=== PATIENT | female | born 1945 | race Caucasian/White ===

== ENCOUNTER 2019-03-04 15:16 | Inpatient (IN) ==
[2019-03-04 15:54] LABS: BASO# 0.06 X1000 (0.0-0.2); BASO% 0.5 % (0.0-0.8); EOS# 0.24 X1000 (0.0-0.7); EOS% 2.1 % (0.0-10.0); HEMATOCRIT 34.8 % (37.0-47.0); HEMOGLOBIN 10.9 g/dL (12.0-16.0); IMM GRAN# 0.04 X1000 (0.0-0.04); IMM GRAN% 0.4 % (0.0-0.5); LYMPH# 1.83 X1000 (1.2-3.4); MCH 29.1 PG (27-31); MCHC 31.3 g/dL (33-37); MONO# 0.93 X1000 (0.11-0.59); MONO% 8.2 % (1.7-9.3); MPV 10.1 FL (7.4-10.4); NEUT# 8.31 X1000 (1.4-6.5); NEUT% 72.8 % (42.2-75.2); PLT 219 X1000 (130-400); RBC 3.74 XMIL (4.2-5.4); RDW 15.4 % (11.5-14.5); WBC 11.41 X1000 (4.8-10.8)
[2019-03-04] MEDS ORDERED: SOLU-MEDROL IV ONE (15:55)
[2019-03-04] MEDS ORDERED: DUONEB (A & A) INH ONE (15:55)
--- NOTE | 2019-03-04 16:00 | EKG Report ---
Test Performed on : 03/04/2019 3:36:19 PM Test Reason : sob Blood Pressure : / mmHG Vent. Rate : 067 BPM Atrial Rate : 067 BPM P-R Int : 136 ms QRS Dur : 090 ms QT Int : 426 ms P-R-T Axes : 049 008 090 degrees QTc Int : 450 ms Normal sinus rhythm. Nonspecific T wave abnormality Abnormal ECG When compared with ECG of 12-NOV-2018 06:53, Nonspecific T wave abnormality, worse in Lateral leads Unconfirmed Result
[2019-03-04 16:08] LABS: INR 0.87; PROTIME 12.6 Seconds (11.0-16.0); PTT 21.4 Seconds (22.3-41.8)
[2019-03-04] MEDS ORDERED: ZOFRAN IV ONE (16:25)
[2019-03-04 16:44] LABS: ALB/GLOB RATIO 1.4; ALBUMIN 3.6 g/dL (3.5-5.0); CALCIUM 8.8 mg/dL (8.8-10.2); CREATININE 1.1 mg/dL (0.5-0.9); POTASSIUM 4.4 mmol/L (3.5-5.1); TOTAL BILIRUBIN 0.25 mg/dL (0.20-1.00); TOTAL PROTEIN 6.1 g/dL (6.3-8.3)
--- NOTE | 2019-03-04 17:11 | Diag Imaging Result Doc PS360 ---
EXAM: CHEST-2 VIEWS INDICATION: sob TECHNIQUE: 2 views COMPARISON: 11/11/2018 FINDINGS: The central vasculature appears mildly prominent suggesting mild pulmonary venous congestion similar to the previous study. The lungs are grossly clear, otherwise. There is no discrete pleural fluid collection or pneumothorax. There is stable cardiomegaly. IMPRESSION: Cardiomegaly and suggestion of mild pulmonary venous congestion. Electronically signed by Sagar Hunter 03/04/2019 5:09 PM
[2019-03-04] MEDS ORDERED: LASIX IV ONE (17:57)
--- NOTE | 2019-03-04 18:07 | PROVIDER DOCUMENTATION ---
This chart was entered by Uyen Gottlieb Scribe, acting as scribe for Leland Garza MD. HPI-Respiratory General - General Chief Complaint: Shortness of Breath Stated Complaint: SMOTHERING SPELLS/HIGH BP Time Seen by Provider: 03/04/19 15:36 Source: patient Allergies/Adverse Reactions: Patient Allergies Allergy/AdvReac Type Severity Reaction Status Date / Time amoxicillin Allergy SHORTNESS Verified 03/04/19 18:00 OF BREATH clarithromycin [From Biaxin] Allergy Unknown Verified 03/04/19 18:00 clavulanic acid Allergy SHORTNESS Verified 03/04/19 18:00 [From Augmentin] OF BREATH levofloxacin [From Levaquin] Allergy Unknown Verified 03/04/19 18:00 NSAIDS (Non-Steroidal Allergy Unknown Verified 03/04/19 18:00 Anti-Inflamma Penicillins Allergy Unknown Verified 03/04/19 18:00 pork derived (porcine) Allergy Unknown Verified 03/04/19 18:00 shellfish derived Allergy Unknown Verified 03/04/19 18:00 spironolactone Allergy Unknown Verified 03/04/19 18:00 [From Aldactone] Home Medications: Home Medication List Medication Instructions Recorded Confirmed Last Taken Type Aspirin [Aspir-Low] 81 mg PO QHS 11/26/17 11/11/18 11/10/18 History Budesonide/Formoterol Fumarate 10.2 gm IH QHS 11/26/17 11/11/18 11/10/18 History [Symbicort 160-4.5 Mcg Inhaler] Duloxetine [Cymbalta] 60 mg PO QHS 11/26/17 11/11/18 1 Day Ago History ~11/10/18 Hydroxychloroquine Sulfate 200 mg PO BID 11/26/17 11/11/18 11/10/18 History [Plaquenil] Isosorbide Mononitrate E.r. [Imdur] 30 mg PO DAILY 11/26/17 11/11/18 11/10/18 History Levothyroxine Sodium [Synthroid] 200 microgm PO QHS 11/26/17 11/11/18 11/10/18 History Montelukast Sodium [Singulair] 10 mg PO QAM 11/26/17 11/11/18 11/10/18 History Omeprazole [Prilosec] 20 mg PO BID 11/26/17 11/11/18 11/10/18 History Potassium Chloride [Klor-Con] 20 meq PO QAM 11/26/17 11/11/18 11/10/18 History Pregabalin [Lyrica] 50 mg PO QHS 11/26/17 11/11/18 11/10/18 History Tiotropium Bent Inhaler 1 puff INH RTDAILY 11/26/17 11/11/18 11/10/18 History [Spiriva] Tramadol [Ultram] 50 mg PO Q8HR PRN #20 tab 12/06/17 11/11/18 11/10/18 Rx Cholecalciferol (Vitamin D3) 2,000 unit PO DAILY 03/30/18 11/11/18 11/10/18 History [Vitamin D3] Cyanocobalamin (Vitamin B-12) 1,000 mcg SL DAILY 03/30/18 11/11/18 11/10/18 History [Vitamin B-12] Nitroglycerin 0.4 mg SL PRN PRN 03/30/18 11/11/18 Unknown History Metoprolol Succinate [Toprol Xl] 50 mg PO DAILY 04/02/18 11/11/18 11/10/18 History - History of Present Illness-Resp Nature of Presenting Problem: Patient is a 73 year old female who presents with shortness of breath that started 5 days ago. States having chest pain that radiates to left arm, nausea and vomiting this morning. History of COPD and uses CPAP. Denies home oxygen use. Patient's O2 sat on room air was 88%. Quality of Pain: reports: tightness Severity in ED: reports: mild Onset/Duration: reports: 5 days ago Timing: reports: still present, getting worse Associated Symptoms: reports: chest pain/soreness, shortness of breath, other (nausea and vomiting.) Similar Symptoms Previously?: Yes Recently seen or treated by another doctor?: No Review of Systems - Adult - REVIEW OF SYSTEMS - ADULT Constitutional: reports: no symptoms reported. denies: chills, fever, fatique Eyes: reports: no symptoms reported Ears, Nose, Mouth & Throat: reports: no symptoms reported Cardiovascular: reports: see HPI, chest pain. denies: irregular heart rate, palpitations Respiratory: reports: see HPI, shortness of breath. denies: cough, wheezing Gastrointestinal: reports: see HPI, nausea, vomiting. denies: abdominal pain, diarrhea Genitourinary: reports: no symptoms reported Musculoskeletal: reports: no symptoms reported Integumentary: reports: no symptoms reported Neurological: reports: no symptoms reported Psychiatric: reports: no symptoms reported Endocrine: reports: no symptoms reported Hematologic/Lymphatic: reports: no symptoms reported Allergic/Immunologic: reports: no symptoms reported All Other Systems: Reviewed and Negative Past History - Adult - PAST MEDICAL HISTORY-ADULT Review of Records: reports: Old Records Reviewed, Nursing Assessment Review, M edications Reviewed, Social history reviewed & non-contributory. Major Childhood Illnesses: reports: denies history Cardiovascular: reports: CHF, HTN, [place] Respiratory: reports: COPD, sleep apnea Gastrointestinal: reports: GERD Obstetrical/Gynecological: reports: denies history Genitourinary: reports: kidney disease Musculoskeletal: reports: denies history Neurological: reports: CVA, TIA Psychiatric: reports: depression Endocrine/Immune: reports: thyroid disorder Other Conditions: reports: denies history, other (fibromylegia) - PRIOR SURGERIES/PROCEDURES Surgical/Procedure History: reports: reviewed, not pertinent, cholecystectomy, hysterectomy, - IMMUNIZATION STATUS Childhood Immunizations: See Nurse Assessment Flu Vaccine: See Nurse Assessment - FAMILY HISTORY Family History: reviewed, not pertinent - SOCIAL HISTORY Smoking: cigarettes (former) Substance Use: denies Physical Exam-General - PHYSICAL EXAM-ADULT Initial Vital Signs Reviewed: Yes - CONSTITUTIONAL General Appearance: alert, no apparent distress. negative: lethargic, slow to respond - HEAD, EARS, NOSE, MOUTH & THROAT HENMT: normocephalic/atraumatic, moist mucous membranes. negative: angioedema, hearing deficit - RESPIRATORY Respiratory: chest non-tender, decreased breath sounds. negative: respiratory distress, crackles, rhonchi, wheezing - CARDIOVASCULAR Cardiovascular: normal peripheral pulses, regular rate, rhythm. negative: tachycardia, systolic murmur - GASTROINTESTINAL (ABDOMEN) Abdominal Exam: normal bowel sounds, non tender, soft. negative: guarding, rebound - MUSCULOSKELETAL Extremity: non-tender, normal inspection. negative: deformity, erythema, swelling - SKIN Integumentary: normal color, normal turgor, warm/dry. negative: cyanosis, ecchymosis, erythema, jaundice - NEUROLOGIC Neurologic: grossly normal. negative: aphasia, facial droop - PSYCHIATRIC Psych/Mental Status: normal mood/affect, oriented x 3. negative: anxious - HEART Score HEART Score: History: Slightly Suspicious HEART Score: ECG: Non-Specific Repolarization Disturbance/LBBB/PM HEART Score: Age: > or = 65 Years HEART Score: Risk Factors for Atherosclerotic Disease: > or = 3 Risk Factors or History of Atherosclerotic Disease HEART Score: Troponin: < or = Normal Limit (5) Total HEART Score:: 5 Progress - PLAN OF CARE/RESULTS Progress/Plan/Lab Results: Vital Signs - 8 hr 03/04/19 15:20 03/04/19 15:39 03/04/19 15:41 Temperature 99.1 F Pulse Rate 74 69 69 Respiratory Rate 24 22 38 H Blood Pressure 185/93 170/85 O2 Sat by Pulse Oximetry 91 L 90 L 90 L 03/04/19 15:50 03/04/19 16:00 03/04/19 16:02 Temperature Pulse Rate 68 66 66 Respiratory Rate 32 H 19 31 H Blood Pressure 186/81 O2 Sat by Pulse Oximetry 92 L 91 L 92 L 03/04/19 16:09 03/04/19 16:10 03/04/19 16:20 Temperature Pulse Rate 67 67 65 Respiratory Rate 27 H 25 H 28 H Blood Pressure O2 Sat by Pulse Oximetry 94 L 96 96 03/04/19 16:30 03/04/19 16:40 03/04/19 16:51 Temperature Pulse Rate 69 76 69 Respiratory Rate 22 19 21 Blood Pressure O2 Sat by Pulse Oximetry 93 L 90 L 03/04/19 17:00 03/04/19 17:10 03/04/19 17:20 Temperature Pulse Rate 70 69 71 Respiratory Rate 21 30 H 24 Blood Pressure O2 Sat by Pulse Oximetry 92 L 91 L 03/04/19 17:30 03/04/19 17:31 03/04/19 17:32 Temperature Pulse Rate 71 70 69 Respiratory Rate 17 24 21 Blood Pressure 194/82 182/77 O2 Sat by Pulse Oximetry 90 L 92 L 89 L 03/04/19 17:40 03/04/19 17:50 03/04/19 17:58 Temperature Pulse Rate 72 70 77 Respiratory Rate 20 17 25 H Blood Pressure 197/92 O2 Sat by Pulse Oximetry 93 L 93 L 03/04/19 18:00 Temperature Pulse Rate 76 Respiratory Rate 26 H Blood Pressure 197/92 O2 Sat by Pulse Oximetry 86 L Laboratory Results - last 24 hr 03/04/19 03/04/19 03/04/19 15:35 15:35 16:10 WBC 11.41 H RBC 3.74 L Hgb 10.9 L Hct 34.8 L MCV 93.0 MCH 29.1 MCHC 31.3 L RDW Std Deviation 15.4 H Plt Count 219 MPV 10.1 Immature Gran % (Auto) 0.4 Neut % (Auto) 72.8 Lymph % (Auto) 16.0 L [place] % (Auto) 8.2 Eos % (Auto) 2.1 Baso % (Auto) 0.5 Immature Gran # (Auto) 0.04 Neut # (Auto) 8.31 H Lymph # (Auto) 1.83 [place] # (Auto) 0.93 H Eos # (Auto) 0.24 Baso # (Auto) 0.06 PT 12.6 INR 0.87 PTT (Actin FS) 21.4 L Sodium 142 Potassium 4.4 Chloride 104 Carbon Dioxide 28 Anion Gap 10 BUN 14 Creatinine 1.1 H Estimated GFR/1.73 m2 49 BUN/Creatinine Ratio 13 Glucose 89 Calculated Osmolality 283 Calcium 8.8 Total Bilirubin 0.25 AST 32 H ALT 28 Alkaline Phosphatase 132 H Creatine Kinase 79 Troponin T [id number] Pept Total Protein 6.1 L Albumin 3.6 Globulin 2.5 Albumin/Globulin Ratio 1.4 03/04/19 03/04/19 16:10 16:10 WBC RBC Hgb Hct MCV MCH MCHC RDW Std Deviation Plt Count MPV Immature Gran % (Auto) Neut % (Auto) Lymph % (Auto) [place] % (Auto) Eos % (Auto) Baso % (Auto) Immature Gran # (Auto) Neut # (Auto) Lymph # (Auto) [place] # (Auto) Eos # (Auto) Baso # (Auto) PT INR PTT (Actin FS) Sodium Potassium Chloride Carbon Dioxide Anion Gap BUN Creatinine Estimated GFR/1.73 m2 BUN/Creatinine Ratio Glucose Calculated Osmolality Calcium Total Bilirubin AST ALT Alkaline Phosphatase Creatine Kinase Troponin T < 0.010 [id number] Pept 1739 H Total Protein Albumin Globulin Albumin/Globulin Ratio Orders Category Date Time Status Cardiac Monitoring DIRECTED Care 03/04/19 15:27 Active Oxygen Therapy- ED Nursing DIRECTED Care 03/04/19 15:27 Active Saline Loc NOW Care 03/04/19 15:27 Active CHEST-2 VIEWS [RAD] Stat Exams 03/04/19 15:27 Completed CBC WITH ELECTRONIC DIFF [HEME] Stat Lab 03/04/19 15:35 Completed CK PROFILE [SP CHEM] Stat Lab 03/04/19 16:10 Completed COMPREHENSIVE METABOLIC PANEL [CHEM] Stat Lab 03/04/19 16:10 Completed PRO B-NATRIURETIC PEPTIDE Stat Lab 03/04/19 16:10 Completed PROTIME WITH INR [COAG] Stat Lab 03/04/19 15:35 Completed PTT [COAG] Stat Lab 03/04/19 15:35 Completed TROPONIN T Stat Lab 03/04/19 16:10 Completed Albuterol 2.5MG/Ipratrop 0.5MG [Duoneb (A & A)] Med 03/04/19 15:55 Discontinued 3 ml INH NOW ONE Furosemide [Lasix] Med 03/04/19 17:57 Discontinued 20 mg IV NOW ONE Methylprednisolone Sod Succ [Solu-Medrol] Med 03/04/19 15:55 Discontinued 80 mg IV NOW ONE Ondansetron [Zofran] Med 03/04/19 16:25 Discontinued 4 mg IV NOW ONE Aerosol Treatments Routine Oth 03/04/19 15:56 Completed Aerosol Treatments Stat Oth 03/04/19 15:56 Completed CP/SOB/Palp >45 yrs of Age Stat Oth 03/04/19 15:25 Ordered EKG [EKG] Stat Ther 03/04/19 15:27 Draft A/P: hypoxia , sat 86% not using home oxygen, Xray pulmonary edema. CP rule out, initial sets troponin neg. has history of IL with stints. BP increased, but had BP to 215/104. Result Diagrams: 03/04/19 15:35 03/04/19 16:10 - EKG 1 Time of EKG reading by physician:: 15:36 EKG Read and Signed by:: Юлия Pham EKG Interpretation (*Must complete 3 of following elements*): Abnormal Rate: 67 Rhythm: normal sinus rhythm [place]: normal DC Interval: normal Comments: nonspecific T wave abnormality - XRAY 1 XRAY Study: Chest Impression: Abnormal ([facility] [address], [address], [place] [address] Department of Imaging Patient: [facility] Date: 03/04/19#: [id number] : 1945ADM [facility] [id number] Age/Sex: 73/FRoom/Bed: Loc: ED Ordering Physician: Юлия Pham MD Family Physician: Annetta Weiss Reason for Procedure: sob Signed EXAM: CHEST-2 VIEWS INDICATION: sob TECHNIQUE: 2 views COMPARISON: 11/11/2018 FINDINGS: The central vasculature appears mildly prominent suggesting mild pulmonary venous congestion similar to the previous study. The lungs are grossly clear, ot herwise. There is no discrete pleural fluid collection or pneumothorax. There is stable cardiomegaly. IMPRESSION: Cardiomegaly and suggestion of mild pulmonary venous congestion. Electronically signed by Sagar Hunter 03/04/2019 5:09 PM 03/04/191708 Interpreting Physician: Sagar Hunter MD Dictated Date/Time: 03/04/191707 cc: Юлия Pham MD; Annetta Weiss) Departure - Departure Date of Disposition Decision: 03/04/19 Time of Disposition Decision: 18:05 DIAGNOSIS: Hypoxia, Pulmonary edema, Chest pain at rest Disposition: ADMITTED INPATIENT 09 Certified Medical Emergency: Emergent Condition: Stable Additional Freetext Instructions: We have examined and treated you today on an emergency basis only. This was not a substitute for, or an effort to provide, complete medical care. In most cases, you must let your doctor check you again. Tell your doctor about any new or lasting problems. We cannot recognize and treat all injuries or illnesses in one Emergency Department visit. If you had special tests, such as X-rays or CT scans, will be reviewed by radiologist and will call you if there are any new suggestions Follow up with primary care provider in 1 to 2 days if no improvement. If you do not have a primary care provider, you need to choose one as soon as possible. Take medicines as prescribed. Monitor for any side effects or adverse events from medications. If any side effect, adverse event or rash develops, or if you suspect any other adverse reaction to the medication, then discontinue the medication immediately and contact clinic /PCP or go to the nearest ER. Narcotic meds / sedative meds instruction - patent advised not to drive, operate any machinery or go into water after taking meds as it may impair mental ability to react to the situation in an appropriate manner . Continue other current medicines. Follow up with PCP within 24-48 hours, or sooner if symptoms worsen or fail to improve. Patient / guardian verbalizes understanding of treatment plan, medication, and side effects and agrees with treatment plan. Patient leaves ER in stable condition and ambulatory state. Return to ER as needed. Discharge instructions reviewed verbally and given to patient in written form. Follow up with primary care provider. Referrals and Follow-Ups: Annetta Weiss CRNP [Primary Care Provider] - - Critical Care Note This patient required my direct & personal management of CC.: No Attestation - Physician/ KAUSHIK Attestation Patient care was provided by Advanced Practice Provider:: No The physician spent face to face time with patient:: Yes Advanced Practice Provider documentation review:: Supervising physician onsite and consulted in the evaluation and care of this patient. The physician did have a face to face encounter with the patient. This chart was documented by the indicated scribe, (Uyen Gottlieb Scribe) and accurately reflects the services I performed and decisions made by me, Leland Larry MD, as attested by the provider's signature.
[2019-03-04] MEDS ORDERED: NITROGLYCERIN SL PRN (18:20)
[2019-03-04] MEDS ORDERED: ULTRAM PO PRN (18:20)
[2019-03-04] MEDS ORDERED: TYLENOL PO PRN (19:25)
[2019-03-04] MEDS ORDERED: ZOFRAN IV PRN (19:25)
[2019-03-04] MEDS ORDERED: DUONEB (A & A) INH SCH (19:30)
[2019-03-04] MEDS ORDERED: SYNTHROID PO SCH (21:00)
--- NOTE | 2019-03-04 21:17 | HISTORY AND PHYSICAL ---
PRIMARY CARE PROVIDER: BEVERLY García CHIEF COMPLAINT: Shortness of breath, elevated blood pressure, nausea, vomiting, and chest pain that radiated into her neck that has been present for the past 5 days and progressively worsened. HISTORY OF PRESENTING ILLNESS: This is a 73-year-old female who presents to [facility] with shortness of breath, along with some chest pain substernal that radiated into her neck. She had nausea and vomiting this morning, but the others have been going on for 5 days and progressively worsened. When she arrived, she had an O2 saturation on room air of 86% to 88%. Denies home oxygen use but states that she does use a CPAP at night. She states that since she has been using the CPAP, she has had an increase in falls and dizziness. Her chest x-ray showed cardiomegaly and suggestion of mild pulmonary venous congestion. Her proBNP was elevated at 1739, which is the highest it has been for her. In October it was 763, so these presentations are consistent with an acute CHF exacerbation. It is noted that she had an echocardiogram in 10/2018 that showed an ejection fraction of 55% with left ventricular function normal. On arrival her blood pressure was 185/93, currently it is 197/92. She is receiving Lasix 20 mg IV x1 at this moment, and she will be admitted for further evaluation and treatment. PAST MEDICAL HISTORY: CHF, hypertension, MT, COPD, sleep apnea, GERD, CKD, CVA, depression, hypothyroidism, fibromyalgia. PAST SURGICAL HISTORY: Cholecystectomy, hysterectomy and a . FAMILY HISTORY: Reviewed and noncontributory. SOCIAL HISTORY: She currently lives alone, is a former smoker but has not smoked in many years. Denies any alcohol or illicit drug use. ALLERGIES: Amoxicillin, clarithromycin, Augmentin, Levaquin, NSAIDs, penicillin, pork-derived, shellfish-derived and spironolactone. HOME MEDICATIONS: She takes aspirin 81 mg p.o. at bedtime; Symbicort 160/4.5 mcg inhaler at bedtime; vitamin D3, 2000 units p.o. daily; vitamin B12, 1000 mcg sublingually daily; Cymbalta 60 mg p.o. at bedtime; Plaquenil 200 mg p.o. b.i.d.; Imdur 30 mg p.o. daily; Synthroid 200 mcg p.o. at bedtime; Toprol 50 mg p.o. daily; montelukast sodium 10 mg p.o. q.p.m.; nitroglycerin 0.4 mg sublingually p.r.n.; Prilosec 20 mg p.o. b.i.d.; potassium 20 mEq p.o. q.a.m.; Lyrica 50 mg p.o. at bedtime; Spiriva 1 inhalation daily; Ultram 50 mg p.o. q.8 hours p.r.n. LABORATORY DATA: White blood cell count of 11.41, hemoglobin 10.9, hematocrit 34.8, platelets 219,000. PT and INR of 12.6 and 0.87. Sodium 142, potassium 4.4, chloride 104, CO2 is 28, BUN 14, creatinine 1.1, glucose 89. First set of cardiac enzymes were negative. ProBNP of 1739. DIAGNOSTIC DATA: Chest x-ray showed cardiomegaly and a suggestion of mild pulmonary venous congestion. EKG showed normal sinus rhythm at 67. REVIEW OF SYSTEMS: She denied any fever, chills or blurred vision. She has been positive for shortness of breath and chest pain that radiated into her neck, nausea and vomiting. Denied any abdominal pain, constipation, diarrhea or burning or hurting with urination. PHYSICAL EXAMINATION: VITAL SIGNS: On arrival she had a temperature of 99.1 degrees, pulse 74, respirations 24, blood pressure 185/93, saturating 91% on room air. She did drop to 86% to 88% on room air. Currently on 2 L, she is 94% via nasal cannula. GENERAL: This is a 73-year-old female who is sitting up in the bed and answers questions appropriately. HEENT: Normocephalic, atraumatic. Normal ENT inspection. Oropharynx and nares are clear. EYES: Pupils are equal, round and reactive to light and accommodation. Extraocular movements are intact. NECK: Normal inspection. Normal range of motion. LUNGS: Decreased breath sounds bilaterally. O2 via nasal cannula currently in use. Equal lung expansion and chest wall movement noted at this time. HEART: Regular rate and rhythm. No murmurs, rubs or gallops. ABDOMEN: Soft, nontender, nondistended. Bowel sounds are present x4 quadrants. MUSCULOSKELETAL: She has 5/5 strength x4 extremities. NEUROLOGICAL: The cranial nerves 2-12 appear grossly intact. ASSESSMENT: 1. Chest pain. 2. Acute respiratory failure. 3. Acute congestive heart failure exacerbation with pulmonary edema. 4. Accelerated hypertension. PLAN: She will be admitted to the CIC unit, placed on telemetry, O2 per protocol. We will do Lasix 40 mg IV q.12. We will recheck an echocardiogram. We know she has had one in October, but suspicion of an exacerbation and possible cardiac event so we will repeat that. We will continue her other home medications. Place her on a healthy-heart diet. Use her CPAP at night. Recheck a CBC and BMP in the a.m. We will do her serial cardiac enzymes and further orders after seen by attending. Dictated by BEVERLY Green for Jeronimo Zavala MD cc: BEVERLY Green CRNP Agree with the above. the following is my own face to face assessment. patient with acute hypoxic respiratory failure. has been off her lasix for almost a week. last echo with pulmonary htn but no ronit CHF. suspect she has at least a component of acute on chronic diastolic CHF. given signficant change in BNP, will repeat echo and trend troponins. diuresis and monitor. bibasilar crackles on exam. globally decreased air entry but no wheezing. will continue home steroid dose as she has been on a slow taper for almost 2 months. CKD3: stable. monitor ins and outs. gerd: cont PPI COPD: no exacerbation at this time. will give nebs. hypothyroidism: check TSH. cont synthroid CAD: continue home meds. MTDD
[2019-03-04] MEDS: SYMBICORT 160/4.5 MICROGM INHALER INH SCH (21:24)
[2019-03-04] MEDS: PRILOSEC PO SCH (22:25)
[2019-03-04] MEDS: LASIX IV SCH (22:26)
[2019-03-04] MEDS: ASPIRIN EC PO SCH (22:26)
[2019-03-04] MEDS: CYMBALTA PO SCH (22:26)
[2019-03-04] MEDS: PLAQUENIL PO SCH (22:33)
[2019-03-04] MEDS: LYRICA PO SCH (22:35)
[2019-03-05 03:22] LABS: HEMATOCRIT 34.8 % (37.0-47.0); HEMOGLOBIN 11.1 g/dL (12.0-16.0); MCH 29.2 PG (27-31); MCHC 31.9 g/dL (33-37); MCV 91.6 FL (81-99); MONO% 1.5 % (1.7-9.3); MPV 10.1 FL (7.4-10.4); NEUT% 90.2 % (42.2-75.2); PLT 232 X1000 (130-400); RDW 14.9 % (11.5-14.5); WBC 8.12 X1000 (4.8-10.8)
[2019-03-05 03:23] LABS: BASO# 0.01 X1000 (0.0-0.2); BASO% 0.1 % (0.0-0.8); IMM GRAN# 0.02 X1000 (0.0-0.04); IMM GRAN% 0.2 % (0.0-0.5); LYMPH# 0.65 X1000 (1.2-3.4); MONO# 0.12 X1000 (0.11-0.59); NEUT# 7.32 X1000 (1.4-6.5)
[2019-03-05 04:09] LABS: ALB/GLOB RATIO 1.2; ALBUMIN 3.7 g/dL (3.5-5.0); CALCIUM 8.9 mg/dL (8.8-10.2); CREATININE 1.1 mg/dL (0.5-0.9); DIRECT BILIRUBIN 0.1 mg/dL (0.00-0.20); POTASSIUM 3.8 mmol/L (3.5-5.1); TOTAL BILIRUBIN 0.28 mg/dL (0.20-1.00); TOTAL PROTEIN 6.9 g/dL (6.3-8.3)
[2019-03-05 05:48] LABS: URINE SOURCE CLEAN CATCH
[2019-03-05 05:50] LABS: BILIRUBIN URINE NEGATIVE (NEGATIVE); BLOOD URINE NEGATIVE (NEGATIVE); COLOR YELLOW; GLUCOSE URINE NEGATIVE (NEGATIVE); KETONE URINE NEGATIVE (NEGATIVE); LEUKOCYTES URINE NEGATIVE (NEGATIVE); NITRITE URINE NEGATIVE (NEGATIVE); PROTEIN URINE NEGATIVE (NEGATIVE); SP GRAVITY URINE 1.009; TURBIDITY URINE CLEAR (CLEAR); UROBILINOGEN URINE NORMAL (NORMAL)
[2019-03-05 05:51] LABS: URINE RBC <10 /HPF (<10); URINE WBC <10 /HPF (<10)
[2019-03-05 05:52] LABS: UR EPITHELIAL CELLS <10 /HPF (<10); URINE BACTERIA NEGATIVE /HPF
[2019-03-05] MEDS: NORVASC PO SCH ×2 (06:20→09:24)
[2019-03-05] MEDS: DUONEB (A & A) INH PRN ×3 (08:07→16:23)
[2019-03-05] MEDS: SPIRIVA INH SCH (08:12)
[2019-03-05] MEDS ORDERED: VITAMIN B-12 PO SCH (09:00)
[2019-03-05] MEDS ORDERED: VITAMIN D PO SCH (09:00)
[2019-03-05] MEDS: PLAQUENIL PO SCH ×2 (09:24→21:21)
[2019-03-05] MEDS: TOPROL XL PO SCH (09:24)
[2019-03-05] MEDS: KLOR-CON POWDER PACKET PO SCH (09:24)
[2019-03-05] MEDS: PREDNISONE PO SCH (09:24)
[2019-03-05] MEDS: IMDUR PO SCH (09:24)
[2019-03-05] MEDS: SINGULAIR PO SCH (09:24)
[2019-03-05] MEDS: PRILOSEC PO SCH ×2 (09:24→21:21)
[2019-03-05] MEDS: LASIX IV SCH ×2 (09:24→21:21)
[2019-03-05] MEDS: MIRALAX PO SCH (09:26)
--- NOTE | 2019-03-05 18:10 | PROGRESS NOTE ---
DATE: 03/05/2019 INTERVAL HISTORY: The patient with significant improvement in dyspnea and a feeling of smothering with diuresis overnight. Still complaining of aching to burning pain that comes and goes from her epigastrium to the base of her throat. Also reports this discomfort radiates to the back somewhat. Denies nausea, vomiting, diarrhea, fever, chills. No acute events overnight. REVIEW OF SYSTEMS: 12 point review of systems negative except as per Interval History. LABS: WBC 8.1, hemoglobin 11.1, hematocrit 34.8, platelets 232,000. Sodium 142, potassium 3.8, BUN 15, creatinine 1.1, glucose 142, AST 27, ALT 27, alkaline phosphatase 135. Troponin negative x 3. TSH 0.1, free T4 1.56. Urinalysis normal. VITAL SIGNS: T-max 98.5, pulse 70, respirations 17, blood pressure 145/65. O2 sat 99% on 2 L by nasal cannula. PHYSICAL EXAMINATION: General: No acute distress. Vitals: As above. HEENT: Normocephalic, atraumatic. Moist mucous membranes. No cervical adenopathy. Cardiovascular: Regular rate and rhythm. No murmurs noted. Pulmonary: Still with faint bibasilar crackles on exam, but improved from previous. Slightly decreased air entry, but no wheezing noted. Abdomen: Soft. Mild epigastric tenderness without rebound or guarding. Bowel sounds positive. Extremities: Peripheral pulses intact. Trace lower extremity edema bilaterally. Neurologic: Cranial nerves grossly intact. No focal deficits. Psychiatric: Normal mood and affect. Awake, alert, oriented x 3. Skin: No new rashes or lesions identified. ASSESSMENT AND PLAN: 1. Acute hypoxic respiratory failure. Patient with O2 saturations down to 86% on room air on arrival in the ED. Mild cardiomegaly and pulmonary venous congestion on initial x-ray. BNP significantly elevated from previous at 1739, last BNP 763. Minimal leukocytosis, but no convincing evidence of infection. Presumably placed on Lasix for presumed acute on chronic diastolic congestive heart failure and pulmonary hypertension. The patient has responded well to Lasix overnight. Symptomatically much improved. Oxygen sats slightly improved. Still had sats as low as 91% on 2 L of oxygen, but overall trend seems to be improved. Remains afebrile. No leukocytosis today. Will continue Lasix and monitor. Repeat echocardiogram pending. Last echocardiogram showed enlarged left ventricle, mild pulmonary hypertension with pressure of 38. No clear diastolic dysfunction. Normal EF of 55%. 2. Acute on chronic diastolic congestive heart failure, pulmonary hypertension. Treatment and evaluation as above. Repeat chest x-ray in the morning. 3. Chronic obstructive pulmonary disease. The patient with definitely decreased breath sounds, but no wheezing on exam. Likely contributing to respiratory issues, but no signs of exacerbation at this time. Continue nebulizers and monitor. 4. Abdominal pain, gastroesophageal reflux disease. The patient reports epigastric pain with radiation to the back and up to the base of the throat. Favor GERD, especially in light of patient's long history of GERD and history of H pylori. However, given location tenderness and radiation to the back, we will check a lipase to evaluate for pancreatitis, although this is felt to be much less likely. Continue PPI and monitor. If patient continues to have issues despite PPI, then may need evaluation by GI for failure of therapy for H pylori, although this could likely be done as an outpatient. 5. Hypertension. Patient with some occasional moderate elevations, but overall acceptable control on current Norvasc, Lasix, isosorbide, metoprolol. 6. Coronary artery disease, continue aspirin. 7. Chronic kidney disease 3. Creatinine stable, monitor. 8. Chronic pain. Continue home tramadol. 9. Hypothyroidism. TSH slightly low, but free T4 within normal limits. Continue current dose of Synthroid for now, but recommend recheck with PCP after discharge to see if her Synthroid dose may need to be adjusted. MTDD
[2019-03-05] MEDS: SYMBICORT 160/4.5 MICROGM INHALER INH SCH (20:20)
[2019-03-05] MEDS: ASPIRIN EC PO SCH (21:21)
[2019-03-05] MEDS: CYMBALTA PO SCH (21:21)
[2019-03-05] MEDS: LYRICA PO SCH (21:25)
[2019-03-06] MEDS: SYNTHROID PO SCH (06:19)
--- NOTE | 2019-03-06 07:09 | Diag Imaging Result Doc PS360 ---
EXAM: CHEST-PORTABLE HISTORY: dyspnea TECHNIQUE: Chest single view COMPARISON: 03/04/2019 FINDINGS: The lungs are well expanded. The heart is mildly enlarged. The vessels are mildly distended. There are no infiltrates. No effusion identified. IMPRESSION: Mild cardiomegaly with mild pulmonary edema. No interval improvement. Electronically signed by Lukasz Barraza 03/06/2019 7:06 AM
[2019-03-06 07:19] LABS: BASO# 0.04 X1000 (0.0-0.2); BASO% 0.4 % (0.0-0.8); EOS# 0.15 X1000 (0.0-0.7); EOS% 1.4 % (0.0-10.0); HEMATOCRIT 35.3 % (37.0-47.0); HEMOGLOBIN 11.3 g/dL (12.0-16.0); IMM GRAN# 0.04 X1000 (0.0-0.04); IMM GRAN% 0.4 % (0.0-0.5); LYMPH# 2.21 X1000 (1.2-3.4); LYMPH% 20.5 % (20.5-51.1); MCH 29.4 PG (27-31); MCV 91.9 FL (81-99); MONO# 0.93 X1000 (0.11-0.59); MONO% 8.6 % (1.7-9.3); MPV 10.1 FL (7.4-10.4); NEUT% 68.7 % (42.2-75.2); PLT 250 X1000 (130-400); RBC 3.84 XMIL (4.2-5.4); WBC 10.77 X1000 (4.8-10.8)
[2019-03-06 07:47] LABS: CALCIUM 8.7 mg/dL (8.8-10.2); CREATININE 1.3 mg/dL (0.5-0.9); POTASSIUM 3.8 mmol/L (3.5-5.1)
[2019-03-06] MEDS: SPIRIVA INH SCH (07:51)
[2019-03-06] MEDS: NORVASC PO SCH (08:13)
[2019-03-06] MEDS: KLOR-CON POWDER PACKET PO SCH (08:13)
[2019-03-06] MEDS: MIRALAX PO SCH (08:13)
[2019-03-06] MEDS: TOPROL XL PO SCH (08:13)
[2019-03-06] MEDS: PRILOSEC PO SCH ×2 (08:13→21:21)
[2019-03-06] MEDS: PLAQUENIL PO SCH ×2 (08:13→21:20)
[2019-03-06] MEDS: SINGULAIR PO SCH (08:13)
[2019-03-06] MEDS: IMDUR PO SCH (08:14)
[2019-03-06] MEDS: PREDNISONE PO SCH (08:14)
[2019-03-06] MEDS: LASIX IV SCH (08:14)
[2019-03-06] MEDS: DUONEB (A & A) INH PRN ×3 (11:32→19:55)
--- NOTE | 2019-03-06 17:05 | PROGRESS NOTE ---
DATE: 03/06/2019 INTERVAL HISTORY: No acute events overnight. She was hypertensive with systolic blood pressure 190 on presentation which had gone down to 140. She is still needing oxygen. SUBJECTIVE: She is feeling much better at least at rest as compared to when she came in with. We discussed about physical exam findings. I answered all of her questions. Currently, she is denying any chest pain. She denies any shortness of breath at rest. She has not really done a lot of ambulation. She still complains of occasional burning sensation in epigastric region, which is intermittent. VITAL SIGNS: Currently vitals suggest temperature 97.8 degrees, pulse 62, respiratory rate 20, blood pressure 148/76, saturating 97% on 2 L cannula. PHYSICAL EXAMINATION: General: Does not appear in any acute distress. Mouth: Oral cavity is moist. Lungs: She has inspiratory crackles bilateral infrascapular region. No wheeze or rhonchi. Heart: S1, S2 normal. No murmur, rub, or gallop. Abdomen: Obese, nontender. Extremities: She does have bilateral lower extremity edema extending up to knee level. LABS: Input and output not charted appropriately, though she had good urine output according to her. Normocytic anemia, normal platelet count. On BMP, she had elevation in her BUN and slight elevation of creatinine. MICROBIOLOGY: No new data. IMAGING: Chest x-ray today morning suggests she has persistent bilateral pulmonary edema. ASSESSMENT AND PLAN: 1. Acute hypoxic respiratory failure due to acute on chronic diastolic congestive heart failure exacerbation and pulmonary hypertension. Apparently, patient was taken off her home Lasix by her culture media laboratory assistant 7 days prior to presentation because of her recurrent falls, which could have triggered her episode. Continue intravenous Lasix and follow up with basic metabolic panel tomorrow. She does have baseline chronic kidney disease stage III. Continue oxygen to maintain saturation more than 92%. Start patient on incentive spirometry. 2. History of coronary artery disease and essential hypertension. Continue home aspirin, amlodipine, isosorbide, metoprolol/ 3. History of chronic obstructive pulmonary disease. Continue albuterol ipratropium nebulization, Symbicort, Ditropan, and montelukast. 4. Epigastric burning with chronic gastroesophageal reflux disease. Continue patient on omeprazole twice daily, which is her home medication. She was previously treated for Helicobacter pylori gastritis twice in the past and was declared clear of infection. She should follow up with her regular outpatient provider. 5. Others. Continue duloxetine, pregabalin, and tramadol for chronic pain; hydroxychloroquine, which is her home medication; MiraLAX to avoid constipation. DISPOSITION: I plan to monitor patient inside the hospital since she still has oxygen requirement. I will order physical therapy as well as incentive spirometry to help decrease the oxygen needs. Depending on how patient does in the next 24 hours, we will decide disposition, either home with home physical therapy versus rehab. Plan of care discussed with the patient. All of her questions have been answered. I will also start her on CPAP at nighttime for history of obstructive sleep apnea, for which she uses CPAP and 2 L oxygen at nighttime. Plan of care discussed with her. cc: Sammy Ellis MD
[2019-03-06] MEDS: DULCOLAX PR SCH ×2 (17:27→21:20)
[2019-03-06] MEDS: SYMBICORT 160/4.5 MICROGM INHALER INH SCH (19:55)
[2019-03-06] MEDS: LASIX PO SCH (21:20)
[2019-03-06] MEDS: CYMBALTA PO SCH (21:20)
[2019-03-06] MEDS: ASPIRIN EC PO SCH (21:20)
[2019-03-06] MEDS: LYRICA PO SCH (21:21)
[2019-03-07] MEDS: SYNTHROID PO SCH (05:59)
[2019-03-07 07:03] LABS: BASO% 0.7 % (0.0-0.8); EOS% 2.3 % (0.0-10.0); HEMATOCRIT 36.1 % (37.0-47.0); HEMOGLOBIN 11.3 g/dL (12.0-16.0); IMM GRAN% 0.3 % (0.0-0.5); LYMPH# 2.13 X1000 (1.2-3.4); LYMPH% 21.4 % (20.5-51.1); MCH 28.8 PG (27-31); MCHC 31.3 g/dL (33-37); MCV 91.9 FL (81-99); MONO% 8.6 % (1.7-9.3); MPV 10.3 FL (7.4-10.4); NEUT# 6.63 X1000 (1.4-6.5); NEUT% 66.7 % (42.2-75.2); PLT 251 X1000 (130-400); RBC 3.93 XMIL (4.2-5.4); RDW 15.1 % (11.5-14.5); WBC 9.94 X1000 (4.8-10.8)
[2019-03-07 07:04] LABS: BASO# 0.07 X1000 (0.0-0.2); EOS# 0.23 X1000 (0.0-0.7); IMM GRAN# 0.03 X1000 (0.0-0.04); MONO# 0.85 X1000 (0.11-0.59)
[2019-03-07 07:11] LABS: CALCIUM 8.8 mg/dL (8.8-10.2); CREATININE 1.1 mg/dL (0.5-0.9); POTASSIUM 3.5 mmol/L (3.5-5.1)
[2019-03-07] MEDS: DUONEB (A & A) INH PRN (07:54)
[2019-03-07] MEDS: SPIRIVA INH SCH (07:54)
[2019-03-07] MEDS: MIRALAX PO SCH (08:21)
[2019-03-07] MEDS: TOPROL XL PO SCH (08:22)
[2019-03-07] MEDS: PLAQUENIL PO SCH ×2 (08:22→20:14)
[2019-03-07] MEDS: LASIX PO SCH ×2 (08:22→20:14)
[2019-03-07] MEDS: PREDNISONE PO SCH (08:22)
[2019-03-07] MEDS: PRILOSEC PO SCH ×2 (08:22→20:14)
[2019-03-07] MEDS: NORVASC PO SCH (08:22)
[2019-03-07] MEDS: KLOR-CON POWDER PACKET PO SCH (08:22)
[2019-03-07] MEDS: SINGULAIR PO SCH (08:22)
[2019-03-07] MEDS: IMDUR PO SCH (08:22)
[2019-03-07] MEDS: DULCOLAX PR SCH ×2 (08:23→20:13)
--- NOTE | 2019-03-07 09:17 | ECHO REPORT ---
ORDER DATE: 03/05/2019 MEASUREMENTS: Septal thickness 1.2, left ventricular internal diameter in diastole 5.0, aortic root 3.5. SUMMARY: 1. Very difficult study for interpretation due to very limited acoustic window quality. Intravenous echo contrast agent, Optison, was utilized to enhance endocardial definition. 2. Aortic valve is not well imaged, but appears to open adequately on 2-dimensional images. Peak gradient across the aortic valve is 11 mmHg. There is mild aortic regurgitation. Mitral and tricuspid valves are without gross structural abnormality, while pulmonic valve is not well visualized. There is trace mitral regurgitation. The aortic root is normal in size. 3. Normal left ventricular chamber size with mild concentric left ventricular hypertrophy suggested. Estimated left ventricular ejection fraction appears to be at least 60%. No regional wall motion abnormalities are evident. Doppler suggests grade 1 left ventricular diastolic dysfunction. Left atrium, right atrium, and right ventricle are grossly normal in size with grossly preserved right ventricular systolic function. 4. No pericardial effusion. 5. Appearance of inferior vena cava suggests normal central venous pressure. cc: MD Guadalupe Champion CRNP
--- NOTE | 2019-03-07 12:52 | PROGRESS NOTE ---
DATE: 03/07/2019 SUBJECTIVE: The patient notes that she had a bad night. States she still currently feels short of breath and feels fatigued. Notes that she is nervous about going home. OBJECTIVE: Temperature 98, pulse 71, respiratory rate 18, BP 137/61. General: Patient is awake. She is lying in the bed. She currently is in no respiratory distress. She did use CPAP last night, has BiPAP at home. HEENT: Normocephalic. Neck: Supple. Cardiovascular: Regular rate. Chest: Clear crackles, decreased but equal breath sounds. Abdomen: Soft. Nondistended. Obese. Extremities: Moves all extremities. No edema. Neurologic: No focal changes. She is awake, alert, oriented. ASSESSMENT: 1. Obstructive sleep apnea. 2. Chronic obstructive pulmonary disease. 3. Hypoxic respiratory failure. Patient has a history of requiring oxygen at home, but has been off of it for the last couple years. 4. Chronic reflux which is likely creating some of her epigastric and chest discomfort. PLAN: Patient currently is still on oxygen. We will discontinue her oxygen at this point and see if she is going to require it at home. We will attempt to get her out of bed and ambulate and we will follow. Hopefully home later this evening or tomorrow. cc: Sebastián Garcia MD MTDD
[2019-03-07] MEDS: SYMBICORT 160/4.5 MICROGM INHALER INH SCH (19:54)
[2019-03-07] MEDS: CYMBALTA PO SCH (20:13)
[2019-03-07] MEDS: ASPIRIN EC PO SCH (20:13)
[2019-03-07] MEDS: LYRICA PO SCH (20:14)
[2019-03-08] MEDS: SYNTHROID PO SCH (06:29)
[2019-03-08 07:30] LABS: BASO# 0.06 X1000 (0.0-0.2); BASO% 0.7 % (0.0-0.8); EOS# 0.23 X1000 (0.0-0.7); EOS% 2.7 % (0.0-10.0); HEMOGLOBIN 11.3 g/dL (12.0-16.0); IMM GRAN# 0.02 X1000 (0.0-0.04); IMM GRAN% 0.2 % (0.0-0.5); LYMPH# 2.21 X1000 (1.2-3.4); LYMPH% 25.8 % (20.5-51.1); MCHC 31.4 g/dL (33-37); MCV 92.5 FL (81-99); MONO# 0.74 X1000 (0.11-0.59); MONO% 8.6 % (1.7-9.3); MPV 10.3 FL (7.4-10.4); PLT 229 X1000 (130-400); RBC 3.89 XMIL (4.2-5.4); RDW 15.1 % (11.5-14.5); WBC 8.56 X1000 (4.8-10.8)
[2019-03-08] MEDS: SPIRIVA INH SCH (07:33)
[2019-03-08] MEDS: DUONEB (A & A) INH PRN ×4 (07:33→19:45)
[2019-03-08 07:43] LABS: CREATININE 1.3 mg/dL (0.5-0.9); POTASSIUM 4.1 mmol/L (3.5-5.1)
[2019-03-08] MEDS: SINGULAIR PO SCH (09:11)
[2019-03-08] MEDS: TOPROL XL PO SCH (09:11)
[2019-03-08] MEDS: PREDNISONE PO SCH (09:11)
[2019-03-08] MEDS: NORVASC PO SCH (09:12)
[2019-03-08] MEDS: MIRALAX PO SCH (09:12)
[2019-03-08] MEDS: PLAQUENIL PO SCH ×2 (09:12→20:40)
[2019-03-08] MEDS: IMDUR PO SCH (09:12)
[2019-03-08] MEDS: PRILOSEC PO SCH ×2 (09:12→20:39)
[2019-03-08] MEDS: DULCOLAX PR SCH ×2 (09:12→20:40)
[2019-03-08] MEDS: LASIX PO SCH ×2 (09:12→20:40)
[2019-03-08] MEDS: KLOR-CON POWDER PACKET PO SCH (09:12)
--- NOTE | 2019-03-08 19:42 | PROGRESS NOTE ---
DATE: 03/08/2019 SUBJECTIVE: Breathing has overall improved. Up and ambulating. I actually examined her right after. She had done a decent amount of ambulating with a rolling walker, and her breathing seemed regular and without major distress. OBJECTIVE: Vital Signs: Blood pressure 122/58, heart rate 67 respiratory rate 20, temperature 98 degrees, 94% on room air. Cardiovascular: Regular rate and rhythm. Pulmonary: No rales or rhonchi. GI: Soft, nontender, nondistended. Bowel sounds are positive. LABORATORY DATA: White count 8, hemoglobin and hematocrit 11 and 36, platelets 229. Creatinine 1.3. PROBLEM LIST: 1. Hypoxic and hypercapnic respiratory failure. She is doing better. Current treatment continued. She is on low dose steroids, antibiotics. 2. Chest tightness, wheezing, unclear etiology. She had a stress test back in October that was really unremarkable. Her echocardiogram this admission really looks stable. I am going to kind of observe her and see how she does. DISPOSITION: Anticipate discharge, hopefully tomorrow. She has progressed well with physical therapy, and we have her home oxygen worked out for her. cc: MD Annetta Wise CRNP
[2019-03-08] MEDS: ASPIRIN EC PO SCH (20:39)
[2019-03-08] MEDS: LYRICA PO SCH (20:39)
[2019-03-08] MEDS: CYMBALTA PO SCH (20:40)
[2019-03-08] MEDS: SYMBICORT 160/4.5 MICROGM INHALER INH SCH (21:03)
[2019-03-09] MEDS: SYNTHROID PO SCH (06:09)
[2019-03-09] MEDS: SPIRIVA INH SCH (07:57)
[2019-03-09] MEDS: NORVASC PO SCH (09:09)
[2019-03-09] MEDS: IMDUR PO SCH (09:09)
[2019-03-09] MEDS: PREDNISONE PO SCH (09:09)
[2019-03-09] MEDS: PLAQUENIL PO SCH (09:09)
[2019-03-09] MEDS: LASIX PO SCH (09:09)
[2019-03-09] MEDS: SINGULAIR PO SCH (09:09)
[2019-03-09] MEDS: TOPROL XL PO SCH (09:09)
[2019-03-09] MEDS: MIRALAX PO SCH (09:09)
[2019-03-09] MEDS: PRILOSEC PO SCH (09:09)
[2019-03-09] MEDS: DULCOLAX PR SCH ×2 (09:10→15:47)
[2019-03-09] MEDS: KLOR-CON POWDER PACKET PO SCH (09:13)
--- NOTE | 2019-03-09 09:30 | Diag Imaging Result Doc PS360 ---
EXAM: CT THORAX W/O CONTRAST INDICATION: pneumonia TECHNIQUE: This exam was performed using automated exposure control, adjustment of mA or kV according to patient size, and/or use of iterative reconstruction technique. COMPARISON: 11/11/2018 FINDINGS: There are linear densities at the right lower lobe peripherally near the base and in the right middle lobe suggesting mild subsegmental atelectasis. There is a 7 mm noncalcified nodule that is pleural-based at the periphery of the left lower lobe. This is stable as far back as the earliest available prior study dated 01/24/2018. It is nonspecific but certainly may represent a noncalcified granuloma. There are a couple of smaller nodules in the right lower lobe that are also stable. The lungs are grossly clear, otherwise. There is no pleural fluid collection and no pneumothorax. There is no significant mediastinal or hilar lymphadenopathy. There is no cardiomegaly. Limited views of the upper abdomen are essentially unremarkable. IMPRESSION: 1.Mild subsegmental atelectasis in the right middle lobe and right lower lobe near the lung base. 2.Stable subcentimeter lung nodules involving both lower lobes. 3.No definite acute pathology by CT, otherwise. Electronically signed by Sagar Hunter 03/09/2019 9:27 AM
[2019-03-09 16:24] VITALS: BP 118/83
--- NOTE | 2019-03-10 06:36 | DISCHARGE SUMMARY ---
ADMISSION DATE: 03/04/2019 DISCHARGE DATE: 03/09/2019 DISCHARGE DIAGNOSES: 1. Acute respiratory failure secondary to pulmonary edema. 2. Accelerated hypertension. 3. History of chronic obstructive pulmonary disease. CONSULTATIONS: None. PROCEDURES: None. HISTORY: Briefly, this is a 73-year-old female with a CHF, COPD history, and CAD history. She has had elevations in her BNP, some intermittent chest discomfort. Sats were low 85 to 80 percent. She is supposed to be on home oxygen, but has not been on it currently. She had been off her Lasix. Her last echocardiogram showed pulmonary hypertension. She was placed on diuretics. She overall improved. The COPD was not felt to be exacerbated, so she had not been placed on increased enzymes. Her echocardiogram showed no wall motion abnormality with EF of 60% with some grade 1 diastolic dysfunction so was felt to have diastolic dysfunction. She was treated with diuretics and improved. I did evaluate her for home oxygen which we did. She is not placed on any antibiotics because there is no clear infection. No white count. No fever. She had some recurrent falls. She was continued to be monitored. She did qualify for oxygen. I did pursue a chest CT just because she had this nebulous chest pain diagnosis, and that really was unremarkable. No pneumonia just some atelectasis. She was full in her abdomen, but was likely related to constipation. In any case, patient was felt stable for discharge. Really, the only major change I did was Lasix which I am not sure. I guess it had been discontinued because of kidney issues, but I have put her back on 20 daily, and we will see how she does. ADDITIONAL DISCHARGE MEDICATIONS: 1. Aspirin 81 daily. 2. Cymbalta 60 daily. 3. Symbicort 10.2 at bedtime. 4. Synthroid 200 daily. 5. Imdur 30 daily. 6. Klor-Con 20 daily. 7. Nitroglycerin. 8. Plaquenil 200 b.i.d. 9. Prilosec 20 b.i.d. 10. Singulair 10 daily. 11. Spiriva daily. 12. Toprol-XL 50 daily. 13. Vitamin B12 1000 mcg daily. 14. Ultram p.r.n. 15. Vitamin D3 2000 units daily. 16. Lasix 20 daily. 17. Prednisone taper 30 for 3 days, 20 for 3 days. FOLLOW UP: PCP and we will continue to monitor closely. She sees Dr. Chadwick and she is due for a left heart catheterization on 03/17 apparently, but we will see how she does. We will continue to follow. PRIMARY CARE PHYSICIAN: BEVERLY García TIME SPENT: 32 minutes. cc: MD Dr. Netta Wise
== END 2019-03-09 17:16 | disposition home health service (06) | DRG 291 ==
LOC: ED 15:16 → SUATTDRO 18:48 → 3S 18:48 → 3N 03-05 13:38
PROVIDERS: ATTEND Internal Medicine
CPT/HCPCS: 71010; 71020; 71045; 71046; 71250; 80048; 80053; 80076; 81001; 82550; 82948; 83690; 83880; 84439; 84443; 84484; 85025; 85610; 85730; 93005; 93306; 94640; 94660; 94761; 94799; 96374; 96375; 97163; 97530; 99285; A9270; C8929; J1940; J2405; J2930; J7506; J7512; Q9957; XXXXX

== ENCOUNTER 2019-10-22 16:54 | Inpatient (IN) ==
[2019-10-22] MEDS ORDERED: LASIX IV ONE (17:23)
--- NOTE | 2019-10-22 18:17 | Diag Imaging Result Doc PS360 ---
EXAM: CHEST-PORTABLE 10/22/2019 HISTORY: SOB TECHNIQUE: AP portable at 1755 COMMENT: There is mild cardiomegaly and increased pulmonary vascularity. There is increased interstitial opacity in the lung bases. These findings were also present on 07/25/2019. IMPRESSION: Chronic or recurrent pulmonary edema versus fibrosis. Electronically signed by Faisal Churchill 10/22/2019 6:14 PM
--- NOTE | 2019-10-22 18:30 | PROVIDER DOCUMENTATION ---
This chart was entered by Cecilia Pena Scribe, acting as scribe for Anderson Nelson MD. HPI-Respiratory General - General Source: patient, EMS ([facility]) - History of Present Illness-Resp Quality of Pain: reports: fullness Severity in ED: reports: moderate Onset/Duration: reports: 1 week ago Timing: reports: still present, getting worse Cough Quality/Degree: reports: productive cough (clear sputum) Episode Frequency: chronic episodes Current Respiratory Medication Therapy: Initiated see nurses note Modifying Factors: improves with: oxygen, sitting upright. worse with: exertion Associated Symptoms: reports: cough, shortness of breath, other (weight gain) Similar Symptoms Previously?: Yes (hx of copd) Recently seen or treated by another doctor?: Yes (urgent care ) <Anderson Nelson - Last Filed: 10/22/19 18:44> <Rom Minaya - Last Filed: 10/22/19 21:13> - General Chief Complaint: Shortness of Breath Stated Complaint: SOB Time Seen by Provider: 10/22/19 17:18 Allergies/Adverse Reactions: Patient Allergies Allergy/AdvReac Type Severity Reaction Status Date / Time amoxicillin Allergy SHORTNESS Verified 07/25/19 13:09 OF BREATH clarithromycin [From Biaxin] Allergy Unknown Verified 07/25/19 13:09 clavulanic acid Allergy SHORTNESS Verified 07/25/19 13:09 [From Augmentin] OF BREATH levofloxacin [From Levaquin] Allergy Unknown Verified 07/25/19 13:09 NSAIDS (Non-Steroidal Allergy Unknown Verified 07/25/19 13:09 Anti-Inflamma Penicillins Allergy Unknown Verified 07/25/19 13:09 pork derived (porcine) Allergy Unknown Verified 07/25/19 13:09 shellfish derived Allergy Unknown Verified 07/25/19 13:09 spironolactone Allergy Unknown Verified 07/25/19 13:09 [From Aldactone] Home Medications: Home Medication List Medication Instructions Recorded Confirmed Last Taken Type Budesonide/Formoterol Fumarate 10.2 gm IH QHS 11/26/17 07/25/19 1 Day Ago History [Symbicort 160-4.5 Mcg Inhaler] ~07/24/19 Duloxetine [Cymbalta] 60 mg PO QHS 11/26/17 07/25/19 07/25/19 History Hydroxychloroquine Sulfate 200 mg PO QHS 11/26/17 07/25/19 1 Day Ago History [Plaquenil] ~07/24/19 Isosorbide Mononitrate E.r. [Imdur] 30 mg PO DAILY 11/26/17 07/25/19 07/25/19 History Levothyroxine Sodium [Synthroid] 175 microgm PO QHS 11/26/17 07/25/19 1 Day Ago History ~07/24/19 Montelukast Sodium [Singulair] 10 mg PO QAM 11/26/17 07/25/19 07/25/19 History Potassium Chloride [Klor-Con] 20 meq PO QAM 11/26/17 07/25/19 07/25/19 History Tramadol [Ultram] 50 mg PO Q8HR PRN #20 tab 12/06/17 07/25/19 1 Month Ago Rx ~06/24/19 Nitroglycerin 0.4 mg SL PRN PRN 03/30/18 07/25/19 3 Months Ago History ~04/24/19 Furosemide [Lasix] 40 mg PO DAILY 04/01/19 07/25/19 07/25/19 History Losartan Potassium 100 mg PO DAILY 04/01/19 07/25/19 07/25/19 History Doxycycline [Vibramycin] 50 mg PO DAILY 07/25/19 07/25/19 07/25/19 History Prednisone 5 mg PO BID 07/25/19 07/25/19 07/25/19 History - History of Present Illness-Resp Nature of Presenting Problem: 74 yowf presents to the ed via ems from urgent care in [place]. pt sts she went to urgent care due to fluid retention, productive cough, wheeze, sob and weight gain 8lbs in 1 week. pt has hx of chf and sts has been taking all medications as prescribed. pt on exam is in no obvious distress and nontoxic in appearance (Anderson Nelson) Review of Systems - Adult - REVIEW OF SYSTEMS - ADULT Constitutional: reports: weight gain (8lbs 1 week). denies: chills, fever Eyes: reports: no symptoms reported Ears, Nose, Mouth & Throat: reports: no symptoms reported Cardiovascular: reports: see HPI, edema. denies: palpitations, syncope Respiratory: reports: see HPI, cough, dyspnea on exertion, shortness of breath, wheezing Gastrointestinal: denies: abdominal pain, diarrhea, nausea, vomiting Genitourinary: reports: no symptoms reported Musculoskeletal: denies: back pain, neck pain Integumentary: reports: no symptoms reported Neurological: reports: no symptoms reported Psychiatric: reports: no symptoms reported Endocrine: reports: no symptoms reported Hematologic/Lymphatic: reports: no symptoms reported Allergic/Immunologic: reports: no symptoms reported All Other Systems: Reviewed and Negative <Anderson Nelson - Last Filed: 10/22/19 18:44> Past History - Adult - PAST MEDICAL HISTORY-ADULT Review of Records: reports: Old Records Reviewed, Nursing Assessment Review, Medications Reviewed, Social history reviewed & non-contributory. Major Childhood Illnesses: reports: denies history Cardiovascular: reports: CHF, HTN, [place] Respiratory: reports: COPD, sleep apnea Gastrointestinal: reports: GERD Obstetrical/Gynecological: reports: denies history Genitourinary: reports: other (only has 1 kidney) Musculoskeletal: reports: chronic pain, fibromyalgia Neurological: reports: CVA, TIA Psychiatric: reports: depression Endocrine/Immune: reports: lupus, thyroid disorder Other Conditions: reports: denies history, other (fibromylegia) - PRIOR SURGERIES/PROCEDURES Surgical/Procedure History: reports: reviewed, not pertinent, cholecystectomy, hysterectomy, - IMMUNIZATION STATUS Childhood Immunizations: See Nurse Assessment Flu Vaccine: See Nurse Assessment - FAMILY HISTORY Family History: reviewed, not pertinent - SOCIAL HISTORY Smoking: quit greater than 1 year Substance Use: denies Living Situation: family <Anderson Nelson - Last Filed: 10/22/19 18:44> Physical Exam-General - PHYSICAL EXAM-ADULT Initial Vital Signs Reviewed: Yes - CONSTITUTIONAL General Appearance: appears well, alert, mild distress, obese - EYES Eyes: PERRL/EOMI, pink conjunctivae - HEAD, EARS, NOSE, MOUTH & THROAT HENMT: moist mucous membranes - NECK Neck: non-tender, full range of motion, supple, normal inspection - RESPIRATORY Respiratory: chest non-tender, lungs clear, respiratory distress (mild) - CARDIOVASCULAR Cardiovascular: normal peripheral pulses, regular rate, rhythm - CHEST (BREASTS) Chest/Breast: deferred - GASTROINTESTINAL (ABDOMEN) Abdominal Exam: normal bowel sounds, non tender, soft - GENITOURINARY Female Genitalia/Pelvic Exam: deferred Rectal Exam: deferred Hemoccult Exam: deferred - LYMPHATIC Lymphatic: no adenopathy - MUSCULOSKELETAL Back Exam: no CVA tenderness, no vertebral tenderness Extremity: normal range of motion, non-tender, swelling (BLE edema 2+) - SKIN Integumentary: normal color, normal turgor, warm/dry - NEUROLOGIC Neurologic: grossly normal - PSYCHIATRIC Psych/Mental Status: normal mood/affect, normal thought content, normal thought process, oriented x 3 <Anderson Nelson - Last Filed: 10/22/19 18:44> Progress - XRAY 1 XRAY: Bilateral XRAY Study: Chest Impression: See EMR Report - CHANGE OF SHIFT REPORT (ED Provider) 1 Report Given and Care Transferred to:: DR Dangelo MINAYA Time of Transfer: 19:00 <Anderson Nelson - Last Filed: 10/22/19 18:44> - PLAN OF CARE/RESULTS Result Diagrams: 10/22/19 18:53 10/22/19 18:53 - REASSESSMENT Reassessment #1 Time Reassessed: 20:30 Status: unchanged (Pt has conversation dyspnea and saturating 95% on 2L O2. will admit for observation. Hospitalist paged.) - CONSULTS/PCP/HOSPITALIST Notification #1 *Consult/PCP/Hospitalist*: d/w Dr Ellis Time Discussed: 20:50 Consult Disposition: Admit <Rom Minaya - Last Filed: 10/22/19 21:13> - PLAN OF CARE/RESULTS Progress/Plan/Lab Results: Vital Signs - 8 hr 10/22/19 17:03 Temperature 98.5 F Pulse Rate 69 Respiratory Rate 18 Blood Pressure 151/75 O2 Sat by Pulse Oximetry 99 10/22/19 20:00 Influenza Screen - Final Nasopharyngeal Laboratory Results - last 24 hr 10/22/19 10/22/19 10/22/19 18:53 18:53 18:53 WBC 8.70 RBC 3.48 L Hgb 10.5 L Hct 33.8 L MCV 97.1 MCH 30.2 MCHC 31.1 L RDW Std Deviation 14.2 Plt Count 203 MPV 10.4 Immature Gran % (Auto) 0.2 Neut % (Auto) 76.6 H Lymph % (Auto) 15.2 L Morrill % (Auto) 6.1 Eos % (Auto) 1.3 Baso % (Auto) 0.6 Immature Gran # (Auto) 0.02 Neut # (Auto) 6.67 H Lymph # (Auto) 1.32 Morrill # (Auto) 0.53 Eos # (Auto) 0.11 Baso # (Auto) 0.05 PT INR PTT (Actin FS) Sodium 146 H Potassium 4.3 Chloride 105 Carbon Dioxide 29 Anion Gap 12 BUN 17 Creatinine 1.2 H Estimated GFR/1.73 m2 44 BUN/Creatinine Ratio 14 Glucose 104 Calculated Osmolality 292 Calcium 9.0 Magnesium Total Bilirubin AST ALT Alkaline Phosphatase Creatine Kinase Troponin T High Sens Hnh-H-Zzmhcrzpvjo Pept Total Protein Albumin Globulin Albumin/Globulin Ratio Plasma Lactate Free T4 1.39 Urine Source Urine Color Urine Turbidity Urine pH Ur Specific [place] Urine Protein Ur Glucose (Stick) Ur Ketones (Stick) Urine Blood Urine Nitrite Urine Bilirubin Urobilinogen Dipstick Urine Leukocytes Urine WBC (Auto) Urine RBC (Auto) U Epithel Cells (Auto) Urine Bacteria (Auto) 10/22/19 10/22/19 10/22/19 18:53 18:53 18:53 WBC RBC Hgb Hct MCV MCH MCHC RDW Std Deviation Plt Count MPV Immature Gran % (Auto) Neut % (Auto) Lymph % (Auto) Mor[place] % (Auto) Eos % (Auto) Baso % (Auto) Immature Gran # (Auto) Neut # (Auto) Lymph # (Auto) [place] # (Auto) Eos # (Auto) Baso # (Auto) PT INR PTT (Actin FS) Sodium 146 H Potassium 4.7 Chloride 106 Carbon Dioxide 29 Anion Gap 11 BUN 18 Creatinine 1.2 H Estimated GFR/1.73 m2 44 BUN/Creatinine Ratio 15 Glucose 106 H Calculated Osmolality 293 Calcium 9.0 Magnesium 1.6 Total Bilirubin 0.33 AST 22 ALT 16 Alkaline Phosphatase 105 H Creatine Kinase 72 Troponin T High Sens 17 Zeu-Z-Rjnnhatwsnb Pept 596 H Total Protein 6.3 Albumin 3.6 Globulin 2.7 Albumin/Globulin Ratio 1.3 Plasma Lactate Free T4 Urine Source Urine Color Urine Turbidity Urine pH Ur Specific [place] Urine Protein Ur Glucose (Stick) Ur Ketones (Stick) Urine Blood Urine Nitrite Urine Bilirubin Urobilinogen Dipstick Urine Leukocytes Urine WBC (Auto) Urine RBC (Auto) U Epithel Cells (Auto) Urine Bacteria (Auto) 10/22/19 10/22/19 10/22/19 18:53 18:53 20:40 WBC RBC Hgb Hct MCV MCH MCHC RDW Std Deviation Plt Count MPV Immature Gran % (Auto) Neut % (Auto) Lymph % (Auto) [place] % (Auto) Eos % (Auto) Baso % (Auto) Immature Gran # (Auto) Neut # (Auto) Lymph # (Auto) [place] # (Auto) Eos # (Auto) Baso # (Auto) PT 13.2 INR 0.99 PTT (Actin FS) 28.7 Sodium Potassium Chloride Carbon Dioxide Anion Gap BUN Creatinine Estimated GFR/1.73 m2 BUN/Creatinine Ratio Glucose Calculated Osmolality Calcium Magnesium Total Bilirubin AST ALT Alkaline Phosphatase Creatine Kinase Troponin T High Sens Zhn-C-Ljrpajvhrbl Pept Total Protein Albumin Globulin Albumin/Globulin Ratio Plasma Lactate 0.8 Free T4 Urine Source CLEAN CATCH Urine Color STRAW Urine Turbidity CLEAR Urine pH 6.0 Ur Specific [place] 1.010 Urine Protein NEGATIVE Ur Glucose (Stick) NEGATIVE Ur Ketones (Stick) NEGATIVE Urine Blood NEGATIVE Urine Nitrite NEGATIVE Urine Bilirubin NEGATIVE Urobilinogen Dipstick NORMAL Urine Leukocytes SMALL A Urine WBC (Auto) 10-20 A Urine RBC (Auto) <10 U Epithel Cells (Auto) <10 Urine Bacteria (Auto) 3+ Orders Category Date Time Status Cardiac Monitoring DIRECTED Care 10/22/19 17:19 Active Cardiac Monitoring DIRECTED Care 10/22/19 18:28 Active IV Insertion ORDERED Care 10/22/19 18:28 Completed Notify MD of + Sepsis Screen NOW Care 10/22/19 18:28 Active Notify Physician As Ordered Care 10/22/19 18:28 Active Saline Loc NOW Care 10/22/19 17:19 Active CHEST-PORTABLE [RAD] Stat Exams 10/22/19 17:22 Completed BASIC METABOLIC PANEL [CHEM] Stat Lab 10/22/19 18:53 Completed BLOOD CULTURE [BLDCUL] Stat Lab 10/22/19 20:00 Results CBC WITH ELECTRONIC DIFF [HEME] Stat Lab 10/22/19 18:53 Completed CK PROFILE [SP CHEM] Stat Lab 10/22/19 18:53 Completed COMPREHENSIVE METABOLIC PANEL [CHEM] Stat Lab 10/22/19 18:53 Completed FREE T4 Stat Lab 10/22/19 18:53 Completed INFLUENZA SCREEN A/B Stat Lab 10/22/19 20:00 Completed LACTATE, PLASMA [CHEM] Q3H Lab 02/07/20 18:53 Completed LACTATE, PLASMA [CHEM] Q3H Lab 10/22/19 21:30 Uncollected LACTATE, PLASMA [CHEM] Q3H Lab 10/23/19 00:30 Uncollected MAGNESIUM [CHEM] Stat Lab 10/22/19 18:53 Completed PRO B-NATRIURETIC PEPTIDE Stat Lab 10/22/19 18:53 Completed PROTIME WITH INR [COAG] Stat Lab 10/22/19 18:53 Completed PTT [COAG] Stat Lab 10/22/19 18:53 Completed TROPONIN T HIGH SENSITIVITY Stat Lab 10/22/19 18:53 Completed URINALYSIS W/POSS RFLX CULT [URINALYSIS] Stat Lab 10/22/19 20:40 Completed URINE CULTURE [RM] Routine Lab 10/22/19 20:40 Received Furosemide [Lasix] Med 10/22/19 17:23 Discontinued 40 mg IV NOW ONE Oxygen Device Stat Oth 10/22/19 18:28 Completed EKG [EKG] Stat Ther 10/22/19 17:19 Ordered Departure - Critical Care Note This patient required my direct & personal management of CC.: No <Anderson Nelson - Last Filed: 10/22/19 18:44> - Departure Date of Disposition Decision: 10/22/19 Time of Disposition Decision: 20:42 Certified Medical Emergency: Emergent <Rom Minaya - Last Filed: 10/22/19 21:13> - Departure DIAGNOSIS: Pulmonary edema, Dyspnea Disposition: ADMITTED INPATIENT 09 Condition: Stable Referrals and Follow-Ups: Vik Delong [Primary Care Provider] - Attestation - Physician/ KAUSHIK Attestation Patient care was provided by Advanced Practice Provider:: No The physician spent face to face time with patient:: Yes Advanced Practice Provider documentation review:: Supervising physician onsite and consulted in the evaluation and care of this patient. The physician did have a face to face encounter with the patient. <Anderson Nleson - Last Filed: 10/22/19 18:44> This chart was documented by the indicated scribe, (Cecilia Pena Scribe) and accurately reflects the services I performed and decisions made by me, Anderson Nelson MD, as attested by the provider's signature.
[2019-10-22 19:24] LABS: BASO# 0.05 X1000 (0.0-0.2); BASO% 0.6 % (0.0-0.8); EOS# 0.11 X1000 (0.0-0.7); EOS% 1.3 % (0.0-10.0); HEMATOCRIT 33.8 % (37.0-47.0); HEMOGLOBIN 10.5 g/dL (12.0-16.0); IMM GRAN# 0.02 X1000 (0.0-0.04); IMM GRAN% 0.2 % (0.0-0.5); LYMPH# 1.32 X1000 (1.2-3.4); LYMPH% 15.2 % (20.5-51.1); MCH 30.2 PG (27-31); MCHC 31.1 g/dL (33-37); MCV 97.1 FL (81-99); MONO# 0.53 X1000 (0.11-0.59); MONO% 6.1 % (1.7-9.3); MPV 10.4 FL (7.4-10.4); NEUT# 6.67 X1000 (1.4-6.5); NEUT% 76.6 % (42.2-75.2); PLT 203 X1000 (130-400); RBC 3.48 XMIL (4.2-5.4); RDW 14.2 % (11.5-14.5)
[2019-10-22 19:28] LABS: CREATININE 1.2 mg/dL (0.5-0.9); INR 0.99; POTASSIUM 4.3 mmol/L (3.5-5.1); PROTIME 13.2 Seconds (11.0-16.0)
[2019-10-22 19:33] LABS: ALB/GLOB RATIO 1.3; ALBUMIN 3.6 g/dL (3.5-5.0); CREATININE 1.2 mg/dL (0.5-0.9); MAGNESIUM 1.6 mg/dL (1.5-2.7); POTASSIUM 4.7 mmol/L (3.5-5.1); TOTAL BILIRUBIN 0.33 mg/dL (0.20-1.00); TOTAL PROTEIN 6.3 g/dL (6.3-8.3)
[2019-10-22 19:42] LABS: PTT 28.7 Seconds (22.3-41.8)
[2019-10-22 20:48] LABS: URINE SOURCE CLEAN CATCH
[2019-10-22 20:50] LABS: BILIRUBIN URINE NEGATIVE (NEGATIVE); BLOOD URINE NEGATIVE (NEGATIVE); COLOR STRAW; GLUCOSE URINE NEGATIVE (NEGATIVE); KETONE URINE NEGATIVE (NEGATIVE); LEUKOCYTES URINE SMALL (NEGATIVE); NITRITE URINE NEGATIVE (NEGATIVE); PROTEIN URINE NEGATIVE (NEGATIVE); TURBIDITY URINE CLEAR (CLEAR); UR EPITHELIAL CELLS <10 /HPF (<10); URINE BACTERIA 3+ /HPF; URINE RBC <10 /HPF (<10); UROBILINOGEN URINE NORMAL (NORMAL)
[2019-10-22] MEDS ORDERED: ZOFRAN IV PRN (23:04)
[2019-10-22] MEDS ORDERED: ASPIRIN EC PO ONE (23:05)
[2019-10-23] MEDS ORDERED: NITROGLYCERIN SL PRN (00:08)
[2019-10-23] MEDS ORDERED: ULTRAM PO PRN (00:08)
[2019-10-23] MEDS: MIRALAX PO SCH ×3 (01:32→20:34)
[2019-10-23] MEDS: DUONEB (A & A) INH SCH ×4 (03:30→21:36)
--- NOTE | 2019-10-23 03:54 | EKG Report ---
Test Performed on : 10/22/2019 10:36:15 PM Test Reason : CHF Exacerbation Blood Pressure : / mmHG Vent. Rate : 065 BPM Atrial Rate : 065 BPM P-R Int : 142 ms QRS Dur : 088 ms QT Int : 460 ms P-R-T Axes : 034 006 056 degrees QTc Int : 478 ms Normal sinus rhythm. Normal ECG When compared with ECG of 25-JUL-2019 12:42, No significant change was found Confirmed by Edson Lisa MD ([id number]) on 10/23/2019 8:42:13 AM
[2019-10-23] MEDS ORDERED: MELATONIN PO ONE (04:01)
--- NOTE | 2019-10-23 05:20 | Diag Imaging Result Doc PS360 ---
EXAM: ABDOMEN FLAT/UPRIGHT HISTORY: epigastric pain TECHNIQUE: Two views COMPARISON: 01/23/2018 FINDINGS: No free air beneath the diaphragm. No organomegaly. No bowel obstruction. There is a small amount stool throughout the colon. The gallbladder has been removed. Moderate scoliosis with severe degenerative spine changes. IMPRESSION: Mild constipation Electronically signed by Lukasz Barraza 10/23/2019 5:18 AM
[2019-10-23] MEDS: LASIX IV SCH ×2 (06:00→17:45)
[2019-10-23 06:29] LABS: BASO# 0.05 X1000 (0.0-0.2); BASO% 0.7 % (0.0-0.8); EOS% 2.8 % (0.0-10.0); HEMATOCRIT 31.4 % (37.0-47.0); HEMOGLOBIN 9.8 g/dL (12.0-16.0); IMM GRAN# 0.02 X1000 (0.0-0.04); IMM GRAN% 0.3 % (0.0-0.5); LYMPH# 1.81 X1000 (1.2-3.4); LYMPH% 25.1 % (20.5-51.1); MCH 30.2 PG (27-31); MCHC 31.2 g/dL (33-37); MCV 96.9 FL (81-99); MONO# 0.61 X1000 (0.11-0.59); MONO% 8.5 % (1.7-9.3); MPV 10.4 FL (7.4-10.4); NEUT# 4.52 X1000 (1.4-6.5); NEUT% 62.6 % (42.2-75.2); PLT 179 X1000 (130-400); RBC 3.24 XMIL (4.2-5.4); RDW 14.2 % (11.5-14.5); WBC 7.21 X1000 (4.8-10.8)
[2019-10-23] MEDS ORDERED: SYNTHROID PO SCH ×4 (07:00→21:00)
[2019-10-23 07:40] LABS: CREATININE 1.2 mg/dL (0.5-0.9); MAGNESIUM 1.4 mg/dL (1.5-2.7); POTASSIUM 3.9 mmol/L (3.5-5.1)
--- NOTE | 2019-10-23 08:17 | HISTORY AND PHYSICAL ---
ADDENDUM TO HISTORY AND PHYSICAL DICTATED BY CARDIAC CARE UNIT NURSE: I agree with most of the history and physical, and plan. In brief, ms Chadwick is a 74-year-old lady with a past medical history of chronic diastolic congestive heart failure, chronic constipation, hiatal hernia, coronary artery disease managed medically, grade 1 diastolic dysfunction, and COPD who comes in with chief complaint of shortness of breath which has been ongoing since the last 10 days. By the time I evaluated the patient, she was given intravenous Lasix and she had made almost 800 mL of urine. SUBJECTIVE: She is complaining of abdominal discomfort in the center of the epigastric region. She is also complaining of orthopnea and shortness of breath. PHYSICAL EXAMINATION: VITAL SIGNS: Temperature of 98.5 degrees, pulse 69, respiratory 18, blood pressure 150/75, saturating 99% room air. GENERAL: She is in mild distress because of shortness of breath. HEENT: Oral cavity is moist. LUNGS: She has decreased air entry with inspiratory crackles in the infrascapular region. CARDIOVASCULAR: S1, S2 normal. No murmur or gallop. ABDOMEN: Soft. Epigastric tenderness. Active bowel sounds. EXTREMITIES: Bilateral lower extremity edema. NEUROLOGIC: She is alert oriented x3. LABS: Suggestive of WBC of 8000, hemoglobin 10.5, platelet 203,000. She had sodium of 146, creatinine of 1.2. Her proBNP is 596. EKG had normal sinus rhythm. Chest x-ray had bilateral lung base opacities. ASSESSMENT AND PLAN: 1. Acute pulmonary edema and mild bilateral pleural effusion leading to shortness of breath due to acute congestive heart failure with preserved ejection fraction exacerbation. Though patient is hemodynamically stable, clinically, she does have difficulty completing sentences and orthopnea. I will start her on intravenous Lasix and follow up with BMP. 2. Epigastric discomfort, likely because of hiatal hernia and constipation. I will start her on stool softeners and antacid medication. 3. History of chronic obstructive pulmonary disease, not in any again acute exacerbation. I will give her inhaled bronchodilators. DISPOSITION: I will keep the patient on observation status with intravenous Lasix. Plan of care discussed with her. Her questions have been answered. She is in agreement. cc: Sammy Ellis MD
[2019-10-23] MEDS ORDERED: KLOR-CON POWDER PACKET PO SCH (09:00)
[2019-10-23] MEDS: POTASSIUM CHLORIDE 10% LIQUID PO SCH (10:45)
[2019-10-23] MEDS: SYNTHROID PO SCH (10:46)
[2019-10-23] MEDS: COZAAR PO SCH (10:47)
[2019-10-23] MEDS: SINGULAIR PO SCH (10:47)
[2019-10-23] MEDS: IMDUR PO SCH (10:47)
[2019-10-23] MEDS: COREG PO SCH ×2 (10:49→20:36)
[2019-10-23] MEDS: DULCOLAX PR SCH ×2 (10:51→20:36)
--- NOTE | 2019-10-23 11:12 | HISTORY AND PHYSICAL ---
PRIMARY CARE PROVIDER: Dr. Vik Delong. SOFTWARE BUILD ENGINEER: Dr. Chadwick at [facility]. CHIEF COMPLAINT: Shortness of breath. HISTORY OF PRESENT ILLNESS: Ms. Chadwick is a 74-year-old female who has a past medical history most pertinent for CHF, coronary artery disease, hypertension, COPD, CKD, TIAs and hypothyroidism. The patient states that for approximately 2 weeks now she has had increased swelling in her bilateral lower extremities. She states for approximately a week, she has been having some wheezing and she has noticed that she has had some exertional dyspnea. The patient states over the last few days that her breathing has continued to worsen. She is now short of breath at rest and she becomes very short of breath with exertion. She has been reporting some dizziness. She has been having chest pressure in the left center of her chest that has been intermittent over the past week or so. She reported that this initially came on when she became short of breath when she exerted herself and when she was rest, her breathing would improved. This would subside. She reports that since her breathing is worse over the last few days that she has been having constant chest pressure that just becomes worse at times. She has reported a nonproductive cough for the past few days. She has reported some chills and denied any body aches or known fever. The patient states she does not have a thermometer at home. She did report 1 episode of some nausea for which she did vomit 1 time a few days ago, but has not had any further episodes of this. She has been reporting some epigastric pain that has been ongoing for a few months now, though she states that this pain is constant, a crampy type pain that does become sharp at times. She states that Dr. Chery has recently told her that she has a hiatal hernia and that this may be the cause of some her pain. He has recently performed studies of an echocardiogram, abdominal ultrasound and she did just complete wearing a cardiac event monitor. She states she has not received these results of these tests from her physician yet. She did report that she has had EGD within the last year. She does report that the epigastric pain that she is experiencing at times does radiate to her right and left upper quadrants though is mainly in the epigastric and left upper quadrant area. She denies any hematemesis, hematochezia or melena. She does report chronic constipation. She denies any dysuria, urinary frequency or lower abdominal pain. The patient states she does have chronic low back pain though this has not worsened or changed recently. She denied any orthopnea, though has reported some paroxysmal nocturnal dyspnea. She does have sleep apnea. She wears CPAP at night. She also wears 2 L of oxygen at night as well. She denies any increased use of her oxygen though she did state she has had to increase the use of her nebulizer and nd inhaler at home. She also did state that on October 18, Dr. Delong did prescribe her Bumex as well 1 mg p.o. daily and she does take Lasix 40 mg p.o. daily. Other than this, she denied any recent medication changes. On evaluation in the ER, the patient's vital signs have been within normal limits. She was placed on nasal cannula 2 L for comfort given her reports of dyspnea. Remarkably, her laboratory results looked pretty unremarkable. Her CK and troponin have been within normal limits. She does have a creatinine of 1.2 with a GFR of 44, that she has some chronic kidney disease. This does appear to be at her baseline. Her proBNP was slightly elevated at 596. Though her chest x-ray did show chronic or recurrent pulmonary edema versus fibrosis. Chest x-ray of the abdomen did show constipation. We are awaiting the radiologist's impression of this. EKG showed normal sinus rhythm at a rate of 65 though clinically upon physical examination, the patient does appear to be slightly dyspneic at rest. She is not in any acute respiratory distress. She was able to easily speak in full sentences. Her dyspnea has become worse when she has been ambulating back and forth to the bathroom. She does have some slight JVD noted. She does have diminished lung sounds with crackles in bilateral bases and does have 2+ pitting edema noted in bilateral lower extremities. She has already been given an initial dose of Lasix 40 mg IV in the ER and has been having a good response to this with a total of 830 mL of urine output at present. We did give her a 325 mg aspirin as well given her chest pain. She has been placed inpatient admission for evaluation of CHF exacerbation. REVIEW OF SYSTEMS: A 14 point review of systems was conducted with the patient and all were negative except for pertinent positives mentioned in the above HPI. PAST MEDICAL HISTORY: 1. Congestive heart failure with last known ejection fraction of 60% in February 2019. 2. Hypertension. 3. History of coronary artery disease status post myocardial infarction for which she reports was treated medically. This occurred in 2014. 4. History of history of patent foramen ovale status post closure. 5. COPD on home oxygen per nasal cannula at 2 L at night. 6. Sleep apnea. The patient does wear CPAP at night. 7. Gastroesophageal reflux disease. 8. History of chronic kidney disease with an atrophic right kidney. 9. History of TIAs. The patient denies any residual deficits. 10. Depression. 11. Hypothyroidism. 12. Fibromyalgia. 13. Scoliosis. 14. Spinal stenosis. 15. Raynaud syndrome. 16. Sjogren's syndrome. 17. Osteoarthritis. 18. Lupus. PAST SURGICAL HISTORY: 1. Cholecystectomy. 2. Hysterectomy. 3. section. 4. PFO closure. 5. Sinus surgery. 6. Thyroidectomy. 7. Breast reduction. 8. Bunionectomy. 9. Back surgery. 10. Cataract surgery. SOCIAL HISTORY: The patient is retired. She is . She is a former smoker. She stated that she smoked a half a pack for approximately 40 years though quit smoking 13 years ago. There is no known history of past or present alcohol or illicit drug use. Her daughter was at bedside during my examination. ALLERGIES: Patient has allergies to tape though states she can use paper tape, NSAID, Augmentin, Levaquin, amoxicillin, Aldactone, pork, shellfish, arrow root, penicillin, Biaxin. FAMILY HISTORY: Positive for her mother having a history of lymphoma, hypertension, vulva cancer CVA and possibly Sjogren's syndrome. Her father had a history of pancreatic cancer. She reports that her sisters have all had surgeries for lipoma removal. HOME MEDICATIONS: 1. Aspirin 81 mg p.o. daily. 2. Bumex 1 mg p.o. daily. 3. Cymbalta 60 mg p.o. at bedtime. 4. Lasix 40 mg p.o. daily. 5. Imdur 30 mg p.o. daily. 6. Synthroid 175 mcg p.o. daily. 7. Losartan 100 mg p.o. daily. 8. Singulair 10 mg p.o. q.a.m. 9. Nitroglycerin 0.4 mg sublingual p.r.n. for chest pain. 10. Potassium chloride 20 mEq p.o. daily. 11. Spiriva inhaler inhaled as directed. 12. Coreg 25 mg p.o. b.i.d. DIAGNOSTIC DATA/LABORATORY RESULTS: White blood cell count is 8700, hemoglobin 10.5, hematocrit 33.8, platelet count 203,000. PT 13.2, INR 0.9, PTT is 28.7. Sodium 146, potassium 4.7, chloride 106, bicarb 29, BUN 18, creatinine 0.2 with a GFR of [*] glucose 106, calcium 9, magnesium 1.6. Liver function tests within normal limits. Alkaline phosphatase is slightly elevated at 105. CK 72, troponin T I sensitivity 17, proBNP is 596. Urine was obtained via clean catch, positive for small leukocyte and 10 to 20 white blood cells and 2+ bacteria. EKG showed normal sinus rhythm at a rate of 65 with a QTc of 478. Chest showed chronic recurrent pulmonary edema versus fibrosis. This is per Radiology. Flat and upright of the abdomen showed constipation though we are awaiting Radiologist's impression as well. PHYSICAL EXAMINATION: VITAL SIGNS: Temperature 98.5 degrees, heart rate 69, respirations 19, blood pressure is 153/58. Oxygen saturation is 96% on nasal cannula at 2 L. GENERAL: Mr. Chadwick is a very pleasant 74-year-old female, she is resting in the ER stretcher. She was in no acute distress. She was awake and alert and answered questions appropriately. HEENT: Head is atraumatic, normocephalic. Pupils are equal, round, reactive to light, were 3 mm bilaterally and brisk. Oral mucosa is moist. Oropharynx was clear. NECK: Supple. Trachea midline. She did have some very slight JVD noted upon examination. CARDIOVASCULAR: The patient has S1, S2 present. No murmurs, gallops, rubs appreciated with a regular rate and rhythm. PULMONARY: In upper lung jones anterior and posteriorly, she was clear to auscultation though she did have crackles and diminished lung sounds noted in bilateral bases. ABDOMEN: Soft. It does not appear to be overtly distended though the patient does have a protuberant abdomen noted. She reports some tenderness in the epigastric area and left upper quadrant though no rebound tenderness noted. Bowel sounds were present in all 4 quadrants, were slightly hyperactive. EXTREMITIES: No cyanosis noted. The patient did have 2+ pitting edema noted in bilateral lower extremities from approximately mid calf down, though pulse motor and sensory is intact in all extremities. Radial pulses were 2+ bilaterally. Pedal pulses were 1+ bilaterally. INTEGUMENTARY: Patient's skin is pink, warm, and dry. NEUROLOGICAL: The patient is alert and oriented to person, place, time, and situation. She is able to move all extremities. There are no focal neurological deficits noted. ASSESSMENT AND PLAN: 1. Congestive heart failure exacerbation. For this, we will continue with the series of cardiac enzymes. We will repeat an EKG in the morning. The patient did have an echocardiogram in March 2019 which showed an EF 60%. She also reports that she just recently had an echocardiogram performed at her physician's. They are open on Friday. We are going to try to request these records today. We will continue with her daily aspirin and regularly prescribed cardiac medication. We have placed her with a diuretic of Lasix 40 mg IV q.12 hours. We will do strict intake and output, daily weight, and we will closely monitor her response to this. We will repeat a BMP and magnesium in the morning as well. 2. Chronic obstructive pulmonary disease. We will continue with the patient's supplemental oxygen. We also placed orders for DuoNeb treatments. 3. Epigastric pain. The patient did state she has recently been having problems with and her primary care physician told her that he thought this was secondary to a hiatal hernia. We did perform a flat and upright abdomen tonight and this did show constipation and we are awaiting the radiologist's impression. She has also just recently had an abdominal ultrasound with her primary care provider. We are going to try obtain these records as well. We will continue her omeprazole. She does have p.r.n. pain medications as needed. She has not reported any recent nausea or vomiting. We will await results of flat and upright and try to obtain ultrasound results. Continue to follow. 4. Hypertension. We will continue her with the prescribed medicine of Morgan and Kelsi. 5. Chronic kidney disease with a history of atrophic right kidney. The patient's creatinine is 1.2 so this as this is her baseline. We will continue to monitor this closely. We will avoid nephrotoxic medications and renally dose medicines as necessary. We will do strict intake and output. 6. Hypothyroidism. We will continue her Synthroid. 7. Constipation. The patient states that she has had problems with chronic constipation for a while. We have placed orders for MiraLAX twice daily as well as Dulcolax 10 mg per rectum b.i.d. 8. Asymptomatic bacteriuria. We have placed a urine culture. We will await those results and continue to follow. The patient has been placed on the medical floor telemetry. She will have vital signs q.4 hours. We will do strict intake and output, daily weight, incentive spirometry. She will be on a healthy diet. Further orders and recommendations pending hospital course, diagnostic studies, and physician evaluation. Dictated by BEVERLY Lane for Sammy Ellis MD cc: Sammy Ellis MD
--- NOTE | 2019-10-23 14:51 | PROGRESS NOTE ---
DATE: 10/23/2019 I have seen and examined Ms. Chadwick today. Ms. Chadwick is a 74-year-old female who was admitted overnight, presented because of shortness of breath. I understand Ms. Chdawick actually went to an urgent care in [place] because of productive cough, wheezing, some shortness of breath associated with fluid retention. She referred to have gained about 18 pounds so 8 pounds in 1 week. Upon presenting to the emergency department, she underwent a chest x-ray which revealed chronic or recurrent pulmonary edema versus fibrosis. She had O2 saturation of 94% on presentation. This morning, she refers to be doing a lot better. She thinks the swelling in the lower extremities has improved. OBJECTIVELY: Ms. Chadwick is a 74-year-old female. She was in bed, no distress.HEENT: Mucosa is pink and moist. Anicteric. Acyanotic. Neck: Supple. Did not see any JVD. Chest: Air entry was bilaterally reduced. There are a few crackles in the posterior lung jones. Cardiovascular: Regular rate and rhythm. GI: Abdomen is soft. It is distended. Extremities: About 1+ pedal edema. CHARGING PLUG PLACER: Patient is awake, alert, and oriented. An EKG which was done early this morning shows a normal sinus rhythm, no ST-segment or T-waves abnormality. The QT seems to be slightly prolonged. A chest x-ray has already been noted. KUB showed mild constipation. ASSESSMENT: 1. Dyspnea on presentation secondary to pulmonary edema presumably from congestive heart failure with preserved ejection fraction. 2. Acute on chronic hypoxemic respiratory failure. The patient is on home 2 oxygen at 2 L. She is back on 2 L this morning. 3. Constipation. Will continue to address with bowel regimen. 4. History of chronic obstructive pulmonary disease. 5. Solitary kidney with an atrophic right kidney. 6. CKD stage 3A. 7. Hypothyroidism. Patient is on Synthroid. PLAN: In general, I think Ms. Chadwick is referring to be feeling a lot better. We will continue with her home medicine. Continue with the IV diuretics for another day and re-evaluate her fluid status. We will keep her strict I's and O's, low-salt diet. cc: Enzo Turner MD
[2019-10-23] MEDS: PREPARATION H OINT TOP PRN (20:33)
[2019-10-23] MEDS: CYMBALTA PO SCH (20:35)
[2019-10-24] MEDS: MELATONIN PO PRN (01:13)
[2019-10-24] MEDS: DUONEB (A & A) INH SCH ×4 (03:23→22:10)
[2019-10-24] MEDS: LASIX IV SCH ×2 (05:22→18:39)
[2019-10-24] MEDS: TYLENOL PO PRN (05:22)
[2019-10-24] MEDS: SYNTHROID PO SCH (06:25)
[2019-10-24] MEDS: COZAAR PO SCH (09:14)
[2019-10-24] MEDS: SINGULAIR PO SCH (09:14)
[2019-10-24] MEDS: POTASSIUM CHLORIDE 10% LIQUID PO SCH (09:14)
[2019-10-24] MEDS: ASPIRIN EC PO SCH (09:14)
[2019-10-24] MEDS: MIRALAX PO SCH (09:14)
[2019-10-24] MEDS: COREG PO SCH ×2 (09:14→21:11)
[2019-10-24] MEDS: DULCOLAX PR SCH (09:14)
[2019-10-24] MEDS: IMDUR PO SCH (09:14)
[2019-10-24] MEDS: PREPARATION H OINT TOP PRN (09:36)
[2019-10-24] MEDS: ROCEPHIN 1 GM in NS 50 ML IV SCH (09:36)
[2019-10-24] MEDS ORDERED: CALMOSEPTINE OINTMENT TOP PRN (15:14)
--- NOTE | 2019-10-24 17:12 | PROGRESS NOTE ---
DATE: 10/24/2019 SUBJECTIVE: This morning Ms. Chadwick refers to be doing a lot better. She said her breathing has significantly improved. The daughter was at the bedside with her at the time of the encounter. OBJECTIVE: Vital signs: Blood pressure is 120/56, pulse of 62, respirations 16, temperature 97.8 degrees. General: Ms. Chadwick is a 74-year-old elderly, female, morbidly obese with a BMI of 39.8. She was in bed in no distress. HEENT: Mucosa is pink and moist. Anicteric. Acyanotic. Neck: Supple. Chest: Good air entry bilaterally, still a few crackles in the posterior lung jones. Cardiovascular: Regular rate and rhythm. No murmurs, no rubs, no gallops. GI.: Soft, nontender. Bowel sounds present. Extremities: About 1+ pedal edema. SUPERVISOR SHIPFITTERS: Patient is awake, alert, oriented. No focal deficits. LABORATORY DATA: None for this morning. ASSESSMENT: 1. Dyspnea on presentation secondary to pulmonary edema from congestive heart failure with preserved ejection fraction. 2. Acute on chronic hypoxemic respiratory failure; patient is down to 2 L. 3. Constipation. Will continue bowel regimen. 4. History of chronic obstructive pulmonary disease, not in exacerbation. 5. Solitary kidney with an atrophic right kidney associated with stage 3 chronic kidney disease. 6. Hypothyroidism. Patient is on supplement. 7. Escherichia coli urinary tract infection. The patient has been started on ceftriaxone. PLAN: In general, I think Ms. Chadwick is doing a lot better. Breathing has improved. She has been started on ceftriaxone and has not had any allergic reaction to this. We are going to continue with the IV diuretics for now and re-evaluate her volume status tomorrow. cc: Enzo Turner MD
[2019-10-24] MEDS: CYMBALTA PO SCH (21:11)
[2019-10-25] MEDS: DUONEB (A & A) INH SCH ×4 (03:39→22:23)
[2019-10-25] MEDS: DULCOLAX PR SCH ×3 (04:02→20:45)
[2019-10-25] MEDS: MIRALAX PO SCH ×3 (04:02→20:45)
[2019-10-25] MEDS: SYNTHROID PO SCH (06:21)
[2019-10-25] MEDS: LASIX IV SCH (06:21)
[2019-10-25 08:03] LABS: ALBUMIN 3.4 g/dL (3.5-5.0); CALCIUM 8.6 mg/dL (8.8-10.2); CREATININE 2.1 mg/dL (0.5-0.9); POTASSIUM 4.2 mmol/L (3.5-5.1)
--- NOTE | 2019-10-25 09:58 | Diag Imaging Result Doc PS360 ---
EXAM: CHEST-2 VIEWS INDICATION: hypoxia TECHNIQUE: 2 views COMPARISON: 10/22/2019 FINDINGS: Increased interstitial markings at the lung bases are again identified. They are stable to marginally improved. There is also probably a component of atelectasis at the lung bases. No new consolidation is identified. Cardiac silhouette is stable. IMPRESSION: Stable to marginal decrease in interstitial markings at the lung bases. Electronically signed by Sagar Hunter 10/25/2019 9:56 AM
[2019-10-25] MEDS: COZAAR PO SCH (10:02)
[2019-10-25] MEDS: SINGULAIR PO SCH (10:03)
[2019-10-25] MEDS: POTASSIUM CHLORIDE 10% LIQUID PO SCH (10:03)
[2019-10-25] MEDS: COREG PO SCH ×2 (10:03→20:44)
[2019-10-25] MEDS: IMDUR PO SCH (10:03)
[2019-10-25] MEDS: ASPIRIN EC PO SCH (10:04)
[2019-10-25] MEDS: ROCEPHIN 1 GM in NS 50 ML IV SCH (10:04)
[2019-10-25] MEDS ORDERED: HALL'S COUGH LOZENGE MT PRN (11:21)
--- NOTE | 2019-10-25 12:44 | NEPHROLOGY CONSULTATION ---
DATE: 10/25/2019 REASON FOR ADMISSION: Shortness of breath, fluid volume overload. REASON FOR CONSULTATION: Acute on chronic kidney disease. CONSULTING PHYSICIAN: Enzo Turner MD HISTORY OF PRESENT ILLNESS: This is a 74-year-old female with a past medical history of CHF with preserved ejection fraction of 60% COPD, CKD with a solitary functioning left kidney. History of TIAs, coronary artery disease, hypothyroidism. Her greater the prior to admission. She had about 2 weeks of worsening edema. She is already on a low-sodium diet. She states that she has a 32 ounce fluid restriction from her geopolitics teacher. Her shortness of breath continued. She stated that her lower extremities swelled up significantly. She came into the emergency room. She was admitted to the hospital for that, for CHF, pulmonary edema as well as abdominal pain and had her Lasix increased over several days. The patient stated that she has significant urine output. The chart however indicates that she has only made about 2.6 L total. However, she appears to be 1.7 L negative according to the charting. It is unclear if the patient had been using they facilities without measuring or not. She had no edema to any significance to her lower extremities today and patient states that her legs are "back to normal." The patient does have COPD. She is on a BiPAP now for about 2 years. She uses oxygen chronically at home 2 L at night. The patient states that she had a PFO closure some years ago and follows with Cardiology in [place]. She states that because of her solitary kidney. She is followed with Nephrology in [place] but is it is difficult for her to drive over there. PAST MEDICAL HISTORY: Congestive heart failure. Last known ejection fraction 60%. Hypertension, coronary artery disease, history of myocardial infarction. PFO, patent foramina ovale she is status post closure, COPD on O2 at night along with a CPAP for her sleep apnea. GERD, CKD, atrophic right kidney. Baseline creatinine around 1.2. TIA, depression, hypothyroidism, fibromyalgia, scoliosis, spinal stenosis, Raynaud, Sjogren, osteoarthritis and lupus. SURGICAL HISTORY: Cholecystectomy, hysterectomy, section, PFO closure, sinus surgery, thyroidectomy breast reduction bunionectomy, acute distress. Back surgery, cataract surgery. ALLERGIES: She has an extensive list of allergies. Please see chart but those do include amoxicillin, clarithromycin, clavulanic acid. Levofloxacin, nonsteroidals, penicillin, shellfish, spironolactone, pork and adhesive today. HOME MEDICATIONS: Aspirin, Bumex, Cymbalta, Lasix, Imdur, Synthroid, losartan, Singulair, nitroglycerine, potassium chloride. Spiriva. Coreg. FAMILY HISTORY: Lymphoma, hypertension, cancer, CVA. SOCIAL HISTORY: , former smoker. Quit smoking 13 years ago. No ETOH or illicit drug use. REVIEW OF SYSTEM: Systems today denies shortness of breath, is on room air. Continues with some mild abdominal/epigastric pain. PHYSICAL EXAMINATION: Vital Signs: Temperature 97.3 degrees, pulse 76, respiratory rate 18, blood pressure 122/62. Intake 440 mL. Output 500 mL plus voids not measured. General: This is an elderly female, sitting up on the side of the bed. She is awake and alert. She is in no acute distress. HEENT: Normocephalic, atraumatic. [place]. Neck: Supple. There is no JVD in the upright position. Cardiovascular: Regular rate and rhythm without murmur. Pulmonary: She is clear bilaterally. Decreased breath sounds but no rales or wheezes. Is on room air. Abdomen: Obese, positive bowel sounds. Genitourinary: Voiding. Extremities: She has some trace lower pretibial/pedal edema on the left. No edema on the right pretibial. Integumentary: Skin is warm and dry. Neurologic: Nonfocal. LAB DATA: Sodium 144, potassium 4.2, CO2 32, creatinine 2.1. Her chest x-ray with pleural effusion that is chronic versus fibrosis. ASSESSMENT AND PLAN: 1. Acute on chronic kidney disease in the setting of congestive heart failure exacerbation, and increased diuretic use. The patient does have a solitary kidney. Her diuretics have been held. Her losartan has been held. We have ordered imaging and urine studies this morning. Once we have those results back further plan to follow. 2. Electrolytes, acid-base balance. These are all stable. 3. Hypertension controlled. She had 1 episode of mildly hypotensive episodes in the last 2 days. 4. Fluid volume. The chart indicates she is 1 to 2 kg down since admission. The patient by report indicates that her edema was much greater than what one would expect with 1 to 2 kg on so it is unclear picture of her fluid volume although at this particular time she does not appear overloaded. She did have a chest x-ray this morning. That report is not quite available yet. Thank you for the consult. Dictated by BEVERLY Wilkes for Mao Freire MD Face to face encounter, data reviewed, discussed with Maurizio Mistry on 10/25/18. I agree with the above assessment and plan of care. cc: Mao Freire MD [facility]
--- NOTE | 2019-10-25 15:39 | Diag Imaging Result Doc PS360 ---
EXAM: US RENAL 2 (RETROPER) COMPLETE INDICATION: darci/arf TECHNIQUE: COMPARISON: None. FINDINGS: Right kidney is atrophic measuring 5.4 cm in the greatest longitudinal axes. Right renal cortex measures 0.6 cm in thickness. The left kidney measures 10.7 cm in the greatest longitudinal axes with a renal cortex of 0.8 cm in thickness. There is a 1.6 cm slightly complex cyst at the mid left kidney appearing to have internal debris. There is a 1.1 cm simple cyst at the lower pole of the left kidney. The urinary bladder is nondistended and does not well evaluated. IMPRESSION: 1.Atrophic right kidney. 2.Nonspecific slightly complex cyst associated with the left kidney. Consider follow-up with either ultrasound or contrast-enhanced CT. Electronically signed by Sagar Hunter 10/25/2019 3:36 PM
[2019-10-25] MEDS: TYLENOL PO PRN (15:48)
--- NOTE | 2019-10-25 18:58 | PROGRESS NOTE ---
DATE: 10/25/2019 SUBJECTIVE: This morning, Ms. Chadwick refers to be doing well. She was actually off supplemental oxygen at the time of the encounter. OBJECTIVE: Vital signs: Blood pressure is 117/73, pulse of 67, respirations 19, and temperature 98.2 degrees. The patient was saturating 96% on room air. General: Ms. Chadwick is a 74-year- old elderly female. She was sitting at the edge of the bed. No distress. Mucosa is pink and moist. Anicteric. Acyanotic. Neck: Supple. Chest: Good air entry bilaterally. There were no crackles. Cardiovascular: Regular rate and rhythm. No murmurs, no rubs, no gallops. [place] beat was at 5th intercostal space, midclavicular line. Gastrointestinal: Abdomen was soft, nontender. Bowel sounds present. There was no hepatosplenomegaly. Extremities: No pedal edema. Central nervous system: Patient was awake, alert, oriented. No focal deficit. LABORATORY DATA: CBC is reviewed. Sodium is 141. Creatinine has gone up to 2.1. INPUT AND OUTPUT: Urine output was 500. She is currently negative balance over 1781. IMAGING: A chest x-ray this morning shows stable marginal decrease in interstitial markings at the lung bases. Renal ultrasound shows atrophic right kidney and nonspecific slight complex cyst in the left kidney, and they recommend a follow-up ultrasound or contrast-enhanced CT scan. CURRENT MEDICATIONS: Have all been reviewed. Lasix and Cozaar have both been withheld. ASSESSMENT AND PLAN: 1. Dyspnea on presentation secondary to pulmonary edema from congestive heart failure exacerbation. 2. Acute on chronic hypoxemic respiratory failure. Patient is improved. 3. Acute on chronic kidney failure. Ultrasound shows atrophic right kidney. Creatinine has gone up this morning. Nephrology has been consulted. The patient's diuretics and ARBs have both been withheld. 4. Hypothyroidism. We will continue with supplements. 5. Escherichia coli urinary tract infection. Patient is on ceftriaxone. Today is day 1 for a total of 7 to 10 days treatment. 6. Constipation. Improved with bowel regimen. 7. History of chronic obstructive pulmonary disease, currently not in exacerbation. In general, Ms. Chadwick presented initially because of shortness of breath, congestive heart failure symptoms. Chest x-ray did reveal recurrent pulmonary edema versus fibrosis. The patient was diuresed with IV diuretic. She felt better. This morning she was off supplemental oxygen. Unfortunately, her kidney function has gotten worse. We withheld the diuretics as well as the ARBs, and Nephrology has been consulted. On the renal ultrasound, it is noted that the patient has atrophic right kidney. She also has a complex cyst on the left kidney, which recommendation is to follow up with ultrasound or a contrast CT at a later date. We will follow up with further recommendations from Nephrology. cc: Enzo Turner MD
[2019-10-25] MEDS: CYMBALTA PO SCH (20:44)
[2019-10-26] MEDS: MELATONIN PO PRN ×2 (00:39→22:31)
[2019-10-26 01:38] LABS: UR CREAT RANDOM 176.9 mg/dL (11-20)
[2019-10-26] MEDS: DUONEB (A & A) INH SCH ×4 (05:49→22:35)
[2019-10-26] MEDS: SYNTHROID PO SCH (06:06)
[2019-10-26 07:42] LABS: ALBUMIN 3.6 g/dL (3.5-5.0); PHOSPHORUS 4.2 mg/dL (2.7-4.5); POTASSIUM 4.1 mmol/L (3.5-5.1)
[2019-10-26] MEDS: COREG PO SCH ×2 (10:14→21:35)
[2019-10-26] MEDS: SINGULAIR PO SCH (10:14)
[2019-10-26] MEDS: ASPIRIN EC PO SCH (10:14)
[2019-10-26] MEDS: ROCEPHIN 1 GM in NS 50 ML IV SCH (10:14)
[2019-10-26] MEDS: IMDUR PO SCH (10:14)
[2019-10-26] MEDS: TYLENOL PO PRN (10:15)
[2019-10-26] MEDS: MIRALAX PO SCH ×2 (10:15→21:35)
[2019-10-26] MEDS: POTASSIUM CHLORIDE 10% LIQUID PO SCH (10:15)
[2019-10-26] MEDS: DULCOLAX PR SCH ×2 (10:15→21:35)
--- NOTE | 2019-10-26 12:31 | PROVIDER PROGRESS NOTE ---
Progress Note Subjective: Voices feeling less short of breath. Denies N/V, chills, fever, and chest pain. Objective: temperature 98.2, pulse 65, respirations 20, blood pressure 123/54, 02 sat 97% on room air. General: Elderly white female lying in bed in no acute distress. HEENT: Normocephalic, atraumatic. Dry mucous membranes. Pupils equal and reactive. Trachea midline. Skin: warm and dry with multiple bruises. Neck: supple, 6cm JVD with hepatojugular reflux Cardiovascular: S1S2, regular rate and rhythm, no murmurs or gallops. Respiratory: Rhonchi noted anteriorly. Abdomen: soft, obese, nontender, nondistended. Bowel sounds hypoactive. : non inspected Extremities: Left lower extremity edema starting mid calf with tenderness and erythema. Neurological: alert and oriented to person place and time. Labs: sodium 136, potassium 4.1, chloride 94, carbon dioxide 28, BUN 41, creatinine 2.0, intake 320, output 400. Impression: Acute on chronic kidney disease. Fractional excretion of urea is suggestive of prerenal azotemia. Continue to hold lasix and losartan. Left lower leg edema. Doppler ultrasound. Blood pressure. Stable. Fluid volume. Stable. Electrolytes and acid base balance. Stable. Nutrition. Adequate. Medication review. No changes. abel
[2019-10-26] MEDS: CYMBALTA PO SCH (21:35)
[2019-10-26] MEDS: PRILOSEC PO SCH (21:35)
--- NOTE | 2019-10-26 22:54 | PROGRESS NOTE ---
DATE: 10/26/2019 SUBJECTIVE: Patient has no major complaints. OBJECTIVE: Vital signs: Blood pressure 140/58, heart rate 65, respiratory rate of 16, temperature 98.6 degrees. Cardiovascular: Regular rate and rhythm. Pulmonary: Bilateral breath sounds clear to auscultation. Gastrointestinal: Soft, nontender, nondistended. Bowel sounds were positive. LABORATORY DATA: Basic was normal except creatinine bumped up to 2. PROBLEM LIST: 1. Acute kidney injury. We will continue gentle hydration and follow closely. 2. Congestive heart failure exacerbation. We will have to monitor. Her hypoxia has resolved. 3. Hypothyroidism. Continue Synthroid. 4. Escherichia coli urinary tract infection. She is on day 2 of 7 of Rocephin. 5. Constipation is stable. DISPOSITION: Pending her clinical status. cc: Rickie Myles MD
[2019-10-27] MEDS: DUONEB (A & A) INH SCH ×4 (03:32→22:00)
[2019-10-27 07:03] LABS: BASO# 0.05 X1000 (0.0-0.2); BASO% 0.8 % (0.0-0.8); EOS# 0.24 X1000 (0.0-0.7); EOS% 3.8 % (0.0-10.0); HEMATOCRIT 31.6 % (37.0-47.0); HEMOGLOBIN 9.6 g/dL (12.0-16.0); LYMPH# 1.55 X1000 (1.2-3.4); LYMPH% 24.7 % (20.5-51.1); MCH 29.5 PG (27-31); MCHC 30.4 g/dL (33-37); MCV 97.2 FL (81-99); MONO# 0.57 X1000 (0.11-0.59); MONO% 9.1 % (1.7-9.3); MPV 10.4 FL (7.4-10.4); NEUT# 3.87 X1000 (1.4-6.5); NEUT% 61.6 % (42.2-75.2); PLT 185 X1000 (130-400); RBC 3.25 XMIL (4.2-5.4); RDW 14.3 % (11.5-14.5); WBC 6.28 X1000 (4.8-10.8)
[2019-10-27] MEDS ORDERED: PREDNISONE PO ONE (07:16)
[2019-10-27 07:58] LABS: CREATININE 1.5 mg/dL (0.5-0.9)
[2019-10-27] MEDS: IMDUR PO SCH (10:18)
[2019-10-27] MEDS: PRILOSEC PO SCH ×2 (10:18→21:20)
[2019-10-27] MEDS: SYNTHROID PO SCH (10:18)
[2019-10-27] MEDS: SINGULAIR PO SCH (10:19)
[2019-10-27] MEDS: COREG PO SCH ×2 (10:19→21:20)
[2019-10-27] MEDS: POTASSIUM CHLORIDE 10% LIQUID PO SCH (10:19)
[2019-10-27] MEDS: ASPIRIN EC PO SCH (10:19)
[2019-10-27] MEDS: DULCOLAX PR SCH (10:19)
[2019-10-27] MEDS: ROCEPHIN 1 GM in NS 50 ML IV SCH (10:20)
[2019-10-27] MEDS: MIRALAX PO SCH ×2 (10:20→21:20)
--- NOTE | 2019-10-27 15:48 | PROVIDER PROGRESS NOTE ---
Progress Note Subjective: Voices feeling less short of breath. Denies N/V, chills, fever, and chest pain. Objective: temperature 98.4, pulse 68, respirations 20, blood pressure 126/69, 02 sat 98% on room air. General: Elderly white female lying in bed in no acute distress. HEENT: Normocephalic, atraumatic. Dry mucous membranes. Pupils equal and reactive. Trachea midline. Skin: warm and dry with multiple bruises. Neck: supple, 6cm JVD with hepatojugular reflux Cardiovascular: S1S2, regular rate and rhythm, no murmurs or gallops. Respiratory: Rhonchi noted anteriorly. Abdomen: soft, obese, nontender, nondistended. Bowel sounds hypoactive. : non inspected Extremities: Left lower extremity edema starting mid calf with tenderness and erythema. Neurological: alert and oriented to person place and time. Labs: WBC 6.28, hemoglobin 9.6, hematocrit 31.6, platelet count 185, sodium 138, potassium 4.0, chloride 97, carbon dioxide 29, BUN 37, creatinine 1.5. Intake 900, output 1300. Impression: Acute on chronic kidney disease. Likely prerenal azotemia. BUN and Creatinine have improved. Continue to hold lasix and losartan. Left lower leg edema. Possible Gout. One dose of prednisone PO ordered. Doppler ultrasound. Blood pressure. Stable. Fluid volume. Stable. Electrolytes and acid base balance. Stable. Nutrition. Adequate. Medication review. No changes.
--- NOTE | 2019-10-27 20:13 | Diag Imaging Result Doc PS360 ---
EXAM: ABDOMEN FLAT/UPRIGHT INDICATION: pain TECHNIQUE: 2 views COMPARISON: 10/22/2019 FINDINGS: There is a fair amount stool throughout the colon suggesting possible constipation. There is no obstructive bowel pattern. There is no evidence of large volume free abdominal gas. There is extensive degenerative arthropathy involving the lumbar spine. IMPRESSION: Possible constipation. Nonspecific abdomen, otherwise. Electronically signed by Sagar Hunter 10/27/2019 8:11 PM
--- NOTE | 2019-10-27 21:10 | Extremity Venous Study ---
PROCEDURE NAME: Venous U/S Left Leg - 10/26/2019 ASSOCIATION EXECUTIVE: Jasmine. REQUEST PHYSICIAN: Dr. Freire. INDICATIONS: Left lower extremity swelling. Date of exam for comparison is 04/01/2019. FINDINGS: The deep superficial veins of the left lower extremity were visualized along their course. The vessels were compressible with forward flow and no evidence of intraluminal thrombus. SUMMARY: No deep or superficial venous thrombosis in the left lower extremity. cc: MD Mao Barton MD
--- NOTE | 2019-10-27 21:18 | PROGRESS NOTE ---
DATE: 10/27/2019 SUBJECTIVE: The patient looks like she is breathing okay. No major complaints. OBJECTIVE: Vital signs: Blood pressure is 123/56, heart rate 64, respiratory rate 18, temperature 98.2 degrees. Cardiovascular: Regular rate and rhythm. Pulmonary: Bilateral breath sounds clear to auscultation. Gastrointestinal: Soft, nontender, nondistended. Bowel sounds are positive. Extremity Exam: No clubbing or cyanosis. Lymphatic Exam: She does have peripheral edema. LABORATORY DATA: Her creatinine is down to 1.5, BUN 37, H and H 9 and 31, which is normal. PROBLEM LIST: 1. Acute kidney injury. She is improving. Nephrology service is following. 2. Acute congestive heart failure exacerbation. She seems to be stabilizing. We have held her diuretics, ARBs for the time being until her renal function improves. 3. Possible irritable bowel syndrome, chronic constipation, which apparently is an issue that has been going on for a significant amount of time. We will continue to monitor. 4. Acute gouty pauciarticular arthritis. She has been started on some steroids. Alternatively, also we could give her colchicine once her renal function stabilizes. We will follow. DISPOSITION: I anticipate she should be able to go back home hopefully in the next day or so. We will discuss with consultants. cc: Rickie Myles MD
[2019-10-27] MEDS: CYMBALTA PO SCH (21:20)
[2019-10-27] MEDS: MELATONIN PO PRN (21:20)
[2019-10-28] MEDS: DUONEB (A & A) INH SCH ×4 (04:00→21:26)
[2019-10-28] MEDS: DULCOLAX PR SCH ×3 (05:05→20:26)
[2019-10-28 07:18] LABS: BASO# 0.03 X1000 (0.0-0.2); BASO% 0.4 % (0.0-0.8); EOS# 0.15 X1000 (0.0-0.7); HEMATOCRIT 30.2 % (37.0-47.0); HEMOGLOBIN 9.2 g/dL (12.0-16.0); IMM GRAN# 0.02 X1000 (0.0-0.04); IMM GRAN% 0.3 % (0.0-0.5); LYMPH# 1.45 X1000 (1.2-3.4); LYMPH% 19.3 % (20.5-51.1); MCH 29.5 PG (27-31); MCHC 30.5 g/dL (33-37); MCV 96.8 FL (81-99); MONO# 0.72 X1000 (0.11-0.59); MONO% 9.6 % (1.7-9.3); MPV 10.6 FL (7.4-10.4); NEUT# 5.16 X1000 (1.4-6.5); NEUT% 68.4 % (42.2-75.2); PLT 192 X1000 (130-400); RBC 3.12 XMIL (4.2-5.4); RDW 13.9 % (11.5-14.5); WBC 7.53 X1000 (4.8-10.8)
[2019-10-28 07:47] LABS: ALBUMIN 3.2 g/dL (3.5-5.0); CREATININE 1.5 mg/dL (0.5-0.9); PHOSPHORUS 3.2 mg/dL (2.7-4.5); POTASSIUM 4.2 mmol/L (3.5-5.1); URIC ACID 10.3 mg/dL (2.4-5.7)
[2019-10-28] MEDS: PRILOSEC PO SCH ×2 (08:24→20:24)
[2019-10-28] MEDS: SYNTHROID PO SCH (08:24)
[2019-10-28] MEDS: SINGULAIR PO SCH (09:22)
[2019-10-28] MEDS: POTASSIUM CHLORIDE 10% LIQUID PO SCH (09:22)
[2019-10-28] MEDS: IMDUR PO SCH (09:23)
[2019-10-28] MEDS: COREG PO SCH ×2 (09:23→20:25)
[2019-10-28] MEDS: ASPIRIN EC PO SCH (09:23)
[2019-10-28] MEDS: MIRALAX PO SCH (09:24)
[2019-10-28] MEDS: ROCEPHIN 1 GM in NS 50 ML IV SCH (11:03)
[2019-10-28] MEDS: PREDNISONE PO SCH (16:11)
--- NOTE | 2019-10-28 19:50 | PROGRESS NOTE ---
DATE: 10/28/2019 SUBJECTIVE: Patient has no major complaints. Her stomach feels better. She looks like she is breathing better, but she still says she gets short of breath. OBJECTIVE: Blood pressure is 120/53, heart rate of 69, respiratory rate 16, temperature 98.2 degrees, 97% on 2 L.Cardiovascular: Regular rate and rhythm. Pulmonary: Bilateral breath sounds clear to auscultation. GI: Soft, nontender, nondistended. Bowel sounds are positive. LABORATORY DATA: White count 7, hemoglobin 9 and hematocrit 30, platelets 192,000. Basic was normal. Creatinine 1.5. Uric acid 10.3, albumin 3.2. Urine sodium was 16. ASSESSMENT AND PLAN: 1. Acute kidney injury. This is slowly improving. We will continue to follow. 2. Acute sees congestive heart failure exacerbation. She is off of her diuretics and ARBs because of the acute kidney issue but at some point we will have to resume some of these. 3. Constipation. We will continue regular medications. DISPOSITION: I anticipate discharge soon. Just awaiting final recommendations from consultants. cc: Rickie Myles MD
[2019-10-28] MEDS: CYMBALTA PO SCH (20:25)
--- NOTE | 2019-10-28 20:25 | PROVIDER PROGRESS NOTE ---
Progress Note Subjective: She Voiced some relief with prednisone yesterday, but she still has pain and redness to left ankle and foot. Objective: temperature 97.9, pulse 84, respirations 16, blood pressure 139/49, 02 sat 92% on room air. General: Elderly white female lying in bed in no acute distress. HEENT: Normocephalic, atraumatic. Dry mucous membranes. Pupils equal and reactive. Trachea midline. Skin: warm and dry with multiple bruises. Neck: supple, 6cm JVD with hepatojugular reflux Cardiovascular: S1S2, regular rate and rhythm, no murmurs or gallops. Respiratory: Rhonchi noted anteriorly. Abdomen: soft, obese, nontender, nondistended. Bowel sounds hypoactive. : non inspected Extremities: Left lower extremity edema starting at the ankle area with tenderness and erythema. Neurological: alert and oriented to person place and time. Labs: WBC 7.53, hemoglobin 9.2, hematocrit 30.2, platelet count 192, sodium 139, potassium 4.2, chloride 101, carbon dioxide 28, BUN 33, creatinine 1.5, albumin 3.2. Intake 700, output 600. Impression: Acute on chronic kidney disease. Likely prerenal azotemia. BUN and Creatinine stable. Adequate urine output. Continue to hold lasix and losartan. No change in plan. We will sign off. Please call if we can help further. rg Left lower leg edema. Possible Gout. Doppler ultrasound ordered. We will order p rednisone 20mg Daily for 4 days. Blood pressure. Stable. Fluid volume. Stable. Electrolytes and acid base balance. Stable. Nutrition. Adequate. Medication review. No changes.
[2019-10-28] MEDS: MELATONIN PO PRN (23:57)
[2019-10-29] MEDS: DUONEB (A & A) INH SCH ×2 (04:35→11:26)
[2019-10-29] MEDS ORDERED: ATIVAN IV ONE (04:59)
[2019-10-29] MEDS: PRILOSEC PO SCH (07:26)
[2019-10-29] MEDS: SYNTHROID PO SCH (07:26)
[2019-10-29 07:40] LABS: BASO# 0.02 X1000 (0.0-0.2); BASO% 0.3 % (0.0-0.8); EOS# 0.03 X1000 (0.0-0.7); EOS% 0.4 % (0.0-10.0); HEMATOCRIT 31.7 % (37.0-47.0); HEMOGLOBIN 9.7 g/dL (12.0-16.0); IMM GRAN# 0.02 X1000 (0.0-0.04); IMM GRAN% 0.3 % (0.0-0.5); LYMPH# 1.21 X1000 (1.2-3.4); LYMPH% 16.3 % (20.5-51.1); MCH 29.6 PG (27-31); MCHC 30.6 g/dL (33-37); MCV 96.6 FL (81-99); MONO# 0.44 X1000 (0.11-0.59); MONO% 5.9 % (1.7-9.3); MPV 10.4 FL (7.4-10.4); NEUT% 76.8 % (42.2-75.2); PLT 207 X1000 (130-400); RBC 3.28 XMIL (4.2-5.4); RDW 14.2 % (11.5-14.5); WBC 7.42 X1000 (4.8-10.8)
[2019-10-29 08:24] LABS: POTASSIUM 4.6 mmol/L (3.5-5.1)
[2019-10-29] MEDS ORDERED: MIRALAX PO SCH ×2 (09:00)
[2019-10-29] MEDS: SINGULAIR PO SCH (09:05)
[2019-10-29] MEDS: COREG PO SCH (09:05)
[2019-10-29] MEDS: PREDNISONE PO SCH (09:05)
[2019-10-29] MEDS: ASPIRIN EC PO SCH (09:05)
[2019-10-29] MEDS: IMDUR PO SCH (09:05)
[2019-10-29] MEDS: POTASSIUM CHLORIDE 10% LIQUID PO SCH (09:06)
[2019-10-29] MEDS: DULCOLAX PR SCH (09:06)
[2019-10-29] MEDS: ROCEPHIN 1 GM in NS 50 ML IV SCH (09:36)
--- NOTE | 2019-10-29 11:32 | Diag Imaging Result Doc PS360 ---
CHEST-2 VIEWS - 10/29/2019 INDICATION: hypoxia COMPARISON: 10/25/2019 FINDINGS: Stable cardiomegaly and significant pulmonary vascular congestion. There is been slight decrease in the density of the focal infiltrates in the right middle lobe in the left lung base. No new infiltrates. No pneumothorax or pleural effusion. IMPRESSION: Slight improvement from prior. Electronically signed by Oscar Dobbins 10/29/2019 11:30 AM
[2019-10-29 11:40] VITALS: BP 146/78
--- NOTE | 2019-10-29 23:52 | DISCHARGE SUMMARY ---
ADMISSION DATE: 10/23/2019 DISCHARGE DATE: 10/29/2019 DISCHARGE DIAGNOSES: 1. Acute kidney injury due to diuretics. 2. Acute presumed CHF exacerbation. 3. Chronic constipation, likely with irritable bowel syndrome. 4. COPD. CONSULTATIONS: Nephrology. PROCEDURES: None. This is a 74-year-old female admitted on the for shortness of breath, CHF. She was placed on diuretics. Her initial creatinine was 0.2. The patient was otherwise stable and doing okay, bowel regimen. Chest x-ray was increased and then her creatinine jumped up to 2 with diuretics from 1.2. Renal ultrasound. Nephrology consultation was obtained. She had some complex cyst in the left kidney. Nephrology was following. They felt that this was likely due to hypotension and diuretic effect. She was given gentle hydration, I think improved and her creatinine went down to 1.5 and then down to 1.0. The patient Lasix and losartan were held. Venous ultrasounds were obtained which were negative. She was complaining of some intermittent abdominal discomfort which is chronic and it looks like she probably had some constipation. Her x-ray on the day of discharge was improved. She still had some atelectasis, but overall looked okay. Her room air sat was 95% on room air. She is on oxygen at home at night. DISCHARGE MEDICATIONS: Cymbalta 60 at bedtime, albuterol nebs q. 6, Bumex we will stop, red yeast rice soft gel, Coreg 25 b.i.d., Imdur 30 daily, Klor-Con 20 daily, losartan 100 daily, nitroglycerin p.r.n., Plaquenil 200 three times a week on Friday, Singulair 10 daily, Spiriva 1 puff daily, aspirin 81 daily, Synthroid 175 daily, vitamin B12 2000 mcg daily, vitamin D3 at 2000 units daily, Ultram 50 q. 8 h. p.r.n. pain Ativan 0.5 b.i.d. p.r.n. anxiety, Omnicef 300 p.o. b.i.d. for 7 days, prednisone 20 daily, and it will be Lasix 40 daily. DISCHARGE CONDITION: Stable. We will continue to follow closely. I told her to follow-up with Dr. Delong in a week just to repeat her labs. Also probably add MiraLAX for chronic constipation. cc: Rickie Myles MD
== END 2019-10-29 15:27 | disposition home or self-care (01) | DRG 291 ==
LOC: SUPCPDRO → ED 16:54 → SUATTDRO 23:33 → EDIPHOLD 23:33 → 4N 10-23 13:50
PROVIDERS: ATTEND Internal Medicine

== ENCOUNTER 2019-11-15 11:10 | Inpatient (IN) ==
[2019-11-15] MEDS ORDERED: NS 1,000 ML IV ONE ×2 (11:57→15:54)
--- NOTE | 2019-11-15 12:07 | PROVIDER DOCUMENTATION ---
HPI-General Adult - General Chief Complaint: B/P Problems Stated Complaint: BP LOW FLUID Time Seen by Provider: 11/15/19 11:34 Source: patient Allergies/Adverse Reactions: Patient Allergies Allergy/AdvReac Type Severity Reaction Status Date / Time adhesive tape Allergy ITCHING Verified 11/15/19 11:46 amoxicillin Allergy SHORTNESS Verified 11/15/19 11:46 OF BREATH clarithromycin [From Biaxin] Allergy Unknown Verified 11/15/19 11:46 clavulanic acid Allergy SHORTNESS Verified 11/15/19 11:46 [From Augmentin] OF BREATH levofloxacin [From Levaquin] Allergy Unknown Verified 11/15/19 11:46 NSAIDS (Non-Steroidal Allergy Unknown Verified 11/15/19 11:46 Anti-Inflamma Penicillins Allergy Unknown Verified 11/15/19 11:46 pork derived (porcine) Allergy Unknown Verified 11/15/19 11:46 shellfish derived Allergy Unknown Verified 11/15/19 11:46 spironolactone Allergy Unknown Verified 11/15/19 11:46 [From Aldactone] Home Medications: Home Medication List Medication Instructions Recorded Confirmed Last Taken Type Duloxetine [Cymbalta] 60 mg PO QHS 11/26/17 11/15/19 11/15/19 History Isosorbide Mononitrate E.r. [Imdur] 30 mg PO DAILY 11/26/17 11/15/19 11/15/19 History Levothyroxine Sodium [Synthroid] 175 microgm PO QAM 11/26/17 11/15/19 11/15/19 History Montelukast Sodium [Singulair] 10 mg PO QAM 11/26/17 11/15/19 11/15/19 History Potassium Chloride [Klor-Con] 20 meq PO QAM 11/26/17 11/15/19 11/15/19 History Tramadol [Ultram] 50 mg PO Q8HR PRN #20 tab 12/06/17 11/15/19 1 Month Ago Rx ~06/24/19 Nitroglycerin 0.4 mg SL PRN PRN 03/30/18 11/15/19 3 Months Ago History ~04/24/19 Losartan Potassium 100 mg PO DAILY 04/01/19 11/15/19 11/15/19 History Albuterol [Albuterol Neb] 2.5 mg INH Q6H PRN PRN 10/23/19 11/15/19 Unknown History Aspirin [[place] Aspirin EC] 81 mg PO DAILY 10/23/19 11/15/19 11/15/19 History Carvedilol [Coreg] 25 mg PO BID 10/23/19 11/15/19 11/15/19 History Cholecalciferol (Vitamin D3) 2,000 unit PO DAILY 10/23/19 11/15/19 11/15/19 History [Vitamin D3] Cyanocobalamin (Vitamin B-12) 2,000 mcg PO DAILY 10/23/19 11/15/19 11/15/19 History [Vitamin B-12] Hydroxychloroquine [Plaquenil] 200 mg PO DIRECTED 10/23/19 11/15/19 11/15/19 History Tiotropium [place] Inhaler 1 puff INH RTDAILY 10/23/19 11/15/19 11/15/19 History [Spiriva] Ubidecarenone/Red Yeast Rice [Co 1 ea PO DAILY 10/23/19 11/15/19 11/15/19 History Q-10 Red Yeast Rice Softgel] CefDINIR [Omnicef] 300 mg PO BID #14 cap 10/29/19 11/15/19 11/15/19 Rx Lorazepam [Ativan] 0.5 mg PO BID PRN #20 tab 10/29/19 Unknown Rx Polyethylene Glycol 3350 [Miralax] 17 gm PO DAILY #30 powd.pack 10/29/19 11/15/19 11/15/19 Rx Prednisone 20 mg PO DAILY #5 tab 10/29/19 11/15/19 11/15/19 Rx Torsemide [Demadex] 1 tab PO DAILY 11/15/19 11/15/19 11/15/19 History - History of Present Illness -Gen Adult Nature of Presenting Problems: 74 year old female pmh significant for recent visit to urgent care for lower extremty swelling for which she was prescribed torsemide. She took her first dose this AM along with all of her other BP medications and states she began to feel light headed and when she checked her BP it was "low". She is denying any other ROS questioning at this time. No changes in vision, hearing, feelings of passing out, ataxia, chest pain, palpitations, shortness of breath, abdominal pain, dysurea, hematuria, difficulty with ambulation, changes in range of motion or sensation. Review of Systems - Adult - REVIEW OF SYSTEMS - ADULT Constitutional: denies: chills, fever Eyes: denies: blurred vision, double vision Ears, Nose, Mouth & Throat: reports: no symptoms reported Cardiovascular: reports: edema (bilateral swelling in the legs). denies: chest pain, heart murmur, irregular heart rate, orthopnea, palpitations, syncope Respiratory: denies: chronic cough, cough, shortness of breath, wheezing Gastrointestinal: denies: abdominal pain, hematemesis, diarrhea, difficulty swallowing, frequent heartburn, nausea, vomiting Genitourinary: denies: dysuria, discharge, flank pain, frequent UTI's, hematuria, hesitency, incontinence, urinary retention Musculoskeletal: reports: joint pain (diffuse, chronic) Integumentary: reports: no symptoms reported Neurological: reports: no symptoms reported Psychiatric: reports: no symptoms reported Endocrine: reports: no symptoms reported Hematologic/Lymphatic: reports: no symptoms reported Allergic/Immunologic: reports: no symptoms reported All Other Systems: Reviewed and Negative Past History - Adult - PAST MEDICAL HISTORY-ADULT Review of Records: reports: Old Records Reviewed, Nursing Assessment Review, Medications Reviewed, Social history reviewed & non-contributory. Major Childhood Illnesses: reports: denies history Cardiovascular: reports: CHF, HTN, [place] Respiratory: reports: COPD, sleep apnea Gastrointestinal: reports: GERD Obstetrical/Gynecological: reports: denies history Genitourinary: reports: denies history Musculoskeletal: reports: denies history Neurological: reports: CVA, TIA Psychiatric: reports: depression Endocrine/Immune: reports: denies history, thyroid disorder Other Conditions: reports: denies history, other (fibromylegia) - PRIOR SURGERIES/PROCEDURES Surgical/Procedure History: reports: reviewed, not pertinent, cholecystectomy, hysterectomy, - IMMUNIZATION STATUS Childhood Immunizations: See Nurse Assessment Flu Vaccine: See Nurse Assessment - FAMILY HISTORY Family History: reviewed, not pertinent - SOCIAL HISTORY Smoking: denies Substance Use: none/never Alcohol Use Frequency: never Physical Exam-General - PHYSICAL EXAM-ADULT Initial Vital Signs Reviewed: Yes (normal stable) - CONSTITUTIONAL General Appearance: appears well, alert, no apparent distress - EYES Eyes: PERRL/EOMI - HEAD, EARS, NOSE, MOUTH & THROAT HENMT: normocephalic/atraumatic - NECK Neck: non-tender, full range of motion, supple, normal inspection. negative: Brudzinski's sign, meningismus, thyromegaly - RESPIRATORY Respiratory: lungs clear, normal breath sounds (decreased air movement in bilateral lower lobes 2/2 poor inspiratory effort.), no accessory muscle use - CARDIOVASCULAR Cardiovascular: normal peripheral pulses, regular rate, rhythm, no edema, no gallop, no JVD - GASTROINTESTINAL (ABDOMEN) Abdominal Exam: non tender, soft - MUSCULOSKELETAL Back Exam: normal inspection Extremity: non-tender, normal gait, normal inspection, pedal edema (non-pitting bilaterally) Peripheral Pulses: radial (R): 2+, radial (L): 2+ - SKIN Integumentary: normal color, warm/dry. negative: rash - NEUROLOGIC Neurologic: veterinary toxicologist II-XII nml as tested, grossly normal, no motor/sensory deficits - PSYCHIATRIC Psych/Mental Status: normal mood/affect, normal thought content, normal thought process, oriented x 3 Progress - PLAN OF CARE/RESULTS Progress/Plan/Lab Results: Vital Signs - 8 hr 11/15/19 11:14 Temperature 98.2 F Pulse Rate 67 Respiratory Rate 16 Blood Pressure 99/50 O2 Sat by Pulse Oximetry 95 Orders Category Date Time Status Repeat Vital Signs .Blood Pressure Care 11/15/19 11:57 Active Repeat Vital Signs .Heart Rate Care 11/15/19 11:58 Active Repeat Vital Signs .Oxygen Saturation Care 11/15/19 11:58 Active Repeat Vital Signs .Respiratory Rate Care 11/15/19 11:58 Active Saline Loc NOW Care 11/15/19 11:57 Active 0.9% Sodium Chloride Inj [Ns] 1,000 ml Med 11/15/19 11:57 Active IV 999 mls/hr Result Diagrams: 11/15/19 12:13 11/15/19 12:13 - XRAY 1 XRAY Study: Chest Impression: Abnormal (Impression: cephalization, atelectasis of the lower lobes bilaterally.), See EMR Report (EXAM: CHEST-1 VIEW INDICATION: tachypnea TECHNIQUE: One view COMPARISON: 10/29/2019 FINDINGS: There is mild interstitial thickening with a basilar predominance bilaterally suggesting mild interstitial edema. There is no definite pleural fluid collection or pneumothorax by plain radiograph. There is pulmonary venous congestion similar to the previous study. There is stable cardiomegaly. IMPRESSION: Pulmonary venous congestion and mild interstitial edema. Electronically signed by Sagar Hunter 11/15/2019 1:43 PM 11/15/19 1343 Interpreting Physician: Sagar Hunter MD Dictated Date/Time: 11/15/19 1340 cc: Oscar Layne DO; Vik Delong) - CONSULTS/PCP/HOSPITALIST Notification #1 *Consult/PCP/Hospitalist*: s/w Narg[place], pt will likely be admitted for observation under Dr. Benavidse Time Discussed: 15:57 (admit obs) Reason/Comments: drug induced hypotension, dizziness Consult Disposition: Will see in ED, other (admit observation) Departure - Departure Date of Disposition Decision: 11/15/19 Time of Disposition Decision: 15:55 (admit observation) DIAGNOSIS: Normocytic anemia Hypotension Qualifiers: Hypotension type: hypotension due to drug Qualified Code(s): I95.2 - Hypotension due to drugs Pulmonary edema Qualifiers: Chronicity: chronic Qualified Code(s): J81.1 - Chronic pulmonary edema Disposition: ADMITTED INPATIENT 09 Certified Medical Emergency: Emergent Condition: Fair Referrals and Follow-Ups: Vik Delong [Primary Care Provider] - - Critical Care Note This patient required my direct & personal management of CC.: No Attestation - Physician/ KAUSHIK Attestation Patient care was provided by Advanced Practice Provider:: No The physician spent face to face time with patient:: Yes Advanced Practice Provider documentation review:: Supervising physician onsite and consulted in the evaluation and care of this patient. The physician did have a face to face encounter with the patient.
--- NOTE | 2019-11-15 12:14 | ED EKG INTERP ---
This chart was entered by Uyen Gottlieb Scribe, acting as scribe for Oscar Layne DO. EKG Interpretation - EKG Time of EKG reading by physician:: 11:39 EKG Read and Signed by:: Oscar Layne EKG Interpretation (*Must complete 3 of following elements*): Normal Rate: 66 Rhythm: NSR [place]: normal [place] Interval: normal Comments: normal ECG Attestation - Physician/ KAUSHIK Attestation Patient care was provided by Advanced Practice Provider:: No The physician spent face to face time with patient:: Yes Advanced Practice Provider documentation review:: Supervising physician onsite and consulted in the evaluation and care of this patient. The physician did have a face to face encounter with the patient. This chart was documented by the indicated scribe, (Uyen Gottlieb Scribe) and accurately reflects the services I performed and decisions made by Xi patel Michael B., DO, as attested by the provider's signature.
[2019-11-15 12:35] LABS: BASO# 0.06 X1000 (0.0-0.2); BASO% 0.8 % (0.0-0.8); EOS# 0.25 X1000 (0.0-0.7); EOS% 3.3 % (0.0-10.0); HEMATOCRIT 32.9 % (37.0-47.0); HEMOGLOBIN 10.2 g/dL (12.0-16.0); LYMPH% 22.6 % (20.5-51.1); MCH 29.3 PG (27-31); MCV 94.5 FL (81-99); MONO# 0.69 X1000 (0.11-0.59); MONO% 9.2 % (1.7-9.3); MPV 10.1 FL (7.4-10.4); NEUT# 4.82 X1000 (1.4-6.5); NEUT% 64.1 % (42.2-75.2); PLT 189 X1000 (130-400); RBC 3.48 XMIL (4.2-5.4); RDW 14.3 % (11.5-14.5); WBC 7.52 X1000 (4.8-10.8)
[2019-11-15 12:40] LABS: INR 1.04; PROTIME 13.7 Seconds (11.0-16.0)
[2019-11-15 12:41] LABS: PTT 28.3 Seconds (22.3-41.8)
[2019-11-15 12:59] LABS: ALB/GLOB RATIO 1.3; ALBUMIN 3.4 g/dL (3.5-5.0); CREATININE 1.9 mg/dL (0.5-0.9); POTASSIUM 3.8 mmol/L (3.5-5.1); TOTAL BILIRUBIN 0.31 mg/dL (0.20-1.00)
--- NOTE | 2019-11-15 13:05 | EKG Report ---
Test Performed on : 11/15/2019 11:22:47 AM Test Reason : BP PROBLEMS Blood Pressure : / mmHG Vent. Rate : 066 BPM Atrial Rate : 066 BPM P-R Int : 154 ms QRS Dur : 090 ms QT Int : 450 ms P-R-T Axes : 053 006 078 degrees QTc Int : 471 ms Normal sinus rhythm. Low voltage QRS Nonspecific T wave abnormality Abnormal ECG No previous ECGs available Unconfirmed Result
--- NOTE | 2019-11-15 13:45 | Diag Imaging Result Doc PS360 ---
EXAM: CHEST-1 VIEW INDICATION: tachypnea TECHNIQUE: One view COMPARISON: 10/29/2019 FINDINGS: There is mild interstitial thickening with a basilar predominance bilaterally suggesting mild interstitial edema. There is no definite pleural fluid collection or pneumothorax by plain radiograph. There is pulmonary venous congestion similar to the previous study. There is stable cardiomegaly. IMPRESSION: Pulmonary venous congestion and mild interstitial edema. Electronically signed by Sagar Hunter 11/15/2019 1:43 PM
[2019-11-15] MEDS ORDERED: LASIX IV ONE (16:49)
--- NOTE | 2019-11-15 17:26 | HISTORY AND PHYSICAL ---
HISTORY OF PRESENT ILLNESS: Ms. Chadwick is a 74-year-old. She is followed by Dr. Vik Delong. She apparently was doing fine, but she noticed she has had some weak spells and was concerned that her blood pressure was dropping. Went to an ambulatory clinic and blood pressure was systolic down the 90s. Recently had been to the emergency room for congestive heart failure by her report and they put her on a diuretic, torsemide, I believe. She was doing this for swelling. Dr. Delong told her to stop it. She reports that her feet has had a little bit more swelling and at times she feels short of breath. She does wear CPAP at night. Also wears 2 L of oxygen at night as well. Decided to put her into observation because of low blood pressure. She has not had any focal neurologic deficits. No chest pain. Does not have any shortness of breath at this time. No complaints of palpitations. PAST MEDICAL HISTORY: 1. Congestive heart failure. Last known ejection fraction 60% in February 2019, so congestive heart failure with normal ejection fraction. 2. Hypertension. 3. History of coronary artery disease status post myocardial infarction which she reports she was treated medically. This occurred in 2014. 4. History of patent foramen ovale status post closure. 5. COPD, on home oxygen per nasal cannula at night, 2 L per nasal cannula at night. 6. Sleep apnea, wears a CPAP at night. 7. Gastroesophageal reflux disease. 8. History of chronic kidney disease and atrophic right kidney. 9. History of TIAs, denies any residual defects. 10. Depression. 11. Hypothyroidism. 12. Fibromyalgia. 13. Sclerosis. 14. Spinal stenosis. 15. Raynaud syndrome. 16. Sjogren syndrome. 17. Osteoarthritis. 18. Lupus. PAST SURGICAL HISTORY: 1. Cholecystectomy. 2. Hysterectomy. 3. section. 4. PFO closure. 5. Sinus surgery. 6. Thyroidectomy. 7. Breast reduction. 8. Bunionectomy. 9. Back surgery. 10. Cataract surgery. SOCIAL HISTORY: She is retired, . Former smoker. She stated that she smoked a half pack for approximately 40 years and quit over 13 years ago. No known history of past or recent alcohol or illicit drugs. ALLERGIES: Patient allergic to tape, topical allergy, though states she can use paper tape. Allergic to nonsteroidal anti-inflammatories, Augmentin, Levaquin, amoxicillin, Aldactone, pork, shellfish, arrowroot, penicillin, and Biaxin. FAMILY HISTORY: Positive for mother having a history of lymphoma, hypertension, vulva cancer, CVA, possible Sjogren syndrome. The patient has a history of pancreatic cancer. Reports that her sister has had surgeries for lipomas. REVIEW OF SYSTEMS: General: She does not report any fever or chills or change in her weight. She has had more swelling in her lower extremities. HEENT: No change in visual or hearing acuity. Neck: No complaints of neck pain or adenopathy. Respiratory: No increased work of breathing or dyspnea. Cardiovascular: No chest pain or tachy palpitation. GI and : No gross hematuria or dysuria. Musculoskeletal/Neurologic: No focal changes or complaints. OBJECTIVE: General: She is awake, alert, pleasant. Vital signs: Temperature 98.2 degrees, pulse 70, respirations 20, blood pressure 108/48. O2 sats 99%. Weight 201 pounds. Height 5 feet. HEENT: Pupils are equal and round. Neck: Supple. No sign of thyromegaly or adenopathy. Lungs: Clear in all lung jones. Cardiovascular: Regular rhythm and rate without murmur or S3. Abdomen: Soft. Skin: Warm and dry. LABORATORY: White blood cell count 7,520, hematocrit is 32, platelet count is 189,000. Sodium was 140, potassium 3.8, chloride 99, BUN is 29, creatinine 1.9, total protein is 6.0, albumin is 3.4. Protime is 13, PTT is 28. Chest x-ray: Pulmonary venous congestion, mild interstitial edema. ASSESSMENT AND PLAN: Pulmonary venous hypertension. Appears to have congestive heart failure with normal ejection fraction. Apparently has a history of a patent foramen ovale closure and I am not sure when that was. She is followed by Dr. Chadwick, her [employer] Agent in [place]. It appears that she had some hypotension. In looking at her home medications, we will stop her diuretic. But her x-ray seems to suggest some pulmonary venous hypertension. So I am going to ask Cardiology to look at her. We will put her in to observation and see if they have any suggestions. We will cut her Coreg down from 25 mg p.o. b.i.d. to 12.5 mg twice a day and see if this will help. Note, she is on Cymbalta and Plaquenil. She is also taking Imdur 30 mg daily. She is on Synthroid. We will check her T4, TSH. I think we can cut her losartan down to 50 mg p.o. daily and this will allow us to diurese her some. We will put her on Lasix 40 mg IV q.12. We will watch her serum creatinine; it is 1.9. I see where it was 1.0 on October 29, 2019. She has some acute kidney injury so I might wait on the Lasix and see what Cardiology wants to do. We will decrease her Coreg and decrease her losartan. cc: Orville Benavides MD
[2019-11-15] MEDS ORDERED: TYLENOL PO PRN (17:46)
[2019-11-15] MEDS ORDERED: ZOFRAN IV PRN (17:46)
[2019-11-15] MEDS: DUONEB (A & A) INH PRN (21:38)
[2019-11-15] MEDS: CYMBALTA PO SCH (22:24)
[2019-11-16] MEDS: SYNTHROID PO SCH (06:21)
--- NOTE | 2019-11-16 06:34 | Diag Imaging Result Doc PS360 ---
EXAM: CHEST-PORTABLE HISTORY: follow up TECHNIQUE: Single view COMPARISON: 11/15/2019 FINDINGS: The lungs are well expanded. The heart is enlarged. Mild vascular prominence. No consolidation. There are tiny effusions. IMPRESSION: Stable chest Electronically signed by Lukasz Barraza 11/16/2019 6:31 AM
--- NOTE | 2019-11-16 07:28 | EKG Report ---
Test Performed on : 11/16/2019 06:51:15 AM Test Reason : follow up Blood Pressure : / mmHG Vent. Rate : 071 BPM Atrial Rate : 071 BPM P-R Int : 170 ms QRS Dur : 096 ms QT Int : 456 ms P-R-T Axes : 055 031 076 degrees QTc Int : 495 ms Normal sinus rhythm. Nonspecific T wave abnormality Prolonged QT Abnormal ECG When compared with ECG of 15-NOV-2019 11:22, (Unconfirmed) No significant change was found Confirmed by Garcia Steve MD ([id number]) on 11/17/2019 6:11:02 PM
[2019-11-16 07:48] LABS: BASO# 0.05 X1000 (0.0-0.2); BASO% 0.8 % (0.0-0.8); EOS# 0.23 X1000 (0.0-0.7); EOS% 3.8 % (0.0-10.0); HEMATOCRIT 31.3 % (37.0-47.0); HEMOGLOBIN 9.7 g/dL (12.0-16.0); IMM GRAN# 0.02 X1000 (0.0-0.04); IMM GRAN% 0.3 % (0.0-0.5); LYMPH# 1.47 X1000 (1.2-3.4); LYMPH% 24.6 % (20.5-51.1); MCH 29.7 PG (27-31); MCV 95.7 FL (81-99); MONO# 0.53 X1000 (0.11-0.59); MONO% 8.9 % (1.7-9.3); MPV 10.3 FL (7.4-10.4); NEUT# 3.68 X1000 (1.4-6.5); NEUT% 61.6 % (42.2-75.2); PLT 170 X1000 (130-400); RBC 3.27 XMIL (4.2-5.4); RDW 14.2 % (11.5-14.5); WBC 5.98 X1000 (4.8-10.8)
[2019-11-16] MEDS: PREDNISONE PO SCH ×2 (08:02→10:00)
[2019-11-16] MEDS: ASPIRIN EC PO SCH (08:02)
[2019-11-16] MEDS: IMDUR PO SCH (08:02)
[2019-11-16] MEDS: SPIRIVA INH SCH (08:19)
[2019-11-16] MEDS: DUONEB (A & A) INH PRN ×3 (08:20→19:55)
[2019-11-16 08:40] LABS: ALB/GLOB RATIO 1.3; ALBUMIN 3.3 g/dL (3.5-5.0); CALCIUM 8.7 mg/dL (8.8-10.2); CREATININE 1.5 mg/dL (0.5-0.9); MAGNESIUM 1.5 mg/dL (1.5-2.7); POTASSIUM 3.2 mmol/L (3.5-5.1); TOTAL BILIRUBIN 0.4 mg/dL (0.20-1.00); TOTAL PROTEIN 5.8 g/dL (6.3-8.3)
[2019-11-16 08:46] LABS: FREE T4 1.13 ng/dL (0.93-1.70); TSH 1.42 uIUmL (0.27-4.20)
[2019-11-16] MEDS: POTASSIUM CHLORIDE 20 MEQ/SWI 20 MEQ/100 ML IVPB IV SCH ×2 (13:01→14:55)
[2019-11-16] MEDS: PRILOSEC PO SCH (13:02)
--- NOTE | 2019-11-16 14:02 | PROGRESS NOTE ---
DATE: 11/16/2019 INTERVAL HISTORY: The patient with no further hypotension. Still endorsing a little but of generalized weakness, but no other complaints. No dyspnea currently. Clarified with patient that she has been on prednisone in the past but was not actively taking prednisone at the time of admission. Patient does also complain of some reflux symptoms. REVIEW OF SYSTEMS: Twelve point review of systems negative except as per interval history. LABS: WBC 5.9, hemoglobin 9.7, hematocrit 31.3, platelets 170,000. Sodium 142, potassium 3.2, BUN 28, creatinine 1.5, glucose 99. Troponin 24, which is essentially unchanged. BNP 365. IMAGING: Chest x-ray with essentially unchanged with only mild vascular prominence and tiny effusions. VITALS: T-max 98.6 degrees, pulse 89, respirations 17, blood pressure 142/62, O2 saturation 98% on 2 L by nasal cannula. PHYSICAL EXAMINATION: General: No acute distress. Vitals: As above. HEENT: Normocephalic, atraumatic. Moist mucous membranes. No cervical adenopathy. Cardiovascular: Regular rate and rhythm. No murmurs noted. Pulmonary: Essentially clear to auscultation bilaterally with only very minimal bibasilar crackles. Abdomen: Soft, nontender, nondistended. Bowel sounds positive. Extremities: Peripheral pulses intact. Trace edema bilaterally. No clubbing or cyanosis. Neurologic: Cranial nerves grossly intact. Mild global weakness but no focal deficits. Psychiatric: Normal mood and affect. Awake, alert, oriented x3. ASSESSMENT AND PLAN: 1. Acute kidney injury, likely over-diuresis. Patient has been on several diuretics over the last few weeks, but most recently on Bumex 1 mg daily. The patient with creatinine 1.9 on admission. With some gentle hydration on admission and holding of her diuretic appears to have come down to 1.5. Of note, a dose of Lasix is was ordered on admission, but it appears to have been discontinued before being given. Exact baseline kidney function not entirely certain but has been as low as 1.0 within the last couple months. We will hold off on further fluids given diastolic congestive heart failure, but will also hold diuresis and encourage p.o. fluid intake. 2. Hypotension, likely over-diuresis as above. Improved with a little bit of fluid overnight. Holding diuretics. Continue to hold diuretics and monitor. 3. Chronic diastolic congestive heart failure. Mildly elevated BNP. Some mild congestion on her x-ray, but nothing to suggest heart failure exacerbation. We will continue her home Coreg, but hold the losartan given likely kidney injury and hold her diuretic. On discharge will likely restart diuretic, but at a lower dose. She was on 1 Bumex 1 mg daily. We will likely discharge on 0.5 mg daily or 1 mg every other day. 4. Gastroesophageal reflux disease. Restart home Prilosec. 5. Coronary artery disease, continue home aspirin. 6. Hypothyroidism, continue home Synthroid. 7. Hypokalemia, will replete and monitor. DISPOSITION: If the patient's creatinine continues to improve and no other issues develop then may be able to go home tomorrow on a lower dose of diuretic.
[2019-11-16] MEDS ORDERED: KLOR-CON PO ONE (14:36)
--- NOTE | 2019-11-16 18:55 | CONSULTATION ---
DATE OF CONSULTATION: 11/16/2019 IMPRESSION: 1. Recent low blood pressure following additional diuretic therapy with addition of single dose of booster diuretic presumably metolazone. Suspect intravascular volume depletion likely culprit and this seems to be improving. 2. Chronic lower extremity edema, which is probably multifactorial related to patient's morbid obesity. Probable venous insufficiency and some tendency for right-sided congestive heart failure related to obstructive sleep apnea. 3. Atherosclerotic coronary disease. The patient has a history of small myocardial infarction in 2015 with coronary angiography at that time reportedly demonstrating occlusion of a small obtuse marginal. Medical management recommended. Left ventricular ejection fraction is normal. Patient continues without angina. 4. History of cryptogenic cerebrovascular accident, which recurred and the patient ultimately had percutaneous closure of patent foramen ovale. 5. Morbid obesity. 6. Chronic obstructive pulmonary disease. 7. Obstructive sleep apnea. 8. Chronic kidney disease with atrophic right kidney. 9. Fibromyalgia. 10. Sjogren syndrome. RECOMMENDATIONS: 1. Continue current cardiovascular regimen. But would avoid use of metolazone for treatment of her chronic edema. 2. Conservative cardiovascular management overall. It appeared to me that she could go home soon to be managed as an outpatient. HISTORY: This 74-year-old white female with past history of morbid obesity, atherosclerotic coronary disease as outlined above, previous closure of patent foramen ovale for cryptogenic cerebrovascular accident, COPD, chronic edema, obstructive sleep apnea, fibromyalgia, and chronic inflammatory disorders was admitted because of lightheadedness, weakness and low blood pressure. She was recently hospitalized a few weeks ago for CHF and was switched from Bumex to torsemide 20 mg p.o. daily. She relates that she went into urgent care this past Friday given that she felt some swelling in her abdomen. She was given a single dose of booster diuretic, presumably metolazone. She equivocates as to whether she had much of a vigorous diuresis thereafter. However, she had noticed that she was having tendency for low blood pressure. Because of this, she came in for evaluation. She has no chest pain or angina. She has chronic dyspnea symptoms. PAST MEDICAL HISTORY: 1. Congestive heart failure with preserved left ventricular ejection fraction which is probably multifactorial and in a large part related to right-sided heart failure as well as left ventricular diastolic dysfunction. 2. Chronic tendency for edema partly related to problem #1 as well as morbid obesity and probable venous insufficiency. 3. Atherosclerotic coronary disease with previous small myocardial infarction in 2015. Coronary angiography reportedly demonstrated small obtuse marginal occluded. Left ventricle ejection fraction normal. Medical management recommended. 4. History recurrent cryptogenic cerebrovascular accident despite dual antiplatelet therapy. She is status post percutaneous closure of patent foramen ovale. 5. Chronic obstructive pulmonary disease. She is on chronic home oxygen, usually at night. 6. Obstructive sleep apnea. 7. Gastroesophageal reflux disease. 8. History of chronic kidney disease. An atrophic right kidney. 9. Depression. 10. Hypothyroidism. 11. Fibromyalgia. 12. Spinal stenosis. 13. Chronic inflammatory disorders with reported history of Raynaud syndrome, Sjogren syndrome, osteoarthritis, and lupus. PAST SURGICAL HISTORY: Includes cholecystectomy hysterectomy, section, PFO closure, unspecified sinus surgery, thyroidectomy, breast reduction surgery, bunionectomy, unspecified back surgery and cataract surgery. She has multiple drug allergies as listed. MEDICATIONS PRIOR TO ADMISSION: As listed. SOCIAL HISTORY: She is retired. She is a . She previously smoked in the past, smoking approximately half pack cigarettes for 40 years, but quit 13 years ago. She does not use alcohol. FAMILY HISTORY: Negative for premature coronary disease. REVIEW OF SYSTEMS: Pulmonary: Noteworthy for some chronic tendency for dyspnea. There has been no cough. Gastrointestinal: Noncontributory. Constitutional: Noncontributory. Remainder of review of systems negative/noncontributory with 14 total systems reviewed. PHYSICAL EXAMINATION: A morbidly obese, older, white female in no distress on supplemental oxygen per nasal cannula.Vital signs: Blood pressure 131/62, heart rate 64, oxygen saturation 96 to 98 percent on nasal cannula oxygen at 2 L/minute. HEENT: Extraocular movements intact. Mucous membranes are moist. Neck: Supple without discernible jugular distention. There are no carotid bruits. Chest: Clear to auscultation bilaterally. Cardiac Exam: Reveals a regular rate and rhythm without appreciable murmur or gallop. Abdomen: Soft. Bowel sounds normal. Extremities: Demonstrate mild pretibial edema. Left slightly greater than right with some chronic venous stasis changes. Neurologic: Reveals her to be alert and fully oriented. Speech is fluent. Moves all 4 extremities equally well. LABORATORY DATA: Includes a white blood cell count of 5.98, hematocrit 31.3, hemoglobin 9.7, platelet count 170,000. Sodium 142, potassium 3.2, chloride 101, carbon dioxide 30, BUN 28, creatinine 1.5, glucose 99. Troponin T high sensitivity 22 and follow-up troponin T high sensitivity 24 and 24. Pro B-natriuretic peptide level 365. Albumin 3.3. Initial CPK 69. Followup CPK is 72 and 82. TSH 1.42. Albumin 3.3. PERTINENT DATA: Twelve lead EKG demonstrates normal sinus rhythm and diffuse nonspecific T-wave flattening. cc: Ian Hall MD
[2019-11-16] MEDS: CYMBALTA PO SCH (21:34)
[2019-11-16] MEDS: COREG PO SCH (21:34)
[2019-11-17] MEDS: SYNTHROID PO SCH (06:11)
[2019-11-17] MEDS: PRILOSEC PO SCH (06:11)
[2019-11-17] MEDS: SPIRIVA INH SCH (07:45)
[2019-11-17] MEDS ORDERED: COZAAR PO SCH (09:00)
[2019-11-17] MEDS ORDERED: PLAQUENIL PO SCH (09:00)
[2019-11-17] MEDS: ASPIRIN EC PO SCH (09:20)
[2019-11-17] MEDS: IMDUR PO SCH (09:20)
[2019-11-17] MEDS: COREG PO SCH (09:20)
[2019-11-17] MEDS ORDERED: BUMEX PO SCH (10:45)
[2019-11-17] MEDS ORDERED: MIRALAX PO SCH (11:45)
[2019-11-17 11:53] VITALS: BP 134/67
[2019-11-17 11:57] LABS: BASO# 0.04 X1000 (0.0-0.2); BASO% 0.6 % (0.0-0.8); EOS# 0.23 X1000 (0.0-0.7); EOS% 3.5 % (0.0-10.0); HEMATOCRIT 35.2 % (37.0-47.0); HEMOGLOBIN 11.1 g/dL (12.0-16.0); IMM GRAN# 0.02 X1000 (0.0-0.04); IMM GRAN% 0.3 % (0.0-0.5); LYMPH# 1.36 X1000 (1.2-3.4); LYMPH% 20.8 % (20.5-51.1); MCHC 31.5 g/dL (33-37); MCV 95.1 FL (81-99); MONO# 0.52 X1000 (0.11-0.59); MONO% 7.9 % (1.7-9.3); MPV 10.2 FL (7.4-10.4); NEUT# 4.38 X1000 (1.4-6.5); NEUT% 66.9 % (42.2-75.2); PLT 213 X1000 (130-400); RDW 14.3 % (11.5-14.5); WBC 6.55 X1000 (4.8-10.8)
[2019-11-17 13:01] LABS: CALCIUM 9.6 mg/dL (8.8-10.2); CREATININE 1.2 mg/dL (0.5-0.9); POTASSIUM 3.8 mmol/L (3.5-5.1)
--- NOTE | 2019-11-18 09:30 | DISCHARGE SUMMARY ---
ADMISSION DATE: 11/17/2019 DISCHARGE DATE: 11/17/2019 CONSULT: Cardiology, Dr. Hall. DISCHARGE DIAGNOSES: 1. Dehydration. 2. Acute kidney injury on likely chronic kidney disease 3. 3. Hypotension. 4. Chronic diastolic congestive heart failure. 5. Gastroesophageal reflux disease. 6. Coronary artery disease. 7. Hypothyroidism. 8. Hypokalemia. HISTORY AND HOSPITAL COURSE: The patient presented initially complaining of hypotension with generalized weakness. On initial evaluation, she was found to be hypotensive with blood pressure of 99/50. She was also noted to have acute kidney injury with creatinine 1.9. The patient has had several changes to her diuretics over the last few weeks and may have also gotten an additional dose of some metolazone on top of her usual diuretic. Volume depletion/dehydration was strongly suspected. She was given gentle fluids despite minimal vascular congestion seen on initial x-ray. The patient did seem to improve with initial fluid bolus. Blood pressure improved the next morning and over the course of the next day. On the day of discharge, she was running anywhere from 118/47 to 162/56 and no longer symptomatic. Her kidney function also improved with gentle hydration from creatinine of 1.9 to a creatinine of 1.2, which was based on previous records felt to be her likely baseline. BNP was only mildly elevated at 365. Oxygen was fairly reasonable throughout. On the day of discharge, it had a slight dip down to 92 on a couple liters of oxygen, so we went ahead and restarted her diuretic at a lower dose, but she was able to be weaned off oxygen entirely with a good oxygen saturation prior to discharge. We discussed with the patient the need to weigh herself daily and keep an eye on her swelling. Especially since she only has 1 kidney, it is likely to be a very fine line between keeping her dry enough to avoid significant swelling and dyspnea issues but not so dry that her blood pressure drops or kidney function declines. I discussed the need with her to stay in close contact with her doctors. If she requires frequent adjustments in her diuretic, then it might be worth getting her in with the [facility] at [place] since her regular net ui developer is over there anyway. She did have some mildly increased swelling on the day of discharge, which was part of what prompted us to go ahead and restart her diuretic, but it was fairly mild at 1+ edema bilaterally. Her lungs were clear. Oxygenation was good. Her other chronic comorbidities were stable during this hospitalization. DISCHARGE VITAL SIGNS: Temperature 97.8 degrees, pulse 68, respirations 16, blood pressure 134/67, and O2 saturation 98% on room air. DISCHARGE DIET: Cardiac, low salt, with 2 liters volume restriction. DISCHARGE MEDICATIONS: Cymbalta 60 mg p.o. every night at bedtime, albuterol nebulizer as needed, Coreg 25 mg p.o. b.i.d., Imdur 30 mg p.o. daily, potassium as previously prescribed, nitroglycerin sublingual p.r.n., Plaquenil 200 mg p.o. as previously prescribed, Singulair 10 mg p.o. daily, Spiriva 1 puff inhaled daily, aspirin 81 mg p.o. daily, Synthroid 175 mcg p.o. daily. B12 and vitamin D3 as previously prescribed. Ultram 50 mg p.o. every 8 hours as needed, Ativan 0.5 mg p.o. b.i.d. as needed, Bumex 0.5 mg p.o. daily, MiraLAX 17 grams p.o. daily as needed. FOLLOWUP AND PLAN: Patient discharging home on a lower dose of her diuretic. The patient to weigh herself daily and stay in close contact with her PCP and/or net ui developer as additional tweaks to her diuretic regimen are likely to be needed. TIME SPENT: Greater than 30 minutes spent arranging discharge and counseling the patient.
== END 2019-11-17 15:57 | disposition home health service (06) | DRG 683 ==
LOC: EDIPHOLD 11:10 → ED 11:10 → SUATTDRO 17:12 → 3N 19:39
PROVIDERS: ATTEND Internal Medicine

== ENCOUNTER 2019-12-13 15:23 | Inpatient (IN) ==
--- NOTE | 2019-12-13 15:57 | EKG Report ---
Test Performed on : 12/13/2019 3:31:05 PM Test Reason : CHEST PAIN Blood Pressure : / mmHG Vent. Rate : 061 BPM Atrial Rate : 061 BPM P-R Int : 160 ms QRS Dur : 090 ms QT Int : 490 ms P-R-T Axes : 064 014 076 degrees QTc Int : 493 ms Normal sinus rhythm. Low voltage QRS Nonspecific T wave abnormality Abnormal ECG When compared with ECG of 16-NOV-2019 06:51, No significant change was found Unconfirmed Result
--- NOTE | 2019-12-13 16:08 | PROVIDER DOCUMENTATION ---
HPI-General Adult - General Chief Complaint: Shortness of Breath Stated Complaint: DIFFICULTY BREATHING Time Seen by Provider: 12/13/19 15:25 Source: patient Allergies/Adverse Reactions: Patient Allergies Allergy/AdvReac Type Severity Reaction Status Date / Time adhesive tape Allergy ITCHING Verified 11/15/19 11:46 amoxicillin Allergy SHORTNESS Verified 11/15/19 11:46 OF BREATH clarithromycin [From Biaxin] Allergy Unknown Verified 11/15/19 11:46 clavulanic acid Allergy SHORTNESS Verified 11/15/19 11:46 [From Augmentin] OF BREATH levofloxacin [From Levaquin] Allergy Unknown Verified 11/15/19 11:46 NSAIDS (Non-Steroidal Allergy Unknown Verified 11/15/19 11:46 Anti-Inflamma Penicillins Allergy Unknown Verified 11/15/19 11:46 pork derived (porcine) Allergy Unknown Verified 11/15/19 11:46 shellfish derived Allergy Unknown Verified 11/15/19 11:46 spironolactone Allergy Unknown Verified 11/15/19 11:46 [From Aldactone] Home Medications: Home Medication List Medication Instructions Recorded Confirmed Last Taken Type Duloxetine [Cymbalta] 60 mg PO QHS 11/26/17 11/15/19 11/15/19 History Isosorbide Mononitrate E.r. [Imdur] 30 mg PO DAILY 11/26/17 11/15/19 11/15/19 History Levothyroxine Sodium [Synthroid] 175 microgm PO QAM 11/26/17 11/15/19 11/15/19 History Montelukast Sodium [Singulair] 10 mg PO QAM 11/26/17 11/15/19 11/15/19 History Potassium Chloride [Klor-Con] 20 meq PO QAM 11/26/17 11/15/19 11/15/19 History Tramadol [Ultram] 50 mg PO Q8HR PRN #20 tab 12/06/17 11/15/19 1 Month Ago Rx ~06/24/19 Nitroglycerin 0.4 mg SL PRN PRN 03/30/18 11/15/19 3 Months Ago History ~04/24/19 Albuterol [Albuterol Neb] 2.5 mg INH Q6H PRN PRN 10/23/19 11/15/19 Unknown History Aspirin [Basin Aspirin EC] 81 mg PO DAILY 10/23/19 11/15/19 11/15/19 History Carvedilol [Coreg] 25 mg PO BID 10/23/19 11/15/19 11/15/19 History Cholecalciferol (Vitamin D3) 2,000 unit PO DAILY 10/23/19 11/15/19 11/15/19 History [Vitamin D3] Cyanocobalamin (Vitamin B-12) 2,000 mcg PO DAILY 10/23/19 11/15/19 11/15/19 History [Vitamin B-12] Hydroxychloroquine [Plaquenil] 200 mg PO DIRECTED 10/23/19 11/15/19 11/15/19 History Tiotropium [place] Inhaler 1 puff INH RTDAILY 10/23/19 11/15/19 11/15/19 History [Spiriva] Lorazepam [Ativan] 0.5 mg PO BID PRN #20 tab 10/29/19 Unknown Rx Polyethylene Glycol 3350 [Miralax] 17 gm PO DAILY #30 powd.pack 10/29/19 11/15/19 11/15/19 Rx Bumetanide [Bumex] 0.5 mg PO DAILY #45 tab 11/17/19 Unknown Rx - History of Present Illness -Gen Adult Nature of Presenting Problems: [id number] presents to the ER with c/o SOB. She reports that she was seen by an urgent care earlier in the weak for the problem and was called this afternoon due to "elevated lab values that may mean a blood clot in her lungs." She was sent here for evaluation. She reports she has a history of CHF, reports incre ased edema and weight gain in the last week. She also has a hx of HTN, [place], COPD, and a CVA. She reports she is not on any blood thinners at this time. She is dyspneic on exertion, O2 is 97% at rest. Location of Pain/Injury: reports: chest Pain Radiation: reports: no radiation Quality of Pain: reports: pressure Severity: reports: mild Onset/Duration: reports: other (greater than a month, worse in the last week) Timing: reports: getting worse Associated Symptoms: reports: shortness of breath. denies: cough, fever/chills Similar Symptoms Previously?: No Recently seen or treated by another doctor?: No Review of Systems - Adult - REVIEW OF SYSTEMS - ADULT Constitutional: reports: see HPI. denies: chills, fever Eyes: reports: no symptoms reported Ears, Nose, Mouth & Throat: reports: no symptoms reported Cardiovascular: reports: see HPI, edema, orthopnea, palpitations Respiratory: reports: see HPI, dyspnea on exertion, shortness of breath. denies: wheezing Gastrointestinal: reports: no symptoms reported. denies: abdominal pain, diarrhea, nausea, vomiting Genitourinary: reports: no symptoms reported Musculoskeletal: reports: no symptoms reported Integumentary: reports: no symptoms reported Neurological: reports: no symptoms reported Psychiatric: reports: no symptoms reported Endocrine: reports: no symptoms reported Hematologic/Lymphatic: reports: no symptoms reported Allergic/Immunologic: reports: no symptoms reported All Other Systems: Reviewed and Negative Past History - Adult - PAST MEDICAL HISTORY-ADULT Review of Records: reports: Old Records Reviewed, Nursing Assessment Review, Medications Reviewed, Social history reviewed & non-contributory. Major Childhood Illnesses: reports: denies history Cardiovascular: reports: CHF, HTN, [place] Respiratory: reports: COPD, sleep apnea Gastrointestinal: reports: GERD Obstetrical/Gynecological: reports: denies history Genitourinary: reports: denies history Musculoskeletal: reports: denies history Neurological: reports: CVA, TIA Psychiatric: reports: depression Endocrine/Immune: reports: denies history, thyroid disorder Other Conditions: reports: denies history, other (fibromylegia) - PRIOR SURGERIES/PROCEDURES Surgical/Procedure History: reports: reviewed, not pertinent, cholecystectomy, hysterectomy, - IMMUNIZATION STATUS Childhood Immunizations: See Nurse Assessment Flu Vaccine: See Nurse Assessment - FAMILY HISTORY Family History: reviewed, not pertinent - SOCIAL HISTORY Smoking: denies Substance Use: denies Living Situation: family Physical Exam-General - PHYSICAL EXAM-ADULT Initial Vital Signs Reviewed: Yes - CONSTITUTIONAL General Appearance: alert, mild distress - EYES Eyes: PERRL/EOMI, pink conjunctivae - HEAD, EARS, NOSE, MOUTH & THROAT HENMT: normocephalic/atraumatic, TMs normal - NECK Neck: full range of motion, supple - RESPIRATORY Respiratory: lungs clear, normal breath sounds - CARDIOVASCULAR Cardiovascular: regular rate, rhythm - GASTROINTESTINAL (ABDOMEN) Abdominal Exam: non tender, soft - MUSCULOSKELETAL Extremity: normal range of motion, normal gait - SKIN Integumentary: normal color, warm/dry - NEUROLOGIC Neurologic: grossly normal - PSYCHIATRIC Psych/Mental Status: normal mood/affect Progress - PLAN OF CARE/RESULTS Progress/Plan/Lab Results: Vital Signs - 8 hr 12/13/19 15:45 Temperature 98.4 F Pulse Rate 60 Respiratory Rate 20 Blood Pressure 148/69 O2 Sat by Pulse Oximetry 97 Orders Category Date Time Status Nursing- Obtain EKG ONCE Care 12/13/19 15:55 Active CHEST-2 VIEWS [RAD] Stat Exams 12/13/19 15:55 Ordered CBC WITH ELECTRONIC DIFF [HEME] Stat Lab 12/13/19 15:55 Uncollected CK PROFILE [SP CHEM] Stat Lab 12/13/19 15:55 Uncollected CK TOTAL [CHEM] Stat Lab 12/13/19 15:55 Uncollected COMPREHENSIVE METABOLIC PANEL [CHEM] Stat Lab 12/13/19 15:55 Uncollected D-DIMER [COAG] Stat Lab 12/13/19 15:54 Uncollected PRO B-NATRIURETIC PEPTIDE Stat Lab 12/13/19 15:55 Ordered PROTIME WITH INR [COAG] Stat Lab 12/13/19 15:55 Ordered PTT [COAG] Stat Lab 12/13/19 15:55 Ordered TROPONIN T HIGH SENSITIVITY Stat Lab 12/13/19 15:55 Uncollected UA NIMS W/REFLEX CULT [URINALYSIS] Stat Lab 12/13/19 15:55 Uncollected URINE DRUG SCREEN PL Stat Lab 12/13/19 15:55 Uncollected EKG [EKG] Stat Ther 12/13/19 15:55 Draft Result Diagrams: 12/13/19 16:47 12/13/19 16:47 - EKG 1 Time of EKG reading by physician:: 15:31 EKG Read and Signed by:: Steven Hernandez EKG Interpretation (*Must complete 3 of following elements*): Abnormal Rate: 61 Rhythm: NSR [place]: normal QRS: normal [place] Interval: normal ST Wave: normal Prior EKG Comparison: no prior EKG - XRAY 1 XRAY Study: Chest Impression: See EMR Report (FINDINGS: The lungs are hyperexpanded. Likely scarring in the left base. The heart is n enlarged. The vessels are not distended. There are no infiltrates. No pleural effusions. IMPRESSION: Mild cardiomegaly) - CT/MRI 1 CT Study: Angiogram (pulmonary arteries) Impression: See EMR Report ( FINDINGS: No pleural effusions. No aortic aneurysm or dissection. Normal opacification of the pulmonary arteries and their branches. No cardiomegaly. No enlarged lymph nodes. No consolidation. There is nodular scarring in the right middle lobe. No bronchiectasis. 7 mm pleural-based nodule in the left lower lobe. IMPRESSION: No pulmonary emboli.) - CONSULTS/PCP/HOSPITALIST Notification #1 *Consult/PCP/Hospitalist*: Dr Vernon Time Discussed: 20:37 Reason/Comments: COPD exacerbation, dyspnea Consult Disposition: Admit Departure - Departure Date of Disposition Decision: 12/13/19 Time of Disposition Decision: 20:36 DIAGNOSIS: Dyspnea, COPD exacerbation Disposition: ADMITTED INPATIENT 09 Certified Medical Emergency: Emergent Condition: Critical Additional Instructions: ED Follow Up Instructions: You have been treated by a care provider in the Emergency Department. These instructions are being provided to you so you can have an understanding of how to care for yourself upon discharge. Upon discharge from the Emergency Department, you are responsible for making arrangements for follow-up care by a physician of your choice. Take all prescribed medications as directed. Return to the Emergency Department immediately for any new or worsening symptom s. You may call the Physician Referral phone number at [phone] to obtain a list of Physicians who are taking new patients. Referrals and Follow-Ups: Vik Delong [Primary Care Provider] - - Critical Care Note This patient required my direct & personal management of CC.: No Attestation - Physician/ KAUSHIK Attestation Patient care was provided by Advanced Practice Provider:: Yes Advanced Practice Provider:: Viraj Tripp Advanced Practice Provider documentation review:: The Mid-level provider documentation, treatment plan and medical decision making was reviewed by the physician who agrees with all treatment and medical decision making by the [facility]. The physician spent face to face time with patient:: No Advanced Practice Provider documentation review:: Supervising physician onsite and consulted in the evaluation and care of this patient. The physician did not have a face to face encounter with the patient.
--- NOTE | 2019-12-13 16:16 | Diag Imaging Result Doc PS360 ---
EXAM: CHEST-2 VIEWS HISTORY: cp TECHNIQUE: Two views COMPARISON: 11/16/2019 FINDINGS: The lungs are hyperexpanded. Likely scarring in the left base. The heart is n enlarged. The vessels are not distended. There are no infiltrates. No pleural effusions. IMPRESSION: Mild cardiomegaly Electronically signed by Lukasz Barraza 12/13/2019 4:14 PM
[2019-12-13 17:15] LABS: BASO% 1.1 % (0.0-0.8); EOS# 0.24 X1000 (0.0-0.7); EOS% 2.6 % (0.0-10.0); HEMATOCRIT 35.9 % (37.0-47.0); IMM GRAN# 0.03 X1000 (0.0-0.04); IMM GRAN% 0.3 % (0.0-0.5); LYMPH% 22.8 % (20.5-51.1); MCH 29.1 PG (27-31); MCHC 30.6 g/dL (33-37); MONO# 0.94 X1000 (0.11-0.59); MONO% 10.2 % (1.7-9.3); MPV 10.5 FL (7.4-10.4); NEUT# 5.79 X1000 (1.4-6.5); PLT 252 X1000 (130-400); RBC 3.78 XMIL (4.2-5.4); RDW 14.7 % (11.5-14.5)
[2019-12-13 17:19] LABS: INR 1.04; PROTIME 13.8 Seconds (11.0-16.0)
[2019-12-13 17:20] LABS: PTT 26.8 Seconds (22.3-41.8)
[2019-12-13 17:31] LABS: ALB/GLOB RATIO 1.9; ALBUMIN 4.2 g/dL (3.5-5.0); CALCIUM 9.1 mg/dL (8.8-10.2); CREATININE 1.2 mg/dL (0.5-0.9); TOTAL BILIRUBIN 0.35 mg/dL (0.20-1.00); TOTAL PROTEIN 6.4 g/dL (6.3-8.3)
[2019-12-13 18:43] LABS: URINE SOURCE CLEAN CATCH
[2019-12-13 19:07] LABS: BILIRUBIN URINE NEGATIVE (NEGATIVE); BLOOD URINE NEGATIVE (NEGATIVE); COLOR STRAW; GLUCOSE URINE NEGATIVE (NEGATIVE); KETONE URINE NEGATIVE (NEGATIVE); LEUKOCYTES URINE NEGATIVE (NEGATIVE); NITRITE URINE NEGATIVE (NEGATIVE); PH URINE 6.5; PROTEIN URINE NEGATIVE (NEGATIVE); SP GRAVITY URINE 1.007; TURBIDITY URINE CLEAR (CLEAR); UROBILINOGEN URINE NORMAL (NORMAL)
[2019-12-13 19:08] LABS: UR EPITHELIAL CELLS <10 /HPF (<10); URINE BACTERIA NEGATIVE /HPF; URINE RBC <10 /HPF (<10); URINE WBC <10 /HPF (<10)
--- NOTE | 2019-12-13 20:20 | Diag Imaging Result Doc PS360 ---
EXAM: CT ANGIOGRM PULMONARY ARTERIES HISTORY: elevated D-Dimer TECHNIQUE: CT chest with intravenous contrast. Pulmonary arterial protocol with MIP images. COMPARISON: 07/25/2019 FINDINGS: No pleural effusions. No aortic aneurysm or dissection. Normal opacification of the pulmonary arteries and their branches. No cardiomegaly. No enlarged lymph nodes. No consolidation. There is nodular scarring in the right middle lobe. No bronchiectasis. 7 mm pleural-based nodule in the left lower lobe. IMPRESSION: No pulmonary emboli. This exam was performed using automated exposure control, adjustment of mA or kV according to patient size, and/or use of iterative reconstruction technique. Electronically signed by Lukasz Barraza 12/13/2019 8:17 PM
[2019-12-13] MEDS ORDERED: SOLU-MEDROL IV ONE (20:36)
[2019-12-13 20:55] LABS: ALLEN TEST YES; BE 3.4 mmoll (-3.0-3.0); BLOOD TYPE ARTERIAL; HCO3-(ACT) 27.6 mmoll (20.0-26.0); METHB 0.5 % (0.0-1.5); O2HB 98.3 % (95.0-99.0); PO2(98.6) 205 mmHg (60-100); SAMPLE BLOOD; SAO2 100.4 % (95.0-100.0); THB 10.5 g/dL (11.5-17.4); pH(98.6) 7.34 (7.35-7.45)
[2019-12-13 20:56] LABS: MODALITY CANNULA
[2019-12-13 20:57] LABS: PCO2(98.6) 56 mmHg (35-45)
[2019-12-13] MEDS ORDERED: DUONEB (A & A) INH PRN (22:22)
[2019-12-13] MEDS: DUONEB (A & A) INH SCH ×2 (23:30→23:56)
[2019-12-14] MEDS ORDERED: SOLU-MEDROL IV SCH (05:00)
[2019-12-14] MEDS: ULTRAM PO PRN (05:20)
[2019-12-14] MEDS: SYNTHROID PO SCH ×2 (05:21→06:28)
[2019-12-14] MEDS ORDERED: DUONEB (A & A) INH PRN (05:46)
--- NOTE | 2019-12-14 06:13 | HISTORY AND PHYSICAL ---
CHIEF COMPLAINT: Abnormal test result. HISTORY OF PRESENT ILLNESS: Ms. Susan Chadwick is a 74-year-old female, who has a history of congestive heart failure, COPD, fibromyalgia, hypertension, hyperlipidemia, gastroesophageal reflux disease, hypothyroidism and obesity. The patient had been to an urgent care earlier in the week and she was called and notified of an abnormal lab and was told to present to the emergency department. When she presented here her D-dimer level was found to be raised. She had a CT angio of the chest with no evidence of any pulmonary emboli. The patient also complains of having shortness of breath, which has been longstanding. She also describes having swelling in her lower extremities. In regards to her shortness of breath, usually this is made worse with slight activity. She has had associated wheezing and an occasional nonproductive cough as well as chest pain. ProBNP level done at time of presentation was 928. An x-ray of her chest showed evidence of mild cardiomegaly. The patient is now admitted to the floor for further management. PAST MEDICAL HISTORY: Lupus, fibromyalgia, hypertension, congestive heart failure, hyperlipidemia, gastroesophageal reflux disease, COPD, obesity and hypothyroidism. SOCIAL HISTORY: No cigarette smoking, alcohol, or drug use. ALLERGIES: She is allergic to adhesive tape, Amoxil, clarithromycin, clavulanic acid, Augmentin, levofloxacin, NSAIDs, penicillins, shellfish and spironolactone. PAST SURGICAL HISTORY: Cholecystectomy, hysterectomy and back surgery. FAMILY HISTORY: Positive for cancer, hypertension and diabetes. MEDICATIONS: Include the following: Duloxetine 60 mg p.o. at bedtime, isosorbide mononitrate 30 mg p.o. daily, levothyroxine 175 mcg p.o. daily, montelukast 10 mg p.o. q.a.m., potassium chloride 20 mEq p.o. daily, tramadol 50 mg q.8 hours p.r.n., nitroglycerin 0.4 mg sublingual p.r.n., albuterol neb as directed, aspirin 81 mg p.o. daily, carvedilol 25 g p.o. twice a day, vitamin D 2000 units p.o. daily, vitamin B12 2000 mcg daily, hydroxychloroquine 200 mg p.o. daily, Spiriva 1 puff daily, lorazepam 0.5 mg p.o. twice a day p.r.n., MiraLAX 17 g daily, Flomax 0.4 mg p.o. daily. REVIEW OF SYSTEMS: Constitutional: She has a fever. HEENT: No headache. Eyes: Blurred vision. ENT: Sinus problems. Cardiovascular: Chest pain. GI: She does have constipation. : No dysuria. Musculoskeletal: She has fibromyalgia. Dermatology: No skin lesions. Hematology: No bleeding problems. Endocrine: She has thyroid disease but no diabetes. Psychiatry: No anxiety or depression. Allergy/Immunology: Symptoms suggestive of allergic rhinitis. PHYSICAL EXAMINATION: VITAL SIGNS: Temperature 98.6 degrees, pulse 61, respirations 25, blood pressure 145/80, oxygen saturation 99%. HEENT: Atraumatic, normocephalic. Anicteric. Extraocular movements intact. No oral lesions noted. NECK: No jugular venous distention. No lymphadenopathy or thyromegaly. CARDIOVASCULAR: S1, S2. RESPIRATORY: Evidence of good air entry bilaterally. ABDOMEN: Soft, nontender. No masses felt. EXTREMITIES: No evidence of edema. CENTRAL NERVOUS SYSTEM: No obvious focal deficits noted. LABORATORY STUDIES: WBCs 9.3, hematocrit 35.9, platelet count 252,000. INR 1.04. D-dimer 3.12. ABGs 7.34/56/205/100.4. Sodium 139, potassium 4.0, chloride 99, bicarb 29, BUN 23, and creatinine 1.2. ProBNP 928. IMAGING STUDIES: X-ray of chest, mild cardiomegaly. CTA of chest, no evidence of PE. EKG: Normal sinus rhythm with low voltage QRS, nonspecific T-wave abnormalities. ASSESSMENT AND PLAN: 1. Acute congestive heart failure (CHF). Monitor intake and output as well as daily weights. Use diuretics as needed. 2. Chronic obstructive pulmonary disease (COPD) exacerbation. Nebulized bronchodilators and steroids as well as antibiotics with oxygen supplementation. 3. Elevated D-dimer. Computed tomography angiography of chest was negative. Obtain venous Doppler of both lower extremities. 4. Hypertension. Optimize blood pressure control. 5. Coronary artery disease. Asymptomatic. 6. History of cerebrovascular accident (CVA). Maintain patient on aspirin and statin. Recommend PT. 7. Hypothyroidism. Continue levothyroxine. 8. History of lupus, aware. 9. Deep vein thrombosis prophylaxis with sequential compression devices. 10. Gastrointestinal prophylaxis with proton pump inhibitor. cc: Hans Vernon MD [facility]
[2019-12-14] MEDS: PRILOSEC PO SCH (06:30)
[2019-12-14] MEDS: LOVENOX SUBQ SCH (10:01)
[2019-12-14] MEDS: SINGULAIR PO SCH (10:01)
[2019-12-14] MEDS: PRAVACHOL PO SCH (10:01)
[2019-12-14] MEDS: ASPIRIN EC PO SCH (10:01)
--- NOTE | 2019-12-14 13:36 | ECHO REPORT ---
ORDER DATE: 12/14/2019 ECHOCARDIOGRAPHIC MEASUREMENTS: 1. Interventricular septum: 1.0 cm. 2. Left ventricular posterior wall: 1.0 cm. 3. Diastolic diameter: 5.2 cm. 4. Left atrium: 3.6 cm. 5. Aorta 3.1 cm. SUMMARY OF THE 2-DIMENSIONAL IMAGIN. Aortic valve leaflets were sclerosed, trileaflet, opening normally. 2. Mitral valve was mildly thickened, opening normally. 3. Tricuspid valve was normal. Normal left ventricular cavity size. Estimated ejection fraction of 65%. 4. There is mild tricuspid regurgitation. Peak velocity across the tricuspid valve was 2.9 m/sec. 5. Pulmonary artery systolic pressure of 43 mmHg. 6. There is mild mitral regurgitation, mild tricuspid regurgitation. 7. Peak velocity across the aortic valve was less than 2 m/sec. There is no aortic stenosis, there is mild aortic sclerosis associated with mild aortic regurgitation. 8. There is no pericardial effusion or obvious intracardiac mass or thrombus. cc: MD Hans Lau MD
[2019-12-14] MEDS ORDERED: BUMEX IV ONE (14:24)
[2019-12-14] MEDS: DUONEB (A & A) INH SCH ×3 (17:15→22:50)
[2019-12-14] MEDS: MIRALAX PO SCH ×2 (18:19→20:58)
--- NOTE | 2019-12-14 20:07 | PROGRESS NOTE ---
DATE: 12/14/2019 SUBJECTIVE: The patient states that she feels a little bit better. She states that she feels short of breath mainly with exertion. She does complain of some mild chest discomfort that comes and goes. OBJECTIVE: Vital signs: Temperature 98.8 degrees, blood pressure 142/34, heart rate 67, respirations 14, O2 saturation 99% on 3 L nasal cannula.General: This is a morbidly obese female sitting at the edge of the bed in no acute distress. Heart: S1, S2 normal. Regular rate and rhythm. Lungs: Equal air entry bilaterally. No wheezing. No rales. Abdomen: Positive bowel sounds. Soft, obese, nontender, nondistended. Extremities: Edema 2+ in the legs. Neurologic: The patient is alert and oriented x3. LABORATORY DATA: Troponin T: 11, CK 74. ASSESSMENT AND PLAN: 1. Acute diastolic congestive heart failure exacerbation. The patient does have peripheral edema. We will continue on Bumex and monitor the patient's daily weights, input and output. 2. Asthma. Continue with bronchodilator therapy. 3. Chronic kidney disease. Stable. 4. Hypothyroidism. Continue on Synthroid. 5. Obstructive sleep apnea. Continue with continuous positive airway pressure. 6. Left lower lobe lung nodule. The patient is followed by Dr. Pablo Nelson in [place]. 7. Coronary artery disease with history of myocardial infarction. Continue on the current cardiac medications. 8. Chronic constipation. We will adjust the patient's laxative regimen. 9. History of Sjogren syndrome. Continue on Plaquenil 3 times a week. cc: Judy Watson MD MTDD
[2019-12-14] MEDS: COREG PO SCH (20:57)
[2019-12-14] MEDS: LACTULOSE PO SCH (20:57)
[2019-12-14] MEDS: IMDUR PO SCH (20:58)
[2019-12-14] MEDS: COLACE PO SCH (20:58)
[2019-12-14] MEDS: CYMBALTA PO SCH (20:58)
[2019-12-15] MEDS: DUONEB (A & A) INH SCH ×5 (04:30→19:52)
[2019-12-15] MEDS: PRILOSEC PO SCH (06:34)
[2019-12-15] MEDS: SYNTHROID PO SCH (06:34)
[2019-12-15 07:07] LABS: HEMATOCRIT 30.9 % (37.0-47.0); HEMOGLOBIN 9.7 g/dL (12.0-16.0); MCH 29.7 PG (27-31); MCHC 31.4 g/dL (33-37); MCV 94.5 FL (81-99); MPV 10.3 FL (7.4-10.4); RBC 3.27 XMIL (4.2-5.4); RDW 14.1 % (11.5-14.5); WBC 8.23 X1000 (4.8-10.8)
--- NOTE | 2019-12-15 07:15 | Diag Imaging Result Doc PS360 ---
CHEST-1 VIEW - 12/15/2019 INDICATION: dyspnea COMPARISON: 12/13/2019 FINDINGS: Lung volumes are lower. There is accentuation in the bibasilar atelectasis or infiltrates. Stable significant cardiomegaly and pulmonary vascular congestion. No pleural effusion. IMPRESSION: Lower lung volumes with accentuation of the bibasilar atelectasis or infiltrates. Electronically signed by Oscar Dobbins 12/15/2019 7:13 AM
[2019-12-15 07:28] LABS: CALCIUM 8.8 mg/dL (8.8-10.2); CREATININE 1.1 mg/dL (0.5-0.9); POTASSIUM 4.1 mmol/L (3.5-5.1)
--- NOTE | 2019-12-15 07:45 | EKG Report ---
Test Performed on : 12/15/2019 07:21:18 AM Test Reason : chest pain Blood Pressure : / mmHG Vent. Rate : 058 BPM Atrial Rate : 058 BPM P-R Int : 166 ms QRS Dur : 094 ms QT Int : 496 ms P-R-T Axes : 060 021 067 degrees QTc Int : 486 ms Sinus bradycardia. Nonspecific T wave abnormality Prolonged QT Abnormal ECG When compared with ECG of 13-DEC-2019 15:31, (Unconfirmed) No significant change was found Confirmed by Makayla MORSE, Orville Rogers ([id number]) on 12/17/2019 9:10:10 AM
[2019-12-15] MEDS: SPIRIVA INH SCH (08:06)
[2019-12-15] MEDS ORDERED: MIRALAX PO SCH (09:00)
[2019-12-15] MEDS ORDERED: BUMEX PO SCH (09:00)
[2019-12-15] MEDS ORDERED: PRILOSEC PO SCH (09:00)
[2019-12-15] MEDS: LACTULOSE PO SCH ×2 (10:27→20:14)
[2019-12-15] MEDS: ASPIRIN EC PO SCH (10:27)
[2019-12-15] MEDS: SINGULAIR PO SCH (10:27)
[2019-12-15] MEDS: IMDUR PO SCH ×2 (10:28→20:14)
[2019-12-15] MEDS: COLACE PO SCH ×2 (10:28→20:14)
[2019-12-15] MEDS: COREG PO SCH ×2 (10:28→20:14)
[2019-12-15] MEDS: PLAQUENIL PO SCH (10:28)
[2019-12-15] MEDS: VITAMIN B-12 PO SCH (10:29)
[2019-12-15] MEDS: VITAMIN D PO SCH (10:30)
[2019-12-15] MEDS: PRAVACHOL PO SCH (10:30)
[2019-12-15] MEDS: LOVENOX SUBQ SCH ×3 (10:31→22:30)
--- NOTE | 2019-12-15 12:57 | CONSULTATION ---
DATE OF CONSULTATION: 12/15/2019 IMPRESSION: 1. Episodic chest discomfort, which she describes variably and vaguely. However, she does describe chest pressure that seems to radiate up into her throat and a smothering sensation. Symptoms seem to be aggravated by modest activity such as taking a shower. Serial cardiac enzymes benign/normal. 2. Suspected popliteal deep venous thrombosis, right side, based on preliminary report from venous Doppler study which was obtained because of abnormal D-dimer. Chest CT scan negative for pulmonary embolism. 3. Elevated B type natriuretic peptide level. Echocardiography shows normal left ventricular ejection fraction. Suspect recurrent congestive heart failure with preserved left ventricular ejection fraction, which she is known to have. 4. Obesity. 5. Known coronary atherosclerosis. The patient had small myocardial infarction in 2014 with coronary angiography at that time reporting occluded relatively smaller obtuse marginal. She was managed medically. She had a pharmacologic myocardial perfusion study a year ago which reportedly indicated mixed infarct/ischemic pattern in left circumflex distribution. Left ventricular ejection fraction normal. She continued on medical management. 6. Hypertensive cardiovascular disease with left ventricular diastolic dysfunction. 7. Chronic obstructive pulmonary disease. 8. Hyperlipidemia. 9. Gastroesophageal reflux disease. 10. Connective tissue disorder. 11. Hypothyroidism. RECOMMENDATIONS: 1. Continue Lovenox. 2. Diurese as you are doing. 3. Although chest symptoms are described somewhat vaguely, several features are concerning for possibility of unstable angina. Given known history of coronary disease and obesity, it is probably prudent for her to have reevaluation with coronary angiography via radial artery approach. This was discussed with her including potential hazards and she wished to proceed. 4. Given allergy to shellfish, we will premedicate prior to contrast dye exposure. HISTORY OF PRESENT ILLNESS: This 74-year-old white female, with past history of obesity, atherosclerotic coronary disease as outlined above, COPD, hypertension, hyperlipidemia, gastroesophageal reflux disease, congestive heart failure with preserved left ejection fraction, obstructive sleep apnea and hypothyroidism, was admitted for further evaluation of chest symptoms. Cardiology was consulted to assist with evaluation. She relates that she started experiencing chest discomfort yesterday morning. She had gotten up to go to the bathroom. She describes her chest symptoms rather vaguely. She reports chest pressure that extends up into her neck anteriorly. The discomfort lasted perhaps 5 to 10 minutes and resolved after she went back and got in bed. She relates some associated smothering. She went to urgent care for evaluation and several laboratory studies were obtained. She was subsequently referred to the emergency room for further evaluation. D-dimer was noted to be abnormal and she had chest CT scan which was negative for pulmonary embolus. She had venous Doppler study, which preliminary result suggested. Right popliteal venous thrombosis. Pro B-natriuretic peptide level was elevated. She is being diuresed for recurrent CHF with preserved left ventricular ejection fraction. Indeed echocardiography indicated left ejection fraction normal. She relates that she has been having tendency for increasing shortness of breath and smothering for several months. She describes some chest pressure with this. PAST MEDICAL HISTORY: 1. Atherosclerotic coronary disease as outlined above. 2. Obesity. 3. Hypertensive cardiovascular disease. 4. Congestive heart failure with preserved left ventricular ejection fraction. 5. Obstructive sleep apnea. 6. Hyperlipidemia. 7. Gastroesophageal reflux disease. 8. Chronic obstructive pulmonary disease. 9. Hypothyroidism. PAST SURGICAL HISTORY: The past surgical history includes cholecystectomy, hysterectomy, and unspecified back surgery. ALLERGIES: She has multiple allergies as listed. It is noteworthy that she is allergic to shellfish. MEDICATIONS PRIOR TO ADMISSION: As listed. SOCIAL HISTORY: She does not smoke nor use alcohol. She lives in [place], [place]. FAMILY HISTORY: Positive for hypertension, diabetes, and coronary atherosclerosis. REVIEW OF SYSTEMS: Pulmonary: Noncontributory beyond History of Present Illness. Gastrointestinal: Noncontributory beyond History of Present Illness. Constitutional: Noncontributory beyond History of Present Illness. Remainder of Review of Systems negative/noncontributory beyond History of Present Illness with 14 total systems reviewed. PHYSICAL EXAMINATION: General: Examination reveals an obese older white female in no distress on supplemental oxygen per nasal cannula. Vital signs: Blood pressure 137/70, heart rate 95, oxygen saturation 97% on nasal cannula oxygen at 2 L/minute. HEENT: Extraocular movements appear intact. Mucous membranes moist. Neck: Supple. Jugular distention cannot be appreciated. There are no carotid bruits. Chest: Clear to auscultation bilaterally. Cardiac: Examination reveals a regular rate and rhythm without appreciable murmur or gallop. Abdomen: Soft. Bowel sounds normal. Extremities: The extremities demonstrate mild pretibial edema on the right, with chronic venous stasis bilaterally and some venous varicosities. Neurologic: Examination reveals her to be alert and fully oriented. Speech is fluent. She moves all 4 extremities equally well. Skin: Warm and dry. Psychiatric: Examination reveals mood to be appropriate. DATA: A 12-lead EKG demonstrates normal sinus rhythm, low voltage QRS and nonspecific T-wave abnormality. LABORATORY DATA: White blood cell count 8.23, hematocrit 30.9, hemoglobin 9.7, platelet count 221,000. Pro time 13.8, INR 1.04, PTT 26.8. D-dimer 3.12. Sodium 142, potassium 4.1, chloride 102, carbon dioxide 29, BUN 27, creatinine 1.1, glucose 131. Initial troponin T high sensitivity 16, with followup troponin T high sensitivity 11, and further follow-up troponin T high sensitivity 11. Initial CPK 72, with followup CPK 60, 57, and 74. Bet-E-bdfsmnyxlsh peptide level on admission 928, with followup Dly-W-argjacqczez peptide level 1,645. cc: Ian Hall MD
--- NOTE | 2019-12-15 13:48 | PROGRESS NOTE ---
DATE: 12/15/2019 SUBJECTIVE: The patient continues to complain of vague chest pain and shortness of breath with minimal exertion. OBJECTIVE: Vital Signs: Temperature 98 degrees, blood pressure 137/70, heart rate 95, respirations 18, and O2 saturation 97% on 2 L nasal cannula. General: This is a morbidly obese female lying in bed in no acute distress. Heart: S1, S2 normal. Regular rate and rhythm. Lungs: Equal air entry bilaterally. Diminished breath sounds in the lung bases. Abdomen: Positive bowel sounds. Soft, obese, nontender, and nondistended. Extremities: 2+ edema bilaterally. Neurologic: The patient is alert and oriented x3. LABORATORY: White blood cell count 8.2, hemoglobin 9.7, hematocrit 30, and platelets 221,000. Sodium 142, potassium 4.1, chloride 102, CO2 29, BUN 27, creatinine 1.1, and glucose 131. Chest x-ray shows bibasilar atelectasis or infiltrates. ASSESSMENT AND PLAN: 1. Chest pain. The case was discussed with Cardiology, and they are planning to do a heart catheterization tomorrow. 2. Acute diastolic congestive heart failure exacerbation. Continue on the current cardiac medications. 3. Asthma. Continue with bronchodilator therapy. 4. Chronic kidney disease. Stable. 5. Hypothyroidism. Continue on Synthroid. 6. Acute left popliteal DVT. The patient will be started on Lovenox, and then transition to Xarelto after the heart catheterization tomorrow. 7. Left lower lobe lung nodule. Aware. The patient is followed by Dr. Pablo Nelson in [place]. 8. Coronary artery disease with a history of NE, and an obtuse marginal occlusion. Aware. 9. Sjogren's syndrome. The patient is on Plaquenil. 10. Chronic constipation. Continue on the current laxative regimen. 11. MILE. Continue on CPAP at bedtime. 12. Morbid obesity. Aware. cc: Judy Watson MD [facility]
[2019-12-15] MEDS: ULTRAM PO PRN (16:34)
[2019-12-15] MEDS: PEPCID PO SCH ×2 (16:55→20:13)
[2019-12-15] MEDS: MIRALAX PO SCH ×2 (16:56→20:11)
--- NOTE | 2019-12-15 17:04 | Extremity Venous Study ---
PROCEDURE NAME: Venous U/S Bilateral Legs - 12/15/2019 REQUESTING PHYSICIANS: Dr. Watson EXAM FOR COMPARISON: 10/22/2019. INDICATIONS: Edema in legs. FINDINGS: Deep superficial veins bilateral lower extremities visualized. In the left posterior tibial vein there is lack of compressibility consistent with acute DVT at the level of the mid calf. Otherwise, the vessels are compressible with forward flow and no evidence of intraluminal thrombus. IMPRESSION: Acute deep venous thrombosis in the left posterior tibial vein. cc: MD Judy Barton MD
[2019-12-15] MEDS: CYMBALTA PO SCH (20:14)
[2019-12-16] MEDS: DUONEB (A & A) INH SCH ×7 (04:03→23:19)
[2019-12-16] MEDS: ULTRAM PO PRN (05:35)
[2019-12-16] MEDS: SYNTHROID PO SCH (05:36)
[2019-12-16] MEDS: PRILOSEC PO SCH (06:27)
[2019-12-16] MEDS ORDERED: SYNTHROID PO SCH (07:00)
[2019-12-16 07:13] LABS: INR 1.1; PROTIME 14.3 Seconds (11.0-16.0)
[2019-12-16 07:14] LABS: HEMOGLOBIN 9.7 g/dL (12.0-16.0); MCH 29.8 PG (27-31); MCHC 31.3 g/dL (33-37); MCV 95.4 FL (81-99); MPV 10.6 FL (7.4-10.4); RBC 3.25 XMIL (4.2-5.4); RDW 14.3 % (11.5-14.5); WBC 7.21 X1000 (4.8-10.8)
[2019-12-16 07:31] LABS: CALCIUM 8.2 mg/dL (8.8-10.2); CREATININE 1.4 mg/dL (0.5-0.9)
[2019-12-16] MEDS: SPIRIVA INH SCH (07:51)
[2019-12-16] MEDS ORDERED: BENADRYL PO ONE (09:00)
[2019-12-16] MEDS ORDERED: SOLU-MEDROL IV ONE (09:00)
[2019-12-16] MEDS ORDERED: ISOPTIN ONE (10:56)
[2019-12-16] MEDS ORDERED: HEPARIN 1000 UNITS/NS 2,000 UNIT/1,000 ML IV.SOLN ONE (10:57)
[2019-12-16] MEDS ORDERED: NS 1,000 ML IV SCH (11:30)
[2019-12-16] MEDS ORDERED: VERSED ONE (12:04)
[2019-12-16] MEDS ORDERED: CLAVE PUMP SET NO FILTER 12260 ONE (12:04)
[2019-12-16] MEDS ORDERED: DILAUDID ONE (12:04)
[2019-12-16] MEDS ORDERED: NS 1,000 ML ONE (12:05)
[2019-12-16] MEDS ORDERED: CLAVE TWINSITE 32 IN 11959 ONE (12:05)
[2019-12-16] MEDS ORDERED: SOLU-MEDROL ONE (12:27)
[2019-12-16] MEDS ORDERED: BENADRYL ONE (12:28)
[2019-12-16] MEDS: VITAMIN D PO SCH (12:32)
[2019-12-16] MEDS: ASPIRIN EC PO SCH (12:32)
[2019-12-16] MEDS: VITAMIN B-12 PO SCH (12:32)
[2019-12-16] MEDS: SINGULAIR PO SCH (12:32)
[2019-12-16] MEDS: LACTULOSE PO SCH ×2 (12:33→20:36)
[2019-12-16] MEDS: PRAVACHOL PO SCH (12:33)
[2019-12-16] MEDS: MIRALAX PO SCH ×2 (12:33→20:38)
[2019-12-16] MEDS: COLACE PO SCH ×2 (12:36→20:36)
[2019-12-16] MEDS: IMDUR PO SCH (12:36)
[2019-12-16] MEDS: COREG PO SCH ×2 (12:36→20:36)
[2019-12-16] MEDS: PEPCID PO SCH (12:38)
--- NOTE | 2019-12-16 13:31 | CARDIAC CATH REPORT ---
PROCEDURE NAME: - INDICATIONS: Chest pain. PROCEDURES PERFORMED: 1. Left heart catheterization. 2. Coronary angiography. PROCEDURE IN DETAIL: Ms. Chadwick was brought to the catheterization laboratory in fasting state. Informed Consent was obtained, and prepped in the usual fashion. She was anesthetized over the right radial artery. A 5-Qatari sheath was placed via true Seldinger technique. Radial cocktail was administered. Catheters were introduced. Hemodynamic measurements were made in the ascending thoracic aorta. Coronary angiography was performed in multiple views using JL3.5 and JR4 diagnostic catheters. Left heart catheterization was performed using the JR4. At the conclusion of the procedure, all sheaths and catheters were removed. TR band was left inflated at 13 mL of air with good capillary refill. Good hemostasis. 5-10 mL of blood loss. 35 mL of Visipaque. No apparent complications. FINDINGS: 1. The left main is very short and appears normal. 2. Left anterior descending originates from the left main. There are very minor luminal irregularities in the proximal portion of the vessel. Otherwise, no significant disease was identified. 3. Circumflex originates from the left main. I do not see any significant disease as identified in the circumflex territory. 4. Right coronary originates from the right coronary cusp. Minor luminal irregularities are noted in the mid vessel. Otherwise, it is a normal vessel. 5. Left heart catheterization demonstrated an LV pressure of 164/11 with an EDP of 20/5. Aortic blood pressure is 164/67 with a mean of 108. ASSESSMENT: Ms. Chadwick is a 74-year-old female with a history of minimal coronary disease who presented with chest pain. PLAN: She has no flow-limiting lesions. She has minor RCA and proximal LAD disease with an elevated LVEDP. We will discuss the results with her inpatient treating lumber inspector is Dr. Hall. Otherwise, she will return to the floor for usual postprocedure convalescence. cc: Ford Nobles MD
--- NOTE | 2019-12-16 13:37 | EKG Report ---
Test Performed on : 12/16/2019 1:32:36 PM Test Reason : post cath Blood Pressure : / mmHG Vent. Rate : 056 BPM Atrial Rate : 056 BPM P-R Int : 172 ms QRS Dur : 094 ms QT Int : 492 ms P-R-T Axes : 063 006 068 degrees QTc Int : 474 ms Sinus bradycardia. Otherwise normal ECG When compared with ECG of 15-DEC-2019 07:21, (Unconfirmed) No significant change was found Confirmed by Makayla MORSE, Orville Rogers ([id number]) on 12/17/2019 9:11:16 AM
--- NOTE | 2019-12-16 15:16 | PROGRESS NOTE ---
DATE: 12/16/2019 SUBJECTIVE: The patient had coronary angiography today which demonstrated mild coronary atherosclerosis in posterior descending artery and a right dominant coronary system. Minor irregularities were noted in the left anterior descending coronary artery. There were no high- grade coronary obstructive lesions and there was no evidence of any previous obtuse marginal occlusion. Left ventricular end-diastolic pressure of 25. The patient continues without chest symptoms following cardiac catheterization procedure. OBJECTIVE: Blood pressure 146/62, heart rate 83, oxygen saturation 100%. HEENT Examination: Extraocular movements appear intact. Mucous membranes moist. Neck: Supple without jugular venous distention. Chest: Clear to auscultation bilaterally. Cardiac Examination: Reveals a regular rate and rhythm without appreciable murmur or gallop. There is some mild distal right lower extremity edema. Laboratory Data: Includes a white blood cell count of 7.21, hematocrit 31.0, hemoglobin 9.7, platelet count 205,000. Sodium 140, potassium 4.0, chloride 99, carbon dioxide 29, BUN 30, creatinine 1.4, glucose 89. IMPRESSION: 1. Recent chest discomfort. Discomfort may very well be related to congestive heart failure with preserved left ventricular ejection fraction given elevated left ventricular end-diastolic pressure. There are no significant coronary obstructive lesions on coronary angiography. 2. Suspected right popliteal venous thrombosis. 3. Very mild coronary atherosclerosis. 4. Obesity. 5. Hypertensive cardiovascular disease with left ventricular diastolic dysfunction. RECOMMENDATIONS: 1. Continue anticoagulation with Lovenox, transitioning to oral anticoagulant such as Eliquis. 2. Continue medical management of patient's coronary atherosclerosis. 3. Increase diuretic therapy with Bumex. Patient was on Bumex 0.5 mg daily. Additional diuresis would probably be helpful and discharge on Bumex 1 mg daily. 4. Reasonable for patient to probably be discharged to home tomorrow on anticoagulation and increased dose of Bumex. cc: Ian Hall MD
[2019-12-16] MEDS ORDERED: LASIX IV ONE (17:00)
--- NOTE | 2019-12-16 19:02 | PROGRESS NOTE ---
DATE: 12/16/2019 SUBJECTIVE: The patient is resting comfortably in bed. No acute events noted overnight. OBJECTIVE: Vital signs: Temperature 97.1 degrees, blood pressure 148/87, heart rate 63, respirations 17, O2 saturation 95% on 3 L nasal cannula. General: This is a morbidly obese female lying in bed in no acute distress. Heart: S1, S2 normal. Regular rate and rhythm. Lungs: Clear to auscultation bilaterally. Abdomen: Positive bowel sounds. Soft, obese, nontender, nondistended. Extremities: 2+ edema bilaterally. Neurological: The patient is alert and oriented x3. LABORATORY DATA: White blood cell count 7.2, hemoglobin 9.7, hematocrit 31, platelets 205,000. Sodium 140, potassium 4, chloride 99, CO2 29, BUN 30, creatinine 1.4, glucose 89, magnesium 2.1. ASSESSMENT AND PLAN: 1. Chest pain. The patient had a heart catheterization done today that did not reveal any obstructive lesions. We will continue with the current cardiac regimen. 2. Acute diastolic congestive heart failure exacerbation. Continue on the current regimen as directed by the van loader. 3. Right popliteal deep venous thrombosis. The patient is currently on full dose Lovenox, which will be transitioned to an oral anticoagulant tomorrow. 4. Morbid obesity. Aware. 5. Acute kidney injury on chronic kidney disease. We will monitor the renal function closely. Urine studies are pending. 6. Asthma. Stable. 7. Hypothyroidism. Continue on Synthroid. 8. Sjgren syndrome. The patient is on Plaquenil. 9. Left lower lobe lung nodule. Aware. The patient is followed by Dr. Pablo Nelson in [place]. 10. Chronic constipation. Continue on scheduled laxative therapy. 11. Obstructive sleep apnea. Continue on CPAP at bedtime. 12. Disposition. Continue with physical therapy. Hopefully, the patient will be able to be discharged home tomorrow. cc: Judy Watosn MD [facility]
[2019-12-16] MEDS: LOVENOX SUBQ SCH (20:35)
[2019-12-16] MEDS: CYMBALTA PO SCH (20:36)
[2019-12-17 03:10] LABS: URINE SOURCE CLEAN CATCH
[2019-12-17 03:19] LABS: BILIRUBIN URINE NEGATIVE (NEGATIVE); BLOOD URINE NEGATIVE (NEGATIVE); COLOR STRAW; GLUCOSE URINE NEGATIVE (NEGATIVE); KETONE URINE NEGATIVE (NEGATIVE); LEUKOCYTES URINE NEGATIVE (NEGATIVE); NITRITE URINE NEGATIVE (NEGATIVE); PH URINE 6.5; PROTEIN URINE NEGATIVE (NEGATIVE); SP GRAVITY URINE 1.009; TURBIDITY URINE CLEAR (CLEAR); UROBILINOGEN URINE NORMAL (NORMAL)
[2019-12-17 03:20] LABS: UR EPITHELIAL CELLS <10 /HPF (<10); URINE BACTERIA NEGATIVE /HPF; URINE RBC <10 /HPF (<10); URINE WBC <10 /HPF (<10)
[2019-12-17 03:39] LABS: UR CREAT RANDOM 24.8 mg/dL (11-20); UR PROT RANDOM < 4.0 mg/dL; UR SODIUM 43 mmoll; UR UREA NITROGEN RANDOM 298 mg/dL
[2019-12-17] MEDS: DUONEB (A & A) INH SCH ×3 (04:08→11:39)
[2019-12-17 06:07] LABS: HEMATOCRIT 33.7 % (37.0-47.0); HEMOGLOBIN 10.6 g/dL (12.0-16.0); MCH 29.4 PG (27-31); MCHC 31.5 g/dL (33-37); MCV 93.6 FL (81-99); MPV 10.6 FL (7.4-10.4); RBC 3.6 XMIL (4.2-5.4); RDW 13.9 % (11.5-14.5); WBC 6.5 X1000 (4.8-10.8)
[2019-12-17] MEDS: PRILOSEC PO SCH (06:15)
[2019-12-17] MEDS: SYNTHROID PO SCH (06:16)
[2019-12-17 06:31] LABS: CALCIUM 8.8 mg/dL (8.8-10.2); POTASSIUM 3.8 mmol/L (3.5-5.1)
--- NOTE | 2019-12-17 07:10 | Diag Imaging Result Doc PS360 ---
EXAM: CHEST-PORTABLE INDICATION: dyspnea TECHNIQUE: One view COMPARISON: 12/15/2019 FINDINGS: Mild bibasilar atelectasis and/or infiltrate is approximately stable. No new consolidation is identified. Cardiac silhouette is stable. IMPRESSION: Stable chest Electronically signed by Sagar Hunter 12/17/2019 7:07 AM
[2019-12-17] MEDS ORDERED: SYMBICORT 80/4.5 MICROGM INHALER INH SCH (07:30)
[2019-12-17] MEDS: SPIRIVA INH SCH (07:56)
[2019-12-17] MEDS ORDERED: IMDUR PO SCH (09:00)
[2019-12-17] MEDS: LOVENOX SUBQ SCH (09:37)
[2019-12-17] MEDS: VITAMIN B-12 PO SCH (09:38)
[2019-12-17] MEDS: COREG PO SCH (09:38)
[2019-12-17] MEDS: PRAVACHOL PO SCH (09:38)
[2019-12-17] MEDS: ASPIRIN EC PO SCH (09:38)
[2019-12-17] MEDS: SINGULAIR PO SCH (09:38)
[2019-12-17] MEDS: VITAMIN D PO SCH (09:38)
[2019-12-17] MEDS: PLAQUENIL PO SCH (09:38)
[2019-12-17] MEDS: LACTULOSE PO SCH (09:39)
[2019-12-17] MEDS: COLACE PO SCH (09:39)
[2019-12-17] MEDS: MIRALAX PO SCH (09:46)
[2019-12-17 11:26] VITALS: BP 146/74
--- NOTE | 2019-12-22 14:59 | DISCHARGE SUMMARY ---
ADMISSION DATE: 12/13/2019 DISCHARGE DATE: 12/17/2019 FINAL DISCHARGE DIAGNOSES: 1. Chest pain. 2. Acute diastolic congestive heart failure exacerbation. 3. Right popliteal deep venous thrombosis. 4. Morbid obesity. 5. Acute kidney injury on chronic kidney disease. 6. Asthma. 7. Hypothyroidism. 8. Sjogren's syndrome. 9. Left lower lobe lung nodule. 10. Chronic constipation. 11. Obstructive sleep apnea. CONSULTATIONS: Cardiology consultation with Dr. Hall. IMAGIN. Portable chest x-ray performed on 12/13/2019, which revealed mild cardiomegaly. 2. Pulmonary arteriogram performed on 12/13/2019, which revealed no pulmonary emboli. A 7 mm pleural based nodule in the left lower lobe. 3. Echocardiogram performed on 12/14/2019, which revealed an ejection fraction of 65% and sclerosed aortic valve leaflets. 4. Portable chest x-ray performed on 12/15/2019, which revealed lower lung volumes with bibasilar atelectasis or infiltrates. 5. Bilateral venous Doppler study which revealed an acute DVT in the left posterior tibial vein. 6. Chest x-ray performed on 12/17/2019, which revealed a stable chest. HOSPITAL COURSE: Ms. Chadwick is a 74-year-old female with a history of multiple medical problems who presented to the ER with shortness of breath. A chest x-ray was done on admission that was unremarkable. This was then followed up with a pulmonary arteriogram due to an elevated D-dimer. That revealed no evidence of pulmonary embolism. Bilateral venous Doppler studies were done, which revealed an acute left popliteal DVT. Due to the patient's complaints of persistent shortness of breath with minimal exertion and occasional chest pain, Cardiology was consulted for further recommendations. Given the patient's medical history and cardiac history, a left heart catheterization was recommended. The patient underwent cardiac catheterization on 12/16/2019. It revealed minor RCA and proximal LAD disease with an elevated LVEDP. It was recommended that the patient continue with current cardiac medications as prescribed. The patient continued to improve clinically. She was transitioned to Xarelto for her DVT and was cleared for discharge home. DISCHARGE MEDICATIONS: 1. Colace 100 mg oral twice a day. 2. Plaquenil 200 mg oral Friday, Friday, and Friday. 3. Symbicort 2 puffs inhaled twice a day. 4. Synthroid 200 mcg oral every other day. 5. Synthroid 175 mcg oral every other day. 6. Xarelto 15 mg oral twice a day x21 days. 7. Xarelto 20 mg with supper to begin on 01/07/2020. 8. DuoNeb 3 mL inhaled every 4 hours p.r.n. for shortness of breath. 9. Lactulose 30 mL oral twice a day p.r.n. for constipation. 10. Imdur 30 mg oral twice a day. 11. Singulair 10 mg oral every morning. 12. Klor-Con 20 mEq oral every morning. 13. Cymbalta 60 mg oral at bedtime. 14. Tramadol 50 mg oral every 8 hours p.r.n. for pain. 15. Nitroglycerin 0.4 mg sublingual q.5 minutes p.r.n. for chest pain. 16. Aspirin 81 mg oral daily. 17. Vitamin D3 2000 units oral daily. 18. Vitamin B12 1000 mcg oral daily. 19. Spiriva 1 puff inhaled daily. 20. MiraLAX 17 g oral daily. 21. Coreg 25 mg oral twice a day. 22. Omeprazole 40 mg p.o. daily. 23. Benefiber 1 packet oral 3 times a day. 24. Bumex 1 mg oral daily. DISCHARGE DIET: Low-sodium, low-cholesterol diet. ACTIVITY: As tolerated. FOLLOWUP INSTRUCTIONS: The patient will need to follow up with Dr. Delong 1 week. The patient will need to follow up with as scheduled by his clinic. cc: Judy Watson MD [facility]
== END 2019-12-17 14:11 | disposition home health service (06) | DRG 286 ==
LOC: ED 15:23 → 3N 22:51 → SUATTDRO 22:51 → 2N 12-16 13:18
PROVIDERS: ATTEND Internal Medicine